=== PATIENT | male | born 1955 | race Hispanic/Latino ===

== ENCOUNTER 2020-01-13 16:45 | Inpatient (IN) | payer OTHER, SELFPAY ==
[2020-01-13 18:15] LABS: Basophils % (Auto) 0.1 % (0.0-1.8); Hematocrit 46.4 % (35.5-45.6); Hemoglobin 15.9 gm/dl (11.8-15.2); Mean Corpuscular HGB Conc 34 % (32-34); Mean Corpuscular Volume 95 fl (84-94); Monocytes # (Auto) 0.5 K/mm3 (0.0-0.8); Monocytes % (Auto) 6.6 % (0.0-7.3); Platelet Count 195 K/mm3 (140-440); Red Blood Count 4.88 M/mm3 (3.65-5.03); Red Cell Distribution Width 13.5 % (13.2-15.2)
[2020-01-13 18:30] LABS: BUN/Creatinine Ratio 13; Blood Urea Nitrogen 13 mg/dL (9-20); Calcium 9.8 mg/dL (8.4-10.2); Hemolysis Index 7
[2020-01-13] MEDS ORDERED: SODIUM CHLORIDE 0.9% 500 ML 500 ML IV ONE (18:48)
[2020-01-13] MEDS ORDERED: METOCLOPRAMIDE 10 MG/2 ML INJ IV ONE (18:48)
--- NOTE | 2020-01-13 18:49 | Emergency Department Report ---
ED General Adult HPI - General Chief complaint: Dizziness Stated complaint: DIZZINESS PUI?: No Time Seen by Provider: 01/13/20 17:59 Source: patient, EMS ( EMS documentation not available at time of chart dictation ), RN notes reviewed Mode of arrival: Stretcher Limitations: Physical Limitation - History of Present Illness Initial comments: The patient is a 64-year-old gentleman. He is not known to myself previously. He does not have a primary care doctor. He states no chronic medical conditions that he is aware of. He denies fever, loss of taste, loss of smell, and coronavirus risk factor. The patient is brought to the hospital by emergency medical services. The patient states that yesterday, he was in his usual state of health, working, when at approximately 1:00 PM, developed a headache, which is associated with right upper extremity numbness, tingling, clumsiness, loss of balance, and right lower extremity weakness, and clumsiness. The headache is described as a "wham." The patient indicates that the headache did not feel thunderclap in nature. He reports that he lost his balance, and fell onto his back. He denies neck pain. There is a positive cough. He is not sure if he is talking in his normal voice. There is no chest pain. There is no abdominal pain. There is positive nausea. There were no irritative or obstructive urinary symptoms. The patient also describes chest tightness, which started earlier on yesterday, but the tightness does not radiate to the back, arms or neck. There is no vomiting or diaphoresis. He does not endorse exertional shortness of breath. Chest tightness started after his headache and neurologic symptoms. -: Sudden, days(s) Location: head Quality: other Consistency: other Improves with: other Worsens with: other Associated Symptoms: other - Related Data Previous Rx's Medication Instructions Recorded Last Taken Type Nicotine [Habitrol] 21 mg TD DAILY #45 patch 04/20/13 Unknown Rx amLODIPine 5 mg PO QDAY #30 tablet 04/20/13 Unknown Rx Allergies Allergy/AdvReac Type Severity Reaction Status Date / Time No Known Allergies Allergy Unverified 04/16/13 21:15 ED Review of Systems ROS: Stated complaint: DIZZINESS Other details as noted in HPI Constitutional: malaise. denies: fever Eyes: denies: eye discharge ENT: denies: congestion Respiratory: cough Cardiovascular: chest pain Gastrointestinal: nausea. denies: abdominal pain Genitourinary: denies: dysuria Musculoskeletal: myalgia Neurological: headache, weakness, numbness, abnormal gait Psychiatric: as per HPI Hematological/Lymphatic: as per HPI. denies: easy bleeding ED Past Medical Hx - Past Medical History Previous Medical History?: Yes Hx Hypertension: Yes (non-compliance) - Surgical History Past Surgical History?: No - Social History Smoking Status: Current Every Day Smoker Substance Use Type: None - Medications Home Medications: Home Medications Medication Instructions Recorded Confirmed Last Taken Type Nicotine [Habitrol] 21 mg TD DAILY #45 patch 04/20/13 Unknown Rx amLODIPine 5 mg PO QDAY #30 tablet 04/20/13 Unknown Rx ED Physical Exam - General Limitations: Physical Limitation General appearance: alert, in no apparent distress - Head Head exam: Present: atraumatic, normocephalic - Eye Eye exam: Present: normal appearance, EOMI Pupils: Absent: unequal - ENT ENT exam: Present: normal exam, normal orophraynx, mucous membranes moist, normal external ear exam, other (Patient has poor dentition) - Neck Neck exam: Present: normal inspection, full ROM. Absent: tenderness, meningismus - Respiratory Respiratory exam: Present: rhonchi (Rhonchi noted in the right hemithorax). Absent: respiratory distress - Cardiovascular Cardiovascular Exam: Present: regular rate, normal rhythm, normal heart sounds. Absent: bradycardia, tachycardia, irregular rhythm, systolic murmur, diastolic murmur, rubs, gallop - GI/Abdominal GI/Abdominal exam: Present: soft, normal bowel sounds. Absent: distended, tenderness, guarding, rebound, rigid, pulsatile mass - Rectal Rectal exam: Present: deferred - Extremities Exam Extremities exam: Present: normal inspection, full ROM, other (2+ pulses noted in the bilateral upper and lower extremities. There is no palpable cord. negative Homans sign. Muscular compartments are soft. The pelvis is stable.). Absent: pedal edema, calf tenderness - Back Exam Back exam: Present: normal inspection. Absent: tenderness, CVA tenderness (R), CVA tenderness (L), paraspinal tenderness, vertebral tenderness - Neurological Exam Neurological exam: Present: alert, oriented X3 - Expanded Neurological Exam Expanded Neurological exam: Present: tremor, protecting the airway. Absent: innattentive, receptive aphasia, expressive aphasia, total aphasia Patient oriented to: Present: person, place, time Speech: Present: fluid speech Cranial nerves: Tongue Deviation: Normal, Nystagmus: Abnormal Right, Abnormal Left (There is right beating non-fatigable nystagmus noted. There is no left- sided nystagmus noted), Facial Sensation: Normal, Facial Palsy with Forehead Movement: Normal, Facial Palsy without Forehead Movement: Normal Ataxia: Present: yes (The patient is not able to walk) Cerebellar function: Finger to Nose: Abnormal Right, Heel to [place]: Abnormal Right, Romberg: Abnormal Right, Abnormal Left (Unable to test) Upper motor neuron: Pronator Drift: Abnormal Right, Sensory Extinction: Abnormal Right Sensory exam: Upper Extremity Light Touch: Abnormal Right Motor strength exam: RUE: 4, LUE: 5, RLE: 4, LLE: 5 Best Eye Response (Pari): (4) open spontaneously Best Motor Response (Kingman): (6) obeys commands Best Verbal Response (Pari): (5) oriented Kingman Total: 15 - Psychiatric Psychiatric exam: Present: anxious - Skin Skin exam: Present: warm, dry, intact, normal color. Absent: rash ED Course Vital Signs 01/13/20 01/13/20 01/13/20 18:04 18:31 18:45 Temperature Pulse Rate 81 81 78 Respiratory 14 20 Rate Blood Pressure 157/96 157/96 O2 Sat by Pulse 96 95 Oximetry 01/13/20 01/13/20 01/13/20 19:00 19:02 19:29 Temperature 98.9 F Pulse Rate 77 82 Respiratory 15 15 Rate Blood Pressure 157/96 157/96 O2 Sat by Pulse 96 Oximetry 01/13/20 01/13/20 01/13/20 19:31 19:45 20:01 Temperature Pulse Rate 80 77 79 Respiratory 16 13 19 Rate Blood Pressure 157/96 157/96 157/96 O2 Sat by Pulse Oximetry 01/13/20 01/13/20 20:15 20:31 Temperature Pulse Rate 78 78 Respiratory 12 14 Rate Blood Pressure 157/96 157/96 O2 Sat by Pulse Oximetry - Reevaluation(s) Reevaluation #1: 01/13/20 19:02 Differential diagnosis, including but not limited to: Subacute stroke, aortic dissection, aspiration Acute coronary syndrome Assessment and plan: 64-year-old gentleman, who denies DVT and pulmonary embolism risk factors, who is low risk by Wells criteria who denies COVID symptomatology, who was in his usual state of health yesterday, when at approximately 1:00 PM, developed a headache, and concerning neurologic findings, including unsteady gait, clumsiness in the right arm and right leg. On his exam, he is non-fatigable right beating nystagmus with both eyes, we do not see an internuclear ophthalmoplegia, he has clumsiness in his right arm and leg, decreased sensation to light touch in his right arm, and weakness in his right arm. The patient is not a TPA candidate as he presents more than 4.5 hours after s ymptom onset. He is unlikely to benefit from endovascular intervention, but we will obtain a CT angiogram head and neck to evaluate for large vessel occlusion, and also aortic dissection extending into the carotid circulation. There is no pulsatile abdominal mass, there are equal pulses in the upper and lower extremities, he does not endorse abdominal pain, he does not endorse posterior thoracic pain. Therefore, it is unlikely that he has an aortic dissection distal to the diaphragm. We will also treat his symptoms. We will obtain an x-ray of the chest. I discussed plan of care with the patient, who verbalized understanding, and who is amenable to this plan of care. Reevaluation #2: 01/13/20 21:21 CT angiogram neck is reviewed and appreciated. I contacted the interpreting radiologist, and we discussed the study. He endorses that the patient may have an occluded right vertebral artery at the level of C1/2. I [address] scan, and asked them to [facility] Crown Buffer to reach out to [facility] to discuss. 01/13/20 21:30 01/13/20 21:34 Images were reviewed by [facility], Dr. Willis. They recommend that patient does not require transfer for endovascular intervention at this time. Hospital physician, Dr. Ebony Benjamin to admit ED Medical Decision Making - Lab Data Result diagrams: 01/13/20 17:41 01/13/20 17:41 Vital Signs 01/13/20 01/13/20 01/13/20 18:04 18:31 18:45 Pulse Rate 81 81 78 Respiratory 14 20 Rate Blood Pressure 157/96 157/96 O2 Sat by Pulse 96 95 Oximetry Lab Results 01/13/20 01/13/20 01/13/20 Range/Units 17:41 17:41 17:41 WBC 7.4 (4.5-11.0) K/mm3 RBC 4.88 (3.65-5.03) M/mm3 Hgb 15.9 H (11.8-15.2) gm/dl Hct 46.4 H (35.5-45.6) % MCV 95 H (84-94) fl MCH 33 H (28-32) pg MCHC 34 (32-34) % RDW 13.5 (13.2-15.2) % Plt Count 195 (140-440) K/mm3 Lymph % (Auto) 13.0 L (13.4-35.0) % Ritchie % (Auto) 6.6 (0.0-7.3) % Eos % (Auto) 0.0 (0.0-4.3) % Baso % (Auto) 0.1 (0.0-1.8) % Lymph # 1.0 L (1.2-5.4) K/mm3 Ritchie # 0.5 (0.0-0.8) K/mm3 Eos # 0.0 (0.0-0.4) K/mm3 Baso # 0.0 (0.0-0.1) K/mm3 Seg Neutrophils % 80.3 H (40.0-70.0) % Seg Neutrophils # 6.0 (1.8-7.7) K/mm3 Sodium 139 (137-145) mmol/L Potassium 4.4 (3.6-5.0) mmol/L Chloride 98.0 (98-107) mmol/L Carbon Dioxide 24 (22-30) mmol/L Anion Gap 21 mmol/L BUN 13 (9-20) mg/dL Creatinine 1.0 (0.8-1.5) mg/dL Estimated GFR > 60 ml/min BUN/Creatinine Ratio 13 % Glucose 157 H (75-100) mg/dL Calcium 9.8 (8.4-10.2) mg/dL Salicylates < 0.3 L (2.8-20.0) mg/dL Acetaminophen (10.0-30.0) ug/mL Plasma/Serum Alcohol (0-0.07) % 01/13/20 01/13/20 Range/Units 17:41 17:41 WBC (4.5-11.0) K/mm3 RBC (3.65-5.03) M/mm3 Hgb (11.8-15.2) gm/dl Hct (35.5-45.6) % MCV (84-94) fl MCH (28-32) pg MCHC (32-34) % RDW (13.2-15.2) % Plt Count (140-440) K/mm3 Lymph % (Auto) (13.4-35.0) % Ritchie % (Auto) (0.0-7.3) % Eos % (Auto) (0.0-4.3) % Baso % (Auto) (0.0-1.8) % Lymph # (1.2-5.4) K/mm3 Ritchie # (0.0-0.8) K/mm3 Eos # (0.0-0.4) K/mm3 Baso # (0.0-0.1) K/mm3 Seg Neutrophils % (40.0-70.0) % Seg Neutrophils # (1.8-7.7) K/mm3 Sodium (137-145) mmol/L Potassium (3.6-5.0) mmol/L Chloride (98-107) mmol/L Carbon Dioxide (22-30) mmol/L Anion Gap mmol/L BUN (9-20) mg/dL Creatinine (0.8-1.5) mg/dL Estimated GFR ml/min BUN/Creatinine Ratio % Glucose (75-100) mg/dL Calcium (8.4-10.2) mg/dL Salicylates (2.8-20.0) mg/dL Acetaminophen < 5.0 L (10.0-30.0) ug/mL Plasma/Serum Alcohol < 0.01 (0-0.07) % - EKG Data -: EKG Interpreted by Or EKG shows normal: sinus rhythm Rate: normal - EKG Data When compared to previous EKG there are: previous EKG unavailable 01/13/20 19:02 There is no prior EKG available for comparison. There is a sinus rhythm, 79 bpm, normal axis, QTC is prolonged, poor R wave progression, the EKG is abnormal. The EKG is not a STEMI. - Radiology Data Radiology results: pending, report reviewed, image reviewed Noncontrast CT scan of the brain and cervical spine negative for acute findings. X-ray of the chest to my interpretation appears to show no acute findings Print Report Referring Physician: ROBBIE PANDEY Patient Name: LEIF VALDEZ Date of : 1955 Sex: Male Report Date: 2020-01-13 Report Status: Finalized Findings [facility] [address] [place] [address] Cat Scan Report Signed Patient: LEIF VALDEZ MR#: [id number] : 1955 Acct:[id number] Age/Sex: 64 / M ADM Date: 01/13/20 Loc: ED Attending Dr: Ordering Physician: ROBBIE PANDEY MD Date of Service: 01/13/20 Procedure(s): CT angio neck Accession Number(s): [id number] cc: ROBBIE PANDEY MD CTA neck with and without contrast CLINICAL HISTORY: Cerebrovascular accident. Technique: Multiple contiguous postcontrast axial CT images of the neck were obtained at 0.63 mm intervals. 3 plane MIP reconstructions were produced. Precontrast localizing images were also performed. All CT scans at this location are performed using the CT dose reduction for [employer]'s by means of automated exposure control. FINDINGS: There are foci of calcification involving the proximal internal carotid arteries bilaterally without significant stenosis by NASCET criteria. The more distal cervical ICAs are unremarkable. 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 This vessels not clearly a defined more distally and may be occluded at. The left vertebral artery is clearly dominant without significant focal narrowing. There are foci of calcification involving the aortic arch without significant stenosis of the arch vessels. The CTA head will be dictated separately. IMPRESSION: There is mild calcified plaque involving the proximal internal carotid arteries without significant stenosis by NASCET criteria. There is not able hypoplasia of the right vertebral artery which is not well visualized distal to the C1-2 level. The left vertebral artery is clearly dominant. Signer Name: Robbie Seals MD Signed: 01/13/2020 8:36 PM Workstation Name: [id number] Transcribed By: MR Dictated By: Robbie Seals MD Electronically Authenticated By: Robbie Seals MD Signed Date/Time: 01/13/202035 DD/ 29 TD/TT: Critical Care Time: Yes Critical care time in (mins) excluding proc time.: 45 Critical care attestation.: If time is entered above; I have spent that time in minutes in the direct care of this critically ill patient, excluding procedure time. ED Disposition Clinical Impression: CVA (cerebral vascular accident), Acute chest pain Disposition: OP ADMIT IP TO THIS HOSP Is pt being admited?: Yes Does the pt Need Aspirin: Yes Condition: Stable Instructions: Chest Pain (ED) Referrals: PRIMARY CARE, [Primary Care Provider] - 3-5 Days - Assessment Assessment Interval: Baseline - Level of Consciousness 1a. Level of Consciousness: alert/keenly responsive - LOC Questions 1b. LOC Questions: answers both correctly - LOC Command 1c. LOC Commands: performs tasks correctly - Best Gaze 2. Best Gaze: partial gaze palsy - Visual 3. Visual: no visual loss - Facial Palsy 4. Facial Palsy: normal symmetrical movement - Motor Arm 5a. Motor Arm Left: no drift 5b. Motor Arm Right: some gravity effort - Motor Leg 6a. Motor Leg Left: no drift 6b. Motor Leg Right: no drift - Limb Ataxia 7. Limb Ataxia: present 2 limbs - Sensory 8. Sensory: mild/moderate sensory loss - Best Language 9. Best Language: no aphasia - Dysarthria 10. Dysarthria: normal - Extinction and Inattention 11. Extinction/Inattention: no abnormality - Scoring Total Score: 6 Stroke Severity: Moderate Stroke
--- NOTE | 2020-01-13 18:57 | Cat Scan Report ---
CT head/brain wo con INDICATION / CLINICAL INFORMATION: 64 years Male; fall/head injury. TECHNIQUE: Routine CT head without contrast. All CT scans at this location are performed using CT dos e reduction for ALARA by means of automated exposure control. COMPARISON: None. FINDINGS: BRAIN / INTRACRANIAL CONTENTS: There is moderate cerebral white matter disease most consistent with m icrovascular angiopathy. The findings include the gangliocapsular regions. There are small lacunar in farcts involving basal ganglia which appear chronic. There is mild cerebral atrophy. The ventricular system is correspondingly appropriate in size and configuration. There is no CT evidence of acute int racranial hemorrhage or significant mass effect. ORBITS: No significant abnormality of visualized orbits. SINUSES / MASTOIDS: No significant abnormality the visualized paranasal sinuses or mastoid air cells. CRANIOCERVICAL JUNCTION: No significant abnormality. ADDITIONAL FINDINGS: None. IMPRESSION: 1. 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 Signer Name: Robbie Seals MD Signed: 01/13/2020 6:52 PM Workstation Name: [id number]
--- NOTE | 2020-01-13 19:01 | Cat Scan Report ---
CT cervical spine wo con INDICATION / CLINICAL INFORMATION: 64 years Male; fall/head injury. TECHNIQUE: Axial CT images of the cervical spine were obtained. Sagittal and coronal reformatted images were pr oduced. All CT scans at this location are performed using CT dose reduction for ALARA by means of aut omated exposure control. COMPARISON: None available. FINDINGS: POST-SURGICAL CHANGES: None. ALIGNMENT: There is mild curvature the cervical spine, convex toward the left. There is mild rotation at C1-2 which appears to be related to the degree of curvature. VERTEBRAE: There are degenerative endplate changes at C5-6 and C6-7. There is no clear CT evidence o f acute fracture involving the cervical spine. INTRAVERTEBRAL DISCS: The right facet and uncovertebral joint hypertrophy at C2-3 results in moderate right neural foraminal narrowing. There is marked foraminal narrowing bilaterally at C3-4. The disc bulge appears to efface the ventral subarachnoid space. There is moderate to marked foraminal narrowi ng at C4-5, greater on the left. The posterior spondylosis at C5-6 effaces the ventral subarachnoid space with encroachment on the lat eral recesses. There is marked neural foraminal narrowing bilaterally. There is also marked left fora zehra narrowing at C6-7. PARASPINAL SOFT TISSUES: No prevertebral soft tissue fluid collections are identified. ADDITIONAL FINDINGS: None. IMPRESSION: 1. There is no CT evidence of acute fracture involving the cervical spine. 2. There is mild curvature and rotation of the cervical spine with multilevel degenerative the change s as detailed above. Signer Name: Robbie Seals MD Signed: 01/13/2020 6:57 PM Workstation Name: [id number]
--- NOTE | 2020-01-13 19:41 | XRay Report ---
CHEST PA AND LATERAL VIEWS INDICATION: cough, right sided rhonchi. COMPARISON: 03/04/2013 FINDINGS: Support devices: None Heart: Normal and unchanged Lungs/Pleura: No acute pulmonary or pleural findings. IMPRESSION: 1. No active disease and no interval change. Signer Name: Pasquale Hendrickson MD Signed: 01/13/2020 7:37 PM Workstation Name: [email or web address]
--- NOTE | 2020-01-13 20:40 | Cat Scan Report ---
CTA neck with and without contrast CLINICAL HISTORY: Cerebrovascular accident. Technique: Multiple contiguous postcontrast axial CT images of the neck were obtained at 0.63 mm inte rvals. 3 plane MIP reconstructions were produced. Precontrast localizing images were also performed. All CT scans at this location are performed using the CT dose reduction for ALARA by means of automat ed exposure control. FINDINGS: There are foci of calcification involving the proximal internal carotid arteries bilaterall y without significant stenosis by NASCET criteria. The more distal cervical ICAs are unremarkable. There is notable hypoplasia of the right vertebral artery which is visualized to the C1-L2 level. Thi s vessels not clearly a defined more distally and may be occluded at. The left vertebral artery is cl early dominant without significant focal narrowing. There are foci of calcification involving the aor tic arch without significant stenosis of the arch vessels. The CTA head will be dictated separately. IMPRESSION: There is mild calcified plaque involving the proximal internal carotid arteries without significant s tenosis by NASCET criteria. 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 The left vertebral artery is clearly dominant. Signer Name: Robbie Seals MD Signed: 01/13/2020 8:36 PM Workstation Name: [id number]
[2020-01-13 21:40] LABS: Amphetamine Screen,Urine PRESUMPTIVE NEGATIVE; Bacteria,Urine 1+ /HPF (Negative); Benzodiazepines Screen,Urine PRESUMPTIVE NEGATIVE; Bilirubin,Urine NEG (Negative); Blood,Urine SM (Negative); Cannabinoid Screen,Urine PRESUMPTIVE NEGATIVE; Cocaine Screen,Urine PRESUMPTIVE NEGATIVE; Color,Urine Yellow (Yellow); Methadone Screen,Urine PRESUMPTIVE NEGATIVE; Mucus,Urine 1+ /HPF; Opiate Screen,Urine PRESUMPTIVE NEGATIVE; Protein,Urine <15 mg/dL mg/dL (Negative)
--- NOTE | 2020-01-13 21:47 | Cat Scan Report ---
CTA head with and without IV contrast. CLINICAL HISTORY: Cerebrovascular accident. Technique: Multiple contiguous postcontrast CT images of the head were obtained at 0.63 mm intervals. 3 plane MIP reconstructions were obtained. Precontrast localizing images were also performed. CT scan s at this location are performed using the CT dose reduction for [employer] by means of automated exposure control. FINDINGS: There is atherosclerotic calcification involving the distal internal carotid arteries witho ut significant focal stenosis by NASCET criteria. The distal right vertebral artery appears occluded at the C1-2 level. There appears to be very small component of retrograde flow within the distalmost right vertebral artery. The left vertebral artery is clearly dominant and continues as the basilar artery at. There is no focal narrowing of the basila r artery. 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 There is no significant focal stenosis involvin g the proximal cerebral arteries or adjacent branches. There is a small 2 to 3 mm outpouching directed laterally from the right MCA trifurcation best seen o n the axial images at. This finding would be compatible with small aneurysm. There is no further CTA evidence of intracranial aneurysm. 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 The dural venous sin uses opacify with contrast. 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 There is atherosclerotic calcification involving distal internal carotid arteries without significant stenosis by NASCET criteria. 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 There was delay dictation of this exam secondary to technical factors. The study was dictated emergen tly once fully completed at 8:41 PM Central standard time. Signer Name: Robbie Seals MD Signed: 01/13/2020 9:43 PM Workstation Name: [email or web address]
[2020-01-13] MEDS ORDERED: ASPIRIN 81 MG TAB CHEW PO ONE (22:58)
[2020-01-13] MEDS ORDERED: NITROGLYCERIN 0.4 MG TAB SUBL SL PRN (23:05)
[2020-01-13] MEDS ORDERED: PROMETHAZINE 25 MG RECT SUPP PR PRN (23:05)
[2020-01-13] MEDS ORDERED: ACETAMINOPHEN 325 MG TAB PO PRN (23:05)
[2020-01-13] MEDS ORDERED: ONDANSETRON 4 MG/2 ML INJ IV PRN (23:05)
[2020-01-13] MEDS ORDERED: MORPHINE 2 MG/1 ML INJ IV PRN (23:05)
[2020-01-13] MEDS ORDERED: METOCLOPRAMIDE 10 MG TAB PO PRN (23:05)
[2020-01-13] MEDS ORDERED: MAGNESIUM HYDROXIDE (MOM) ORAL LIQD UDC PO PRN ×2 (23:05)
--- NOTE | 2020-01-13 23:49 | History and Physical Report ---
History of Present Illness Date of examination: 01/13/20 Date of admission: 01/13/2020 Chief complaint: Right-sided weakness and numbness Chest tightness History of present illness: 64-year-old male with known history of hypertension presents to the emergency room today with a sudden onset of headache and right-sided upper extremity numbness , tingling and loss of balance. Symptoms started yesterday. Patient indicates that he fell backwards after losing his balance. Denies any loss of consciousness, no neck pain, no shortness of breath. He however had some chest tightness and also had some nausea. He denies any vomiting or diarrhea. 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 CT scan of the head shows no acute changes. Past History Past Medical History: hypertension Past Surgical History: denies: No surgical history Social history: smoking (2 packs of cigarette daily) Family history: denies: no significant family history Medications and Allergies Allergies Allergy/AdvReac Type Severity Reaction Status Date / Time No Known Allergies Allergy Unverified 04/16/13 21:15 Home Medications Medication Instructions Recorded Confirmed Last Taken Type Nicotine [Habitrol] 21 mg TD DAILY #45 patch 04/20/13 Unknown Rx amLODIPine 5 mg PO QDAY #30 tablet 04/20/13 Unknown Rx Active Meds: Active Medications Acetaminophen (Tylenol) 650 mg PO Q4H PRN PRN Reason: Pain, Mild (1-3) Aspirin (Aspirin) 325 mg PO QDAY PRANEETH Bisacodyl (Dulcolax) 10 mg [place] QDAY PRN PRN Reason: Constipation Magnesium Hydroxide (Milk Of Magnesia) 30 ml PO Q4H PRN PRN Reason: Constipation Metoclopramide HCl (Reglan) 10 mg PO Q6H PRN PRN Reason: Nausea And Vomiting Morphine Sulfate (Morphine) 2 mg IV Q5MIN PRN PRN Reason: Chest Pain unrelieved by NTG Nitroglycerin (Nitrostat) 0.4 mg SL Q5M PRN PRN Reason: Chest Pain Ondansetron HCl (Zofran) 4 mg IV Q8H PRN PRN Reason: Nausea And Vomiting Promethazine HCl (Phenergan) 25 mg [place] Q6H PRN PRN Reason: Nausea And Vomiting Sodium Chloride (Sodium Chloride Flush Syringe 10 Ml) 10 ml IV BID PRANEETH Sodium Chloride (Sodium Chloride Flush Syringe 10 Ml) 10 ml IV PRN PRN PRN Reason: LINE FLUSH Review of Systems Constitutional: no fever, no chills Cardiovascular: chest pain, no palpitations Respiratory: no cough, no shortness of breath Gastrointestinal: nausea, no abdominal pain, no vomiting, no diarrhea Genitourinary Male: no dysuria, no hematuria Musculoskeletal: no neck pain, no low back pain Integumentary: no rash, no pruritis Neurological: ataxia, headaches, change in speech, no confusion Psychiatric: anxiety, no depression Exam - Constitutional Vitals: Temp Pulse Resp BP Pulse Ox 98.0 F 78 14 157/96 96 01/13/20 22:05 01/13/20 20:31 01/13/20 20:31 01/13/20 20:31 01/13/20 19:00 General appearance: Present: no acute distress, well-nourished - EENT Eyes: Present: PERRL, EOM intact ENT: hearing intact, clear oral mucosa, dentition normal - Neck Neck: Present: supple, normal ROM - Respiratory Respiratory effort: normal Respiratory: bilateral: CTA - Cardiovascular Rhythm: regular Heart Sounds: Present: S1 & S2 - Extremities Extremities: no ischemia, pulses intact, pulses symmetrical, No edema, Full ROM Peripheral Pulses: within normal limits - Abdominal General gastrointestinal: Present: soft, non-tender, non-distended, normal bowel sounds - Integumentary Integumentary: Present: clear, warm, dry - Musculoskeletal Musculoskeletal: strength equal bilaterally - Psychiatric Psychiatric: appropriate mood/affect, intact judgment & insight, cooperative - Neurologic Neurologic: CNII-XII intact, moves all extremities HEART Score - HEART Score Troponin: Troponin T < 0.010 ng/mL (0.00-0.029) 01/13/20 17:41 Results - Labs CBC & Chem 7: 01/14/20 04:35 01/13/20 23:51 Labs: Abnormal lab results 01/13/20 01/13/20 01/13/20 Range/Units 17:41 17:41 17:41 Hgb 15.9 H (11.8-15.2) gm/dl Hct 46.4 H (35.5-45.6) % MCV 95 H (84-94) fl MCH 33 H (28-32) pg Lymph % (Auto) 13.0 L (13.4-35.0) % Lymph # 1.0 L (1.2-5.4) K/mm3 Seg Neutrophils % 80.3 H (40.0-70.0) % Glucose 157 H (75-100) mg/dL Ur Specific [place] (1.003-1.030) Salicylates < 0.3 L (2.8-20.0) mg/dL Acetaminophen (10.0-30.0) ug/mL 01/13/20 01/13/20 Range/Units 17:41 Unknown Hgb (11.8-15.2) gm/dl Hct (35.5-45.6) % MCV (84-94) fl MCH (28-32) pg Lymph % (Auto) (13.4-35.0) % Lymph # (1.2-5.4) K/mm3 Seg Neutrophils % (40.0-70.0) % Glucose (75-100) mg/dL Ur Specific [place] 1.044 H (1.003-1.030) Salicylates (2.8-20.0) mg/dL Acetaminophen < 5.0 L (10.0-30.0) ug/mL Assessment and Plan - Patient Problems (1) CVA (cerebral vascular accident) Current Visit: Yes Status: Acute Plan to address problem: Patient readmitted and placed on telemetry. Will place on daily aspirin. Patient will be scheduled for MRI of the brain. We will request neurology evaluation and recommendation. (2) Acute chest pain Current Visit: Yes Status: Acute Plan to address problem: We will check serial cardiac enzymes and continue daily aspirin. Will place on sublingual nitroglycerin and IV morphine as needed. We will also request cardiology evaluation. (3) HTN (hypertension) Current Visit: No Status: Chronic Plan to address problem: We will continue routine home medications and monitor vital signs closely. (4) DVT prophylaxis Current Visit: Yes Status: Acute Plan to address problem: Patient placed on subcutaneous heparin. (5) Full code status Current Visit: Yes Status: Acute
[2020-01-14 00:20] LABS: Basophils % (Auto) 0.2 % (0.0-1.8); Eosinophils % (Auto) 0.3 % (0.0-4.3); Hematocrit 44.6 % (35.5-45.6); Hemoglobin 15.1 gm/dl (11.8-15.2); Lymphocytes # (Auto) 1.9 K/mm3 (1.2-5.4); Mean Corpuscular HGB Conc 34 % (32-34); Mean Corpuscular Volume 95 fl (84-94); Monocytes # (Auto) 0.7 K/mm3 (0.0-0.8); Monocytes % (Auto) 9.8 % (0.0-7.3); Platelet Count 201 K/mm3 (140-440); Red Blood Count 4.68 M/mm3 (3.65-5.03); Red Cell Distribution Width 13.4 % (13.2-15.2)
[2020-01-14 00:39] LABS: BUN/Creatinine Ratio 12; Blood Urea Nitrogen 12 mg/dL (9-20); Calcium 9.3 mg/dL (8.4-10.2); Hemolysis Index 9
[2020-01-14 05:08] LABS: Basophils % (Auto) 0.3 % (0.0-1.8); Eosinophils # (Auto) 0.1 K/mm3 (0.0-0.4); Eosinophils % (Auto) 0.7 % (0.0-4.3); Hemoglobin 16.4 gm/dl (11.8-15.2); Lymphocytes # (Auto) 1.6 K/mm3 (1.2-5.4); Lymphocytes % (Auto) 21.8 % (13.4-35.0); Mean Corpuscular HGB Conc 34 % (32-34); Mean Corpuscular Volume 94 fl (84-94); Monocytes # (Auto) 0.8 K/mm3 (0.0-0.8); Monocytes % (Auto) 10.5 % (0.0-7.3); Platelet Count 197 K/mm3 (140-440); Red Blood Count 5.09 M/mm3 (3.65-5.03); Red Cell Distribution Width 13.5 % (13.2-15.2)
[2020-01-14 05:15] LABS: INR 1.01 (0.87-1.13)
[2020-01-14 05:50] LABS: BUN/Creatinine Ratio 12; Blood Urea Nitrogen 12 mg/dL (9-20); Calcium 9.6 mg/dL (8.4-10.2); Chol/HDL Ratio 4.18 %; HDL Cholesterol 38 mg/dL (40-59); Hemolysis Index 11; LDL Cholesterol,Direct 109 mg/dL (50-130)
[2020-01-14] MEDS ORDERED: hydrALAZINE 20 MG/1 ML INJ IV SCH (06:00)
[2020-01-14] MEDS: hydrALAZINE 20 MG/1 ML INJ IV PRN (06:05)
[2020-01-14] MEDS ORDERED: REGADENOSON 0.4 MG/5 ML INJ IV ONE (07:08)
[2020-01-14] MEDS: HEPARIN 5,000 UNIT/1 ML VIAL SUB-Q SCH ×3 (07:14→21:40)
--- NOTE | 2020-01-14 10:15 | Magnetic Resonance Report ---
MRI BRAIN 01/14/2020 INDICATION / CLINICAL INFORMATION: MAIN: stroke, right sided weakness. TECHNIQUE: Multiplanar, multisequence MR images of the brain were obtained. COMPARISON: None available. FINDINGS: BRAIN / INTRACRANIAL CONTENTS: Unenhanced MR images of the brain demonstrate a focal area of restrict ed diffusion in the right posterior lateral medulla, over an area of approximately 9 mm. Increased di ffusion weighted signal and decreased ADC signal is present, consistent with acute ischemic injury. N o other areas of acute ischemic injury are present. Ventricles and sulci are slightly prominent in size, consistent with normal age-related atrophic szymanski ge. Minimal chronic white matter T2 weighted hyperintensities are present in the periventricular and deep white matter hemispheres. There is no evidence of hemorrhage or mass. There are no abnormal extra-axial fluid collections. EXTRACRANIAL: Unremarkable CRANIOCERVICAL JUNCTION: No significant abnormality. VASCULAR FLOW-VOIDS: There is no visible flow void in the right distal vertebral artery. On the recen t CT angiogram, no flow enhancement was visible on the right distal vertebral artery. IMPRESSION: Acute right posterior lateral medulla infarct. Signer Name: Gene Simpson MD Signed: 01/14/2020 10:11 AM Workstation Name: [id number]
--- NOTE | 2020-01-14 11:40 | Progress Note ---
Assessment and Plan Assessment and plan: Acute CVA. 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 Await neurology evaluation. Continue aspirin and add Lipitor. Chest pain. Continue to follow serial cardiac isoenzymes and stress test pending. Cardiology consultation pending. Hypertension. Continue antihypertensive medications. DVT prophylaxis. History Interval history: No new issues overnight. Hospitalist Physical - Constitutional Vitals: Temp Pulse Resp BP Pulse Ox 98.0 F 75 18 146/76 94 01/14/20 07:31 01/14/20 10:55 01/14/20 07:31 01/14/20 07:31 01/14/20 07:31 General appearance: Present: no acute distress, well-nourished - EENT Eyes: Present: PERRL, EOM intact ENT: hearing intact, clear oral mucosa, dentition normal - Neck Neck: Present: supple, normal ROM - Respiratory Respiratory effort: normal Respiratory: bilateral: CTA - Cardiovascular Rhythm: regular Heart Sounds: Present: S1 & S2. Absent: gallop, rub - Extremities Extremities: no ischemia, No edema, Full ROM - Abdominal General gastrointestinal: soft, non-tender, non-distended, normal bowel sounds - Integumentary Integumentary: Present: clear, warm, dry - Neurologic Neurologic: CNII-XII intact, moves all extremities HEART Score - HEART Score Troponin: Troponin T < 0.010 ng/mL (0.00-0.029) 01/14/20 04:35 Results - Labs CBC & Chem 7: 01/14/20 04:35 01/14/20 04:35 Labs: Laboratory Last Values WBC 7.6 K/mm3 (4.5-11.0) 01/14/20 04:35 RBC 5.09 M/mm3 (3.65-5.03) H 01/14/20 04:35 Hgb 16.4 gm/dl (11.8-15.2) H 01/14/20 04:35 Hct 48.0 % (35.5-45.6) H 01/14/20 04:35 MCV 94 fl (84-94) 01/14/20 04:35 MCH 32 pg (28-32) 01/14/20 04:35 MCHC 34 % (32-34) 01/14/20 04:35 RDW 13.5 % (13.2-15.2) 01/14/20 04:35 Plt Count 197 K/mm3 (140-440) 01/14/20 04:35 Lymph % (Auto) 21.8 % (13.4-35.0) 01/14/20 04:35 [place] % (Auto) 10.5 % (0.0-7.3) H 01/14/20 04:35 Eos % (Auto) 0.7 % (0.0-4.3) 01/14/20 04:35 Baso % (Auto) 0.3 % (0.0-1.8) 01/14/20 04:35 Lymph # 1.6 K/mm3 (1.2-5.4) 01/14/20 04:35 [place] # 0.8 K/mm3 (0.0-0.8) 01/14/20 04:35 Eos # 0.1 K/mm3 (0.0-0.4) 01/14/20 04:35 Baso # 0.0 K/mm3 (0.0-0.1) 01/14/20 04:35 Seg Neutrophils % 66.7 % (40.0-70.0) 01/14/20 04:35 Seg Neutrophils # 5.1 K/mm3 (1.8-7.7) 01/14/20 04:35 PT 13.4 Sec. (12.2-14.9) 01/14/20 04:35 INR 1.01 (0.87-1.13) 01/14/20 04:35 Sodium 140 mmol/L (137-145) 01/14/20 04:35 Potassium 3.9 mmol/L (3.6-5.0) 01/14/20 04:35 Chloride 101.5 mmol/L (98-107) 01/14/20 04:35 Carbon Dioxide 27 mmol/L (22-30) 01/14/20 04:35 Anion Gap 15 mmol/L 01/14/20 04:35 BUN 12 mg/dL (9-20) 01/14/20 04:35 Creatinine 1.0 mg/dL (0.8-1.5) 01/14/20 04:35 Estimated GFR > 60 ml/min 01/14/20 04:35 BUN/Creatinine Ratio 12 % 01/14/20 04:35 Glucose 96 mg/dL (75-100) 01/14/20 04:35 Calcium 9.6 mg/dL (8.4-10.2) 01/14/20 04:35 Magnesium 2.00 mg/dL (1.7-2.3) 01/13/20 17:41 Total Creatine Kinase 132 units/L (55-170) 01/13/20 17:41 Troponin T < 0.010 ng/mL (0.00-0.029) 01/14/20 04:35 Triglycerides 95 mg/dL (2-149) 01/14/20 04:35 Cholesterol 159 mg/dL (50-199) 01/14/20 04:35 LDL Cholesterol Direct 109 mg/dL (50-130) 01/14/20 04:35 HDL Cholesterol 38 mg/dL (40-59) L 01/14/20 04:35 Cholesterol/HDL Ratio 4.18 % 01/14/20 04:35 Urine Color Yellow (Yellow) 01/13/20 Unknown Urine Turbidity Clear (Clear) 01/13/20 Unknown Urine pH 6.0 (5.0-7.0) 01/13/20 Unknown Ur Specific [place] 1.044 (1.003-1.030) H 01/13/20 Unknown Urine Protein <15 mg/dl mg/dL (Negative) 01/13/20 Unknown Urine Glucose (UA) 50 mg/dL (Negative) 01/13/20 Unknown Urine Ketones Neg mg/dL (Negative) 01/13/20 Unknown Urine Blood Sm (Negative) 01/13/20 Unknown Urine Nitrite Neg (Negative) 01/13/20 Unknown Urine Bilirubin Neg (Negative) 01/13/20 Unknown Urine Urobilinogen 2.0 mg/dL (<2.0) 01/13/20 Unknown Ur Leukocyte Esterase Neg (Negative) 01/13/20 Unknown Urine WBC (Auto) 4.0 /HPF (0.0-6.0) 01/13/20 Unknown Urine RBC (Auto) 4.0 /HPF (0.0-6.0) 01/13/20 Unknown Urine Bacteria (Auto) 1+ /HPF (Negative) 01/13/20 Unknown Urine Mucus 1+ /HPF 01/13/20 Unknown Salicylates < 0.3 mg/dL (2.8-20.0) L 01/13/20 17:41 Urine Opiates Screen Presumptive negative 01/13/20 Unknown Urine Methadone Screen Presumptive negative 01/13/20 Unknown Acetaminophen < 5.0 ug/mL (10.0-30.0) L 01/13/20 17:41 Ur Barbiturates Screen Presumptive negative 01/13/20 Unknown Ur Phencyclidine Scrn Presumptive negative 01/13/20 Unknown Ur Amphetamines Screen Presumptive negative 01/13/20 Unknown U Benzodiazepines Scrn Presumptive negative 01/13/20 Unknown Urine Cocaine Screen Presumptive negative 01/13/20 Unknown U Marijuana (THC) Screen Presumptive negative 01/13/20 Unknown Drugs of Abuse Note Disclamer 01/13/20 Unknown Plasma/Serum Alcohol < 0.01 % (0-0.07) 01/13/20 17:41 [place]/IV: Voiding Method Urinal IV Catheter Type [Right Peripheral IV Antecubital] Active Medications - Current Medications Current Medications: Generic Name Dose Route Start Last Admin Trade Name Freq PRN Reason Stop Dose Admin Acetaminophen 650 mg 01/13/20 23:05 Tylenol PO Q4H PRN Pain, Mild (1-3) Aspirin 325 mg 01/14/20 10:00 Aspirin PO QDAY PRANEETH Bisacodyl 10 mg 01/13/20 23:05 Dulcolax [place] QDAY PRN Constipation Heparin Sodium (Porcine) 5,000 unit 01/14/20 06:00 01/14/20 07:14 Heparin SUB-Q 5,000 unit Q8HR PRANEETH Administration Hydralazine HCl 10 mg 01/14/20 06:00 01/14/20 06:05 Apresoline IV 10 mg Q6H PRN Administration Hypertension Magnesium Hydroxide 30 ml 01/13/20 23:05 Milk Of Magnesia PO Q4H PRN Constipation Metoclopramide HCl 10 mg 01/13/20 23:05 Reglan PO Q6H PRN Nausea And Vomiting Morphine Sulfate 2 mg 01/13/20 23:05 01/14/20 07:14 Morphine IV 2 mg Q5MIN PRN Administration Chest Pain unrelieved by NTG Nitroglycerin 0.4 mg 01/13/20 23:05 Nitrostat SL Q5M PRN Chest Pain Ondansetron HCl 4 mg 01/13/20 23:05 Zofran IV Q8H PRN Nausea And Vomiting Promethazine HCl 25 mg 01/13/20 23:05 Phenergan [place] Q6H PRN Nausea And Vomiting Sodium Chloride 10 ml 01/14/20 10:00 Sodium Chloride Flush Syringe 10 Ml IV BID PRANEETH Sodium Chloride 10 ml 01/13/20 23:05 Sodium Chloride Flush Syringe 10 Ml IV PRN PRN LINE FLUSH
[2020-01-14] MEDS: ASPIRIN 325 MG TAB PO SCH (13:58)
--- NOTE | 2020-01-14 14:09 | History and Physical Report ---
History of Present Illness Date of examination: 01/14/20 Date of admission: 01/13/20 22:58 Chief complaint: Right upper extremity numbness and unsteadiness felt back word ,no LOC History of present illness: The patient is a 64-year-old gentleman, He does not have a primary care doctor. He states no chronic medical conditions that he is aware of. He denies fever, loss of taste, loss of smell, and coronavirus risk factor. The patient is brought to the hospital by emergency medical services. The patient states that yesterday, he was in his usual state of health, working, when at approximately 1:00 PM, developed a headache, which is associated with right upper extremity numbness, tingling, clumsiness, loss of balance, and right lower extremity weakness, and clumsiness. The headache is described as a "wham." The patient indicates that the headache did not feel thunderclap in nature. He reports that he lost his balance, and fell onto his back. He denies neck pain. There is a positive cough. He is not sure if he is talking in his normal voice. There is no chest pain. There is no abdominal pain. There is positive nausea. There were no irritative or obstructive urinary symptoms. The patient also describes chest tightness, which started earlier on yesterday, but the tightness does not radiate to the back, arms or neck. There is no vomiting or diaphoresis. He does not endorse exertional shortness of breath. Chest tightness started after his headache and neurologic symptoms. In ER CT brain is unremarkable UDS is negative according to pt. headache and chest pain are better today CTA brain and neck are remarkable for calcified ICA proximally and occluded right vertebral a.with possible anurysm 2-3 mm in right MCA distribution Echo is remarkable for EF#55-60% MRI suggestive of acute right lat. medulla infarct. LDL#109 Pt. smoke 2 ppd drinks 6ppweek Past History Past Medical History: hypertension Past Surgical History: denies: No surgical history Social history: smoking (2 packs of cigarette daily) Family history: denies: no significant family history Medications and Allergies Allergies Allergy/AdvReac Type Severity Reaction Status Date / Time No Known Allergies Allergy Unverified 04/16/13 21:15 Home Medications Medication Instructions Recorded Confirmed Last Taken Type No Known Home Medications [No 01/14/20 01/14/20 Unknown History Reported Home Medications] Active Meds: Active Medications Acetaminophen (Tylenol) 650 mg PO Q4H PRN PRN Reason: Pain, Mild (1-3) Aspirin (Aspirin) 325 mg PO QDAY [facility] Last Admin: 01/14/20 13:58 Dose: 325 mg Documented by: Atorvastatin Calcium (Lipitor) 40 mg PO QHS [facility] Bisacodyl (Dulcolax) 10 mg [place] QDAY PRN PRN Reason: Constipation Heparin Sodium (Porcine) (Heparin) 5,000 unit SUB-Q Q8HR [facility] Last Admin: 01/14/20 13:46 Dose: Not Given Documented by: Hydralazine HCl (Apresoline) 10 mg IV Q6H PRN PRN Reason: Hypertension Last Admin: 01/14/20 06:05 Dose: 10 mg Documented by: Magnesium Hydroxide (Milk Of Magnesia) 30 ml PO Q4H PRN PRN Reason: Constipation Metoclopramide HCl (Reglan) 10 mg PO Q6H PRN PRN Reason: Nausea And Vomiting Morphine Sulfate (Morphine) 2 mg IV Q5MIN PRN PRN Reason: Chest Pain unrelieved by NTG Last Admin: 01/14/20 07:14 Dose: 2 mg Documented by: Nitroglycerin (Nitrostat) 0.4 mg SL Q5M PRN PRN Reason: Chest Pain Ondansetron HCl (Zofran) 4 mg IV Q8H PRN PRN Reason: Nausea And Vomiting Promethazine HCl (Phenergan) 25 mg [place] Q6H PRN PRN Reason: Nausea And Vomiting Sodium Chloride (Sodium Chloride Flush Syringe 10 Ml) 10 ml IV BID [facility] Last Admin: 01/14/20 13:46 Dose: Not Given Documented by: Sodium Chloride (Sodium Chloride Flush Syringe 10 Ml) 10 ml IV PRN PRN PRN Reason: LINE FLUSH Review of Systems All systems: negative Constitutional: other (taking no medications at home !!!) Physical Examination - Vital Signs Vital Signs: Vital Signs Pulse 81 01/13/20 18:04 - Constitutional General appearance: comfortable - EENT EENT: Present: PERRL, mucous membranes moist - Cardiovascular Cardiovascular: Present: regular rate Extremities: Present: no peripheral edema bilatateraly - Integumentary Integumentary: Present: normal - Neurologic Cranial nerve examination: EOMI, V1/V2/V3 grossly intact, face symmetric, other (slight decrease sensation right side, gait not tested) Results - Laboratory Findings CBC and BMP: 01/14/20 04:35 01/14/20 04:35 Abnormal Lab Findings: Abnormal Labs 01/13/20 01/13/20 01/13/20 17:41 17:41 17:41 RBC Hgb 15.9 H Hct 46.4 H MCV 95 H MCH 33 H Lymph % (Auto) 13.0 L [place] % (Auto) Lymph # 1.0 L Seg Neutrophils % 80.3 H Glucose 157 H HDL Cholesterol Ur Specific [place] Salicylates < 0.3 L Acetaminophen 01/13/20 01/13/20 01/13/20 17:41 23:51 Unknown RBC Hgb Hct MCV 95 H MCH Lymph % (Auto) [place] % (Auto) 9.8 H Lymph # Seg Neutrophils % Glucose HDL Cholesterol Ur Specific [place] 1.044 H Salicylates Acetaminophen < 5.0 L 01/14/20 01/14/20 04:35 04:35 RBC 5.09 H Hgb 16.4 H Hct 48.0 H MCV MCH Lymph % (Auto) [place] % (Auto) 10.5 H Lymph # Seg Neutrophils % Glucose HDL Cholesterol 38 L Ur Specific [place] Salicylates Acetaminophen - Diagnostic Findings Additional findings: 1- This is 64 ys old male presented with new onset of right facial numbness and unsteady gait he is with HTN,HLPexcessive alcohol drinking and smoking Ct brain is unremarkable,MRI brain is remarkable for right lateral medulla MRA showed calcified proximal ICA and occluded right vertebral a. and atherosclerotic distal ICA bilateral with possible 2-3 mm aneurysm noted in R MCA Echo showed EF#55-60% LDL#109 2- Non specific CP with initial cardiac enzyme is negative 3- HTN is on no medication 4- HLP 5- Incidental finding of 2-3 mm right MCA anerysm 6- Excessive alcohol intake 6 PB weekly !! 7-Smoke 2ppd PLAN 1- Allow for permissive HTN <200/110 for 48 hour then better control BP <140/80 2-ASA 81 mg daily plus Plavix 75 mg daily for X3 months then only ASA 81 mg daily 3- Lipitor 40 mg daily 4- Dt precaution 5- DVT precaution 6- Stop smoking and drinking 7- Thiamin 250 mg IV daily X3 days 8- Consider Neurosurgical openion R/E incidental right MCA aneurysm 2-3 mm 9- Pt/ST evaluate 10- Cardiac follow up/ cardiac enzymes series will follow as needed
--- NOTE | 2020-01-14 15:13 | Vascular Lab Report ---
Bilateral Carotid Doppler Ultrasound INDICATION : stroke TECHNIQUE: Grayscale and color Doppler imaging performed through the neck. COMPARISON: None FINDINGS: Right: There is mild atherosclerotic disease in the carotid bulb extending into the proximal ICA. P eak systolic velocity in the CCA is 91 cm/s with end-diastolic velocity of 22 cm/s. Peak systolic jelena ocity in the proximal ICA is 86 cm/s with end-diastolic velocity of 23 cm/s. ICA to CCA ratio is less than 2. There is antegrade flow in the ECA and the vertebral artery. Left: There is no significant atherosclerotic disease. Peak systolic velocity in the CCA is 93 cm/s w ith end-diastolic velocity of 15 cm/s. Peak systolic velocity in the proximal ICA is 92 cm/s with end -diastolic velocity of 31 cm/s. ICA to CCA ratio is less than 2. There is antegrade flow in the ECA and the vertebral artery. IMPRESSION: No hemodynamically significant stenosis by NASCET criteria. Signer Name: Hernando Allen MD Signed: 01/14/2020 3:09 PM Workstation Name: [id number]
--- NOTE | 2020-01-14 16:15 | Treadmill Report ---
NUCLEAR PERFUSION STUDY. REASON FOR STUDY: Chest pain. READING PHYSICIAN: Dr. Hale. IMAGING PROTOCOL: The patient received 10 mCi of Technetium 99m Tetrofosmin for resting image and 28 mCi of Technetium 99m Tetrofosmin for stress imaging. The imaging for the whole procedure was completed 30-90 minutes following the initial injection of Technetium 99m Tetrofosmin. The SPECT imaging in the 180 degree arc was performed in the right anterior oblique projection. Computerized reconstruction of the images was performed for analysis. IMAGING RESULTS: Normal cavity size from stress to rest. Normal distribution of radionuclide in the anterior, inferior, septal, and apical regions. Gated SPECT, EF greater than 65% with no wall motion abnormality. The patient infused Lexiscan with no EKG changes. SUMMARY: 1. Negative Lexiscan EKG. 2. Normal rest and stress myocardial perfusion scan. No significant ischemia. No wall motion abnormality. Gated SPECT, EF greater than 65%. JOB# [id number] [id number]
--- NOTE | 2020-01-14 17:41 | Consultation ---
History of Present Illness Consult date: 01/14/20 Requesting physician: NIYAH SOLIS Consult reason: chest pain History of present illness: Pt is a 64 y.o. male with a past medical hx of HTN. No additional known medical hx. He is previously unknown to our practice. Pt presented c/o sudden onset headache, loss of balance, and RUE numbness/tingling that began yesterday. Pt endorses fall, no LOC. 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 Pt also reports non-specific chest tightness and nausea after the onset of neurological sx. Chest pain is intermittent and does not radiate. Pt denies palpitations, diaphoresis, dizziness, lightheadedness, syncope, SOB, cough, edema, orthopnea/PND, claudication, and fever/chills. Trop neg x 2. No acute ischemic changes on ECG. CXR reveals no acute findings. Past History Past Medical History: hypertension Past Surgical History: denies: No surgical history Social history: smoking (2 PPD) Family history: no significant family history Medications and Allergies Allergies Allergy/AdvReac Type Severity Reaction Status Date / Time No Known Allergies Allergy Unverified 04/16/13 21:15 Home Medications Medication Instructions Recorded Confirmed Last Taken Type No Known Home Medications [No 01/14/20 01/14/20 Unknown History Reported Home Medications] Active Meds: Active Medications Acetaminophen (Tylenol) 650 mg PO Q4H PRN PRN Reason: Pain, Mild (1-3) Aspirin (Aspirin) 325 mg PO QDAY [facility] Last Admin: 01/14/20 13:58 Dose: 325 mg Documented by: Atorvastatin Calcium (Lipitor) 40 mg PO QHS PRANEETH Bisacodyl (Dulcolax) 10 mg AR QDAY PRN PRN Reason: Constipation Heparin Sodium (Porcine) (Heparin) 5,000 unit SUB-Q Q8HR [facility] Last Admin: 01/14/20 13:46 Dose: Not Given Documented by: Hydralazine HCl (Apresoline) 10 mg IV Q6H PRN PRN Reason: Hypertension Last Admin: 01/14/20 06:05 Dose: 10 mg Documented by: Magnesium Hydroxide (Milk Of Magnesia) 30 ml PO Q4H PRN PRN Reason: Constipation Metoclopramide HCl (Reglan) 10 mg PO Q6H PRN PRN Reason: Nausea And Vomiting Morphine Sulfate (Morphine) 2 mg IV Q5MIN PRN PRN Reason: Chest Pain unrelieved by NTG Last Admin: 01/14/20 07:14 Dose: 2 mg Documented by: Nitroglycerin (Nitrostat) 0.4 mg SL Q5M PRN PRN Reason: Chest Pain Ondansetron HCl (Zofran) 4 mg IV Q8H PRN PRN Reason: Nausea And Vomiting Promethazine HCl (Phenergan) 25 mg AR Q6H PRN PRN Reason: Nausea And Vomiting Sodium Chloride (Sodium Chloride Flush Syringe 10 Ml) 10 ml IV BID [facility] Last Admin: 01/14/20 13:46 Dose: Not Given Documented by: Sodium Chloride (Sodium Chloride Flush Syringe 10 Ml) 10 ml IV PRN PRN PRN Reason: LINE FLUSH Review of Systems Constitutional: no fever, no chills, no sweats Ears, nose, mouth and throat: no tinnitis, no nasal congestion, no epistaxis, no bleeding gums, no dysphagia, no sore throat Cardiovascular: chest pain, no orthopnea, no palpitations, no edema, no syncope, no lightheadedness, no shortness of breath, no dyspnea on exertion, no claudication Respiratory: no cough, no shortness of breath, no wheezing Gastrointestinal: nausea, no abdominal pain, no vomiting, no diarrhea, no constipation Genitourinary Male: no dysuria, no flank pain Musculoskeletal: no neck stiffness, no neck pain, no muscle weakness, no muscle cramps Integumentary: no rash, no wounds Neurological: numbness, tingling, headaches, motor disturbance, no head injury, no weakness, no seizures, no syncope, no vertigo, no change in mentation Endocrine: no cold intolerance, no heat intolerance Hematologic/Lymphatic: no easy bruising, no easy bleeding Allergic/Immunologic: no urticaria Physical Examination Last Vital Signs Temp 98.0 F 01/14/20 17:01 Pulse 88 01/14/20 17:01 Resp 18 01/14/20 17:01 BP 158/79 01/14/20 17:01 Pulse Ox 95 01/14/20 17:01 General appearance: no acute distress HEENT: Positive: EOMI, Normocephaly Neck: Positive: neck supple, trachea midline. Negative: JVD/HJR Cardiac: Positive: Reg Rate and Rhythm, S1/S2 Lungs: Positive: clear to auscultation (bilaterally) Neuro: Positive: Grossly Intact Abdomen: Positive: Soft, Active Bowel Sounds. Negative: Tender Skin: Negative: Rash, Wound Musculoskeletal: No Pain, Normal Range of Motion Extremities: Present: upper extr. pulses, lower extr. pulses. Absent: edema Results 01/14/20 04:35 01/14/20 04:35 Coagulation 01/14/20 Range/Units 04:35 PT 13.4 (12.2-14.9) Sec. INR 1.01 (0.87-1.13) Lipids 01/14/20 Range/Units 04:35 Triglycerides 95 (2-149) mg/dL Cholesterol 159 (50-199) mg/dL HDL Cholesterol 38 L (40-59) mg/dL Cholesterol/HDL Ratio 4.18 % CBC 01/13/20 01/13/20 01/14/20 Range/Units 17:41 23:51 04:35 WBC 7.4 7.4 7.6 (4.5-11.0) K/mm3 RBC 4.88 4.68 5.09 H (3.65-5.03) M/mm3 Hgb 15.9 H 15.1 16.4 H (11.8-15.2) gm/dl Hct 46.4 H 44.6 48.0 H (35.5-45.6) % Plt Count 195 201 197 (140-440) K/mm3 Lymph # 1.0 L 1.9 1.6 (1.2-5.4) K/mm3 [place] # 0.5 0.7 0.8 (0.0-0.8) K/mm3 Eos # 0.0 0.0 0.1 (0.0-0.4) K/mm3 Baso # 0.0 0.0 0.0 (0.0-0.1) K/mm3 Comprehensive Metabolic Panel 01/13/20 01/13/20 01/14/20 Range/Units 17:41 23:51 04:35 Sodium 139 138 140 (137-145) mmol/L Potassium 4.4 4.0 3.9 (3.6-5.0) mmol/L Chloride 98.0 99.0 101.5 (98-107) mmol/L Carbon Dioxide 24 25 27 (22-30) mmol/L BUN 13 12 12 (9-20) mg/dL Creatinine 1.0 1.0 1.0 (0.8-1.5) mg/dL Glucose 157 H 99 96 (75-100) mg/dL Calcium 9.8 9.3 9.6 (8.4-10.2) mg/dL - Imaging and Cardiology Echo: report reviewed (01/13/2020: EF 55-60%, impaired relaxation) EKG: report reviewed, image reviewed - EKG Interpretation EKG: no acute changes EKG interpretations - Telemetry EKG Rhythm: Sinus Rhythm - EKG Sinus rhythms and dysrhythmias: sinus rhythm Chamber hypertrophy or enlargement: left atrial enlargement Repolarization changes or abnormalities: nonspecific abnormality, ST segment, and/or T wave Assessment and Plan Echo findings noted - 01/13/2020: EF 55-60%, impaired relaxation. Stress test 01/14/2020 - negative for ischemia. Neuro recs noted. Cont ASA and statin. Cont PRN IV Hydralazine. Currently stable cardiac status. Pt may be discharged from a Cardiology standpoint. Recommend f/u in our office within 1-2 weeks ([phone]). Pt seen in conjunction with Dr. Hale, who agrees with the assessment and plan of care. - Patient Problems (1) Chest pain Current Visit: Yes Status: Acute (2) CVA (cerebral vascular accident) Current Visit: Yes Status: Acute (3) HTN (hypertension) Current Visit: Yes Status: Chronic Qualifiers: Hypertension type: essential hypertension Qualified Code(s): I10 - Essential (primary) hypertension
[2020-01-15] MEDS: ACETAMINOPHEN 325 MG TAB PO PRN ×2 (00:55→17:42)
[2020-01-15] MEDS: HEPARIN 5,000 UNIT/1 ML VIAL SUB-Q SCH ×3 (05:29→21:22)
[2020-01-15] MEDS: hydrALAZINE 20 MG/1 ML INJ IV PRN (07:58)
[2020-01-15] MEDS: PANTOPRAZOLE 40 MG TAB PO SCH (10:32)
[2020-01-15] MEDS: ASPIRIN 325 MG TAB PO SCH (10:32)
[2020-01-15] MEDS: NIFEdipine XL 60 MG TAB PO SCH ×2 (10:32→21:22)
--- NOTE | 2020-01-15 11:56 | Progress Note ---
Assessment and Plan Assessment and plan: Acute CVA. 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 Neurology consultation. Continue aspirin and add Lipitor. Chest pain. Continue chest pain pathway. Cardiology consultation Hypertension. Continue antihypertensive medications. DVT prophylaxis. 01/15/2020. Echo findings from 01/13/2020 revealed EF of 55 to 60% with impaired relaxation. Stress test completed on 01/14/2020 is negative for ischemia. Continue aspirin and statin per neurology recommendations. Permissive hypertension per neurology recommendations. Start Procardia 60 mg twice daily today. Await physical therapy recommendations for discharge planning. History Interval history: No new issues overnight. Patient craving a cigarette. I offered nicotine patch and patient initially refused and wanted to sign out AMA. However, patient now convinced on staying. Hospitalist Physical - Constitutional Vitals: Temp Pulse Resp BP Pulse Ox 98.5 F 84 18 170/97 93 01/15/20 07:52 01/15/20 07:52 01/15/20 07:52 01/15/20 09:57 01/15/20 07:52 General appearance: Present: no acute distress - EENT Eyes: Present: PERRL, EOM intact ENT: hearing intact, clear oral mucosa, dentition normal - Neck Neck: Present: supple, normal ROM - Respiratory Respiratory effort: normal Respiratory: bilateral: CTA - Cardiovascular Rhythm: regular Heart Sounds: Present: S1 & S2. Absent: gallop, rub - Extremities Extremities: no ischemia, No edema, Full ROM - Abdominal General gastrointestinal: soft, non-tender, non-distended, normal bowel sounds - Integumentary Integumentary: Present: clear, warm, dry - Neurologic Neurologic: CNII-XII intact, moves all extremities HEART Score - HEART Score Troponin: Troponin T < 0.010 ng/mL (0.00-0.029) 01/14/20 04:35 Results - Labs CBC & Chem 7: 01/14/20 04:35 01/14/20 04:35 Labs: Laboratory Last Values WBC 7.6 K/mm3 (4.5-11.0) 01/14/20 04:35 RBC 5.09 M/mm3 (3.65-5.03) H 01/14/20 04:35 Hgb 16.4 gm/dl (11.8-15.2) H 01/14/20 04:35 Hct 48.0 % (35.5-45.6) H 01/14/20 04:35 MCV 94 fl (84-94) 01/14/20 04:35 MCH 32 pg (28-32) 01/14/20 04:35 MCHC 34 % (32-34) 01/14/20 04:35 RDW 13.5 % (13.2-15.2) 01/14/20 04:35 Plt Count 197 K/mm3 (140-440) 01/14/20 04:35 Lymph % (Auto) 21.8 % (13.4-35.0) 01/14/20 04:35 [place] % (Auto) 10.5 % (0.0-7.3) H 01/14/20 04:35 Eos % (Auto) 0.7 % (0.0-4.3) 01/14/20 04:35 Baso % (Auto) 0.3 % (0.0-1.8) 01/14/20 04:35 Lymph # 1.6 K/mm3 (1.2-5.4) 01/14/20 04:35 [place] # 0.8 K/mm3 (0.0-0.8) 01/14/20 04:35 Eos # 0.1 K/mm3 (0.0-0.4) 01/14/20 04:35 Baso # 0.0 K/mm3 (0.0-0.1) 01/14/20 04:35 Seg Neutrophils % 66.7 % (40.0-70.0) 01/14/20 04:35 Seg Neutrophils # 5.1 K/mm3 (1.8-7.7) 01/14/20 04:35 PT 13.4 Sec. (12.2-14.9) 01/14/20 04:35 INR 1.01 (0.87-1.13) 01/14/20 04:35 Sodium 140 mmol/L (137-145) 01/14/20 04:35 Potassium 3.9 mmol/L (3.6-5.0) 01/14/20 04:35 Chloride 101.5 mmol/L (98-107) 01/14/20 04:35 Carbon Dioxide 27 mmol/L (22-30) 01/14/20 04:35 Anion Gap 15 mmol/L 01/14/20 04:35 BUN 12 mg/dL (9-20) 01/14/20 04:35 Creatinine 1.0 mg/dL (0.8-1.5) 01/14/20 04:35 Estimated GFR > 60 ml/min 01/14/20 04:35 BUN/Creatinine Ratio 12 % 01/14/20 04:35 Glucose 96 mg/dL (75-100) 01/14/20 04:35 Calcium 9.6 mg/dL (8.4-10.2) 01/14/20 04:35 Magnesium 2.00 mg/dL (1.7-2.3) 01/13/20 17:41 Total Creatine Kinase 132 units/L (55-170) 01/13/20 17:41 Troponin T < 0.010 ng/mL (0.00-0.029) 01/14/20 04:35 Triglycerides 95 mg/dL (2-149) 01/14/20 04:35 Cholesterol 159 mg/dL (50-199) 01/14/20 04:35 LDL Cholesterol Direct 109 mg/dL (50-130) 01/14/20 04:35 HDL Cholesterol 38 mg/dL (40-59) L 01/14/20 04:35 Cholesterol/HDL Ratio 4.18 % 01/14/20 04:35 Urine Color Yellow (Yellow) 01/13/20 Unknown Urine Turbidity Clear (Clear) 01/13/20 Unknown Urine pH 6.0 (5.0-7.0) 01/13/20 Unknown Ur Specific [place] 1.044 (1.003-1.030) H 01/13/20 Unknown Urine Protein <15 mg/dl mg/dL (Negative) 01/13/20 Unknown Urine Glucose (UA) 50 mg/dL (Negative) 01/13/20 Unknown Urine Ketones Neg mg/dL (Negative) 01/13/20 Unknown Urine Blood Sm (Negative) 01/13/20 Unknown Urine Nitrite Neg (Negative) 01/13/20 Unknown Urine Bilirubin Neg (Negative) 01/13/20 Unknown Urine Urobilinogen 2.0 mg/dL (<2.0) 01/13/20 Unknown Ur Leukocyte Esterase Neg (Negative) 01/13/20 Unknown Urine WBC (Auto) 4.0 /HPF (0.0-6.0) 01/13/20 Unknown Urine RBC (Auto) 4.0 /HPF (0.0-6.0) 01/13/20 Unknown Urine Bacteria (Auto) 1+ /HPF (Negative) 01/13/20 Unknown Urine Mucus 1+ /HPF 01/13/20 Unknown Salicylates < 0.3 mg/dL (2.8-20.0) L 01/13/20 17:41 Urine Opiates Screen Presumptive negative 01/13/20 Unknown Urine Methadone Screen Presumptive negative 01/13/20 Unknown Acetaminophen < 5.0 ug/mL (10.0-30.0) L 01/13/20 17:41 Ur Barbiturates Screen Presumptive negative 01/13/20 Unknown Ur Phencyclidine Scrn Presumptive negative 01/13/20 Unknown Ur Amphetamines Screen Presumptive negative 01/13/20 Unknown U Benzodiazepines Scrn Presumptive negative 01/13/20 Unknown Urine Cocaine Screen Presumptive negative 01/13/20 Unknown U Marijuana (THC) Screen Presumptive negative 01/13/20 Unknown Drugs of Abuse Note Disclamer 01/13/20 Unknown Plasma/Serum Alcohol < 0.01 % (0-0.07) 01/13/20 17:41 - Diagnostic Impressions Diagnostic Impressions: Echocardiogram 01/13/20 23:23 Transthoracic Echocardiogram Indication: Stroke BP: 146/76 HR: 83 Conclusions *Global left ventricular systolic function is normal. *The estimated ejection fraction is 55-60%. *Abnormal left ventricular diastolic filling is observed, consistent with impaired relaxation. *No atrial septal defected is demonstrated by agitated saline contrast. *There is no evidence of aortic regurgitation. *There is no evidence of mitral regurgitation. *There is physiological tricuspid regurgitation. *The right ventricular systolic pressure is calculated at 12 mmHg. *There is no pericardial effusion. Findings Left Ventricle: The left ventricular chamber size is normal. There is no left ventricular hypertrophy. Global left ventricular wall motion and contractility are within normal limits. Global left ventricular systolic function is normal. The estimated ejection fraction is 55-60%. Abnormal left ventricular diastolic filling is observed, consistent with impaired relaxation. Left Atrium: The left atrial chamber size is normal. Right Ventricle: The right ventricular cavity size is normal. Right Atrium: The right atrial cavity size is normal. No atrial septal defected is demonstrated by agitated saline contrast. Aortic Valve: The aortic valve leaflets are mildly thickened. There is no evidence of aortic regurgitation. Mitral Valve: The mitral valve leaflets do not appear thickened. There is no evidence of mitral regurgitation. Tricuspid Valve: The tricuspid valve leaflets are normal. There is physiological tricuspid regurgitation. The right ventricular systolic pressure is calculated at 12 mmHg. Pulmonic Valve: The pulmonic valve appears normal. Pericardium: There is no pericardial effusion. Aorta: The aorta appears normal. Venous: The inferior vena cava appears normal. Contrast: Intravenous agitated saline contrast was used to assess intracardiac shunting. Measurements Chambers 2D Name Value Normal Range IVSd (2D) 1 cm (0.6 - 1.1) LVPWd (2D) 1.03 cm (0.6 - 1.1) LVIDd (2D) 4.22 cm (3.7 - 5.6) LVIDs (2D) 2.67 cm (2 - 3.8) LV FS (2D) 36.67 % - EF Teichholz (2D) 66.85 % - Ao root diameter (2D) 3.38 cm (2 - 3.7) Volumes/Mass Name Value Normal Range LA ESV SP 4CH (A/L) 32.28 ml - LA ESV SP 2CH (A/L) 29.69 ml - LA ESV BP (A/L) 31.15 ml - LA ESV BP (A/L) index 18.43 ml/m2 - LA ESV SP 4CH (MOD) 27.67 ml - LA ESV SP 2CH (MOD) 28.3 ml - LA ESV BP (MOD) 28.06 ml - LA ESV BP (MOD) index 16.6 ml/m2 - Diastolic/Systolic Function Name Value Normal Range MV E-wave Vmax 0.54 m/sec - MV deceleration time 235.81 msec - MV A-wave Vmax 0.75 m/sec - MV E:A ratio 0.72 ratio - Aortic Valve Name Value Normal Range AV Vmax 1.49 m/sec - AV VTI 25.42 cm - AV peak gradient 8.84 mmHg - AV mean gradient 3.79 mmHg - LVOT diameter 2.11 cm - LVOT Vmax 1.17 m/sec - LVOT VTI 19.65 cm - LVOT peak gradient 5.51 mmHg - LVOT mean gradient 2.38 mmHg - SV LVOT 68.62 ml - YULISA (continuity Vmax) 2.76 cm2 - YULISA (continuity VTI) 2.7 cm2 - Tricuspid Valve Name Value Normal Range TR Vmax 1.49 m/sec - TR peak gradient 9 mmHg - RAP 3 mmHg - RVSP 12 mmHg - IVC diameter 1.53 cm (1.2 - 2.3) Pulmonic Valve/Qp:Qs Name Value Normal Range PV Vmax 0.78 m/sec - PV peak gradient 2.46 mmHg - PV acceleration time 117.98 msec - [place]/IV: Voiding Method Urinal IV Catheter Type [Right Peripheral IV Antecubital] Active Medications - Current Medications Current Medications: Generic Name Dose Route Start Last Admin Trade Name Freq PRN Reason Stop Dose Admin Acetaminophen 650 mg 01/13/20 23:05 01/15/20 00:55 Tylenol PO 650 mg Q4H PRN Administration Pain, Mild (1-3) Aspirin 325 mg 01/14/20 10:00 01/15/20 10:32 Aspirin PO 325 mg QDAY PRANEETH Administration Atorvastatin Calcium 40 mg 01/14/20 22:00 01/14/20 21:40 Lipitor PO 40 mg QHS PRANEETH Administration Bisacodyl 10 mg 01/13/20 23:05 Dulcolax VA QDAY PRN Constipation Heparin Sodium (Porcine) 5,000 unit 01/14/20 06:00 01/15/20 05:29 Heparin SUB-Q 5,000 unit Q8HR PRANEETH Administration Hydralazine HCl 10 mg 01/14/20 06:00 01/15/20 07:58 Apresoline IV 10 mg Q6H PRN Administration Hypertension Magnesium Hydroxide 30 ml 01/13/20 23:05 Milk Of Magnesia PO Q4H PRN Constipation Metoclopramide HCl 10 mg 01/13/20 23:05 Reglan PO Q6H PRN Nausea And Vomiting Morphine Sulfate 2 mg 01/13/20 23:05 01/14/20 07:14 Morphine IV 2 mg Q5MIN PRN Administration Chest Pain unrelieved by NTG Nicotine 14 mg 01/16/20 10:00 Habitrol TD QDAY PRANEETH Nifedipine 60 mg 01/15/20 11:00 01/15/20 10:32 Procardia Xl PO 60 mg Q12HR PRANEETH Administration Nitroglycerin 0.4 mg 01/13/20 23:05 Nitrostat SL Q5M PRN Chest Pain Ondansetron HCl 4 mg 01/13/20 23:05 Zofran IV Q8H PRN Nausea And Vomiting Pantoprazole Sodium 40 mg 01/15/20 11:00 01/15/20 10:32 Protonix PO 40 mg QDAY PRANEETH Administration Promethazine HCl 25 mg 01/13/20 23:05 Phenergan VA Q6H PRN Nausea And Vomiting Sodium Chloride 10 ml 01/14/20 10:00 01/15/20 10:02 Sodium Chloride Flush Syringe 10 Ml IV 10 ml BID PRANEETH Administration Sodium Chloride 10 ml 01/13/20 23:05 Sodium Chloride Flush Syringe 10 Ml IV PRN PRN LINE FLUSH Nutrition/Malnutrition Assess - Dietary Evaluation Nutrition/Malnutrition Findings: Nutrition Notes Start: 01/14/20 12:48 Freq: Status: Active Protocol: Document 01/14/20 12:48 LM (Rec: 01/14/20 12:50 LM [id number]) Nutrition Notes Need for Assessment generated from: MD Order Initial or Follow up Brief Note Current Diagnosis Hypertension,Stroke Other Pertinent Diagnosis chest pain Current Diet NPO Height 5 ft 4 in Weight 64.5 kg [place] Body Weight (kg) 59.09 BMI 24.4 Weight Status Appropriate Subjective/Other Information MD consult for diet education. pt not in room. Pt getting stress test. Nutrition Intervention Follow-Up By: 01/18/20 Additional Comments F/U for dier education and diet advancement
[2020-01-15] MEDS: NICOTINE 14 MG/24 HR PATCH TD SCH (12:26)
[2020-01-15] MEDS: ONDANSETRON 4 MG/2 ML INJ IV PRN (13:36)
--- NOTE | 2020-01-15 18:15 | XRay Report ---
CHEST 1 VIEW INDICATION / CLINICAL INFORMATION: temp. COMPARISON: 12/24/2019 FINDINGS: SUPPORT DEVICES: None. HEART / MEDIASTINUM: No significant abnormality. LUNGS / PLEURA: There is slight increase retrocardiac opacity that is developed since comparison stud y. This may represent atelectasis but developing airspace disease may also have this appearance. No p neumothorax. ADDITIONAL FINDINGS: No significant additional findings. IMPRESSION: 1. Atelectasis versus developing airspace disease in the left lower lobe. Signer Name: Alex Pearl MD Signed: 01/15/2020 6:10 PM Workstation Name: [id number]
[2020-01-16] MEDS: HEPARIN 5,000 UNIT/1 ML VIAL SUB-Q SCH ×3 (05:35→21:09)
--- NOTE | 2020-01-16 08:56 | Progress Note ---
Assessment and Plan Assessment and plan: Acute CVA. 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 Neurology consultation. Continue aspirin and add Lipitor. Chest pain. Continue chest pain pathway. Cardiology consultation Hypertension. Continue antihypertensive medications. DVT prophylaxis. 01/15/2020. Echo findings from 01/13/2020 revealed EF of 55 to 60% with impaired relaxation. Stress test completed on 01/14/2020 is negative for ischemia. Continue aspirin and statin per neurology recommendations. Permissive hypertension per neurology recommendations. Start Procardia 60 mg twice daily today. Await physical therapy recommendations for discharge planning. 01/16/2020. Blood pressure much better controlled with Procardia. Continue aspirin and statin. With regards to the fever, patient with chest x-ray that revealed atelectasis versus developing airspace disease in the left lower lobe. We will start empiric antibiotics. Patient also will have COVID-19 rule out and placed on isolation precautions for now. Consider ID consultation. Await physical therapy recommendations for discharge planning. History Interval history: No new issues overnight. Patient with a fever yesterday. No other issues. Hospitalist Physical - Constitutional Vitals: Temp Pulse Resp BP Pulse Ox 98.2 F 94 H 18 129/78 92 01/16/20 08:03 01/16/20 08:03 01/16/20 08:03 01/16/20 08:03 01/16/20 08:03 General appearance: Present: no acute distress - EENT Eyes: Present: PERRL, EOM intact ENT: hearing intact, clear oral mucosa, dentition normal - Neck Neck: Present: supple, normal ROM - Respiratory Respiratory effort: normal Respiratory: bilateral: CTA - Cardiovascular Rhythm: regular Heart Sounds: Present: S1 & S2. Absent: gallop, rub - Extremities Extremities: no ischemia, No edema, Full ROM - Abdominal General gastrointestinal: soft, non-tender, non-distended, normal bowel sounds - Integumentary Integumentary: Present: clear, warm, dry - Neurologic Neurologic: CNII-XII intact, moves all extremities HEART Score - HEART Score Troponin: Troponin T < 0.010 ng/mL (0.00-0.029) 01/14/20 04:35 Results - Labs CBC & Chem 7: 01/14/20 04:35 01/14/20 04:35 Labs: Laboratory Last Values WBC 7.6 K/mm3 (4.5-11.0) 01/14/20 04:35 RBC 5.09 M/mm3 (3.65-5.03) H 01/14/20 04:35 Hgb 16.4 gm/dl (11.8-15.2) H 01/14/20 04:35 Hct 48.0 % (35.5-45.6) H 01/14/20 04:35 MCV 94 fl (84-94) 01/14/20 04:35 MCH 32 pg (28-32) 01/14/20 04:35 MCHC 34 % (32-34) 01/14/20 04:35 RDW 13.5 % (13.2-15.2) 01/14/20 04:35 Plt Count 197 K/mm3 (140-440) 01/14/20 04:35 Lymph % (Auto) 21.8 % (13.4-35.0) 01/14/20 04:35 Ector % (Auto) 10.5 % (0.0-7.3) H 01/14/20 04:35 Eos % (Auto) 0.7 % (0.0-4.3) 01/14/20 04:35 Baso % (Auto) 0.3 % (0.0-1.8) 01/14/20 04:35 Lymph # 1.6 K/mm3 (1.2-5.4) 01/14/20 04:35 Ector # 0.8 K/mm3 (0.0-0.8) 01/14/20 04:35 Eos # 0.1 K/mm3 (0.0-0.4) 01/14/20 04:35 Baso # 0.0 K/mm3 (0.0-0.1) 01/14/20 04:35 Seg Neutrophils % 66.7 % (40.0-70.0) 01/14/20 04:35 Seg Neutrophils # 5.1 K/mm3 (1.8-7.7) 01/14/20 04:35 PT 13.4 Sec. (12.2-14.9) 01/14/20 04:35 INR 1.01 (0.87-1.13) 01/14/20 04:35 Sodium 140 mmol/L (137-145) 01/14/20 04:35 Potassium 3.9 mmol/L (3.6-5.0) 01/14/20 04:35 Chloride 101.5 mmol/L (98-107) 01/14/20 04:35 Carbon Dioxide 27 mmol/L (22-30) 01/14/20 04:35 Anion Gap 15 mmol/L 01/14/20 04:35 BUN 12 mg/dL (9-20) 01/14/20 04:35 Creatinine 1.0 mg/dL (0.8-1.5) 01/14/20 04:35 Estimated GFR > 60 ml/min 01/14/20 04:35 BUN/Creatinine Ratio 12 % 01/14/20 04:35 Glucose 96 mg/dL (75-100) 01/14/20 04:35 Calcium 9.6 mg/dL (8.4-10.2) 01/14/20 04:35 Magnesium 2.00 mg/dL (1.7-2.3) 01/13/20 17:41 Total Creatine Kinase 132 units/L (55-170) 01/13/20 17:41 Troponin T < 0.010 ng/mL (0.00-0.029) 01/14/20 04:35 Triglycerides 95 mg/dL (2-149) 01/14/20 04:35 Cholesterol 159 mg/dL (50-199) 01/14/20 04:35 LDL Cholesterol Direct 109 mg/dL (50-130) 01/14/20 04:35 HDL Cholesterol 38 mg/dL (40-59) L 01/14/20 04:35 Cholesterol/HDL Ratio 4.18 % 01/14/20 04:35 Urine Color Yellow (Yellow) 01/13/20 Unknown Urine Turbidity Clear (Clear) 01/13/20 Unknown Urine pH 6.0 (5.0-7.0) 01/13/20 Unknown Ur Specific Sod 1.044 (1.003-1.030) H 01/13/20 Unknown Urine Protein <15 mg/dl mg/dL (Negative) 01/13/20 Unknown Urine Glucose (UA) 50 mg/dL (Negative) 01/13/20 Unknown Urine Ketones Neg mg/dL (Negative) 01/13/20 Unknown Urine Blood Sm (Negative) 01/13/20 Unknown Urine Nitrite Neg (Negative) 01/13/20 Unknown Urine Bilirubin Neg (Negative) 01/13/20 Unknown Urine Urobilinogen 2.0 mg/dL (<2.0) 01/13/20 Unknown Ur Leukocyte Esterase Neg (Negative) 01/13/20 Unknown Urine WBC (Auto) 4.0 /HPF (0.0-6.0) 01/13/20 Unknown Urine RBC (Auto) 4.0 /HPF (0.0-6.0) 01/13/20 Unknown Urine Bacteria (Auto) 1+ /HPF (Negative) 01/13/20 Unknown Urine Mucus 1+ /HPF 01/13/20 Unknown Salicylates < 0.3 mg/dL (2.8-20.0) L 01/13/20 17:41 Urine Opiates Screen Presumptive negative 01/13/20 Unknown Urine Methadone Screen Presumptive negative 01/13/20 Unknown Acetaminophen < 5.0 ug/mL (10.0-30.0) L 01/13/20 17:41 Ur Barbiturates Screen Presumptive negative 01/13/20 Unknown Ur Phencyclidine Scrn Presumptive negative 01/13/20 Unknown Ur Amphetamines Screen Presumptive negative 01/13/20 Unknown U Benzodiazepines Scrn Presumptive negative 01/13/20 Unknown Urine Cocaine Screen Presumptive negative 01/13/20 Unknown U Marijuana (THC) Screen Presumptive negative 01/13/20 Unknown Drugs of Abuse Note Disclamer 01/13/20 Unknown Plasma/Serum Alcohol < 0.01 % (0-0.07) 01/13/20 17:41 - Diagnostic Impressions Diagnostic Impressions: Echocardiogram 01/13/20 23:23 Transthoracic Echocardiogram Indication: Stroke BP: 146/76 HR: 83 Conclusions *Global left ventricular systolic function is normal. *The estimated ejection fraction is 55-60%. *Abnormal left ventricular diastolic filling is observed, consistent with impaired relaxation. *No atrial septal defected is demonstrated by agitated saline contrast. *There is no evidence of aortic regurgitation. *There is no evidence of mitral regurgitation. *There is physiological tricuspid regurgitation. *The right ventricular systolic pressure is calculated at 12 mmHg. *There is no pericardial effusion. Findings Left Ventricle: The left ventricular chamber size is normal. There is no left ventricular hypertrophy. Global left ventricular wall motion and contractility are within normal limits. Global left ventricular systolic function is normal. The estimated ejection fraction is 55-60%. Abnormal left ventricular diastolic filling is observed, consistent with impaired relaxation. Left Atrium: The left atrial chamber size is normal. Right Ventricle: The right ventricular cavity size is normal. Right Atrium: The right atrial cavity size is normal. No atrial septal defected is demonstrated by agitated saline contrast. Aortic Valve: The aortic valve leaflets are mildly thickened. There is no evidence of aortic regurgitation. Mitral Valve: The mitral valve leaflets do not appear thickened. There is no evidence of mitral regurgitation. Tricuspid Valve: The tricuspid valve leaflets are normal. There is physiological tricuspid regurgitation. The right ventricular systolic pressure is calculated at 12 mmHg. Pulmonic Valve: The pulmonic valve appears normal. Pericardium: There is no pericardial effusion. Aorta: The aorta appears normal. Venous: The inferior vena cava appears normal. Contrast: Intravenous agitated saline contrast was used to assess intracardiac shunting. Measurements Chambers 2D Name Value Normal Range IVSd (2D) 1 cm (0.6 - 1.1) LVPWd (2D) 1.03 cm (0.6 - 1.1) LVIDd (2D) 4.22 cm (3.7 - 5.6) LVIDs (2D) 2.67 cm (2 - 3.8) LV FS (2D) 36.67 % - EF Teichholz (2D) 66.85 % - Ao root diameter (2D) 3.38 cm (2 - 3.7) Volumes/Mass Name Value Normal Range LA ESV SP 4CH (A/L) 32.28 ml - LA ESV SP 2CH (A/L) 29.69 ml - LA ESV BP (A/L) 31.15 ml - LA ESV BP (A/L) index 18.43 ml/m2 - LA ESV SP 4CH (MOD) 27.67 ml - LA ESV SP 2CH (MOD) 28.3 ml - LA ESV BP (MOD) 28.06 ml - LA ESV BP (MOD) index 16.6 ml/m2 - Diastolic/Systolic Function Name Value Normal Range MV E-wave Vmax 0.54 m/sec - MV deceleration time 235.81 msec - MV A-wave Vmax 0.75 m/sec - MV E:A ratio 0.72 ratio - Aortic Valve Name Value Normal Range AV Vmax 1.49 m/sec - AV VTI 25.42 cm - AV peak gradient 8.84 mmHg - AV mean gradient 3.79 mmHg - LVOT diameter 2.11 cm - LVOT Vmax 1.17 m/sec - LVOT VTI 19.65 cm - LVOT peak gradient 5.51 mmHg - LVOT mean gradient 2.38 mmHg - SV LVOT 68.62 ml - UYLISA (continuity Vmax) 2.76 cm2 - YULISA (continuity VTI) 2.7 cm2 - Tricuspid Valve Name Value Normal Range TR Vmax 1.49 m/sec - TR peak gradient 9 mmHg - RAP 3 mmHg - RVSP 12 mmHg - IVC diameter 1.53 cm (1.2 - 2.3) Pulmonic Valve/Qp:Qs Name Value Normal Range PV Vmax 0.78 m/sec - PV peak gradient 2.46 mmHg - PV acceleration time 117.98 msec - Dumas/IV: Voiding Method Urinal IV Catheter Type [Left Wrist] INT / Saline Lock IV Catheter Type [Right Peripheral IV Antecubital] Active Medications - Current Medications Current Medications: Generic Name Dose Route Start Last Admin Trade Name Freq PRN Reason Stop Dose Admin Acetaminophen 650 mg 01/13/20 23:05 01/15/20 17:42 Tylenol PO 650 mg Q4H PRN Administration Pain, Mild (1-3) Aspirin 325 mg 01/14/20 10:00 01/15/20 10:32 Aspirin PO 325 mg QDAY PRANEETH Administration Atorvastatin Calcium 40 mg 01/14/20 22:00 01/15/20 21:22 Lipitor PO 40 mg QHS PRANEETH Administration Bisacodyl 10 mg 01/13/20 23:05 Dulcolax SD QDAY PRN Constipation Heparin Sodium (Porcine) 5,000 unit 01/14/20 06:00 01/16/20 05:35 Heparin SUB-Q 5,000 unit Q8HR PRANEETH Administration Hydralazine HCl 10 mg 01/14/20 06:00 01/15/20 07:58 Apresoline IV 10 mg Q6H PRN Administration Hypertension Magnesium Hydroxide 30 ml 01/13/20 23:05 Milk Of Magnesia PO Q4H PRN Constipation Metoclopramide HCl 10 mg 01/13/20 23:05 Reglan PO Q6H PRN Nausea And Vomiting Morphine Sulfate 2 mg 01/13/20 23:05 01/14/20 07:14 Morphine IV 2 mg Q5MIN PRN Administration Chest Pain unrelieved by NTG Nicotine 14 mg 01/15/20 12:00 01/15/20 12:26 Habitrol TD 14 mg QDAY PRANEETH Administration Nifedipine 60 mg 01/15/20 11:00 01/15/20 21:22 Procardia Xl PO 60 mg Q12HR PRANEETH Administration Nitroglycerin 0.4 mg 01/13/20 23:05 Nitrostat SL Q5M PRN Chest Pain Ondansetron HCl 4 mg 01/13/20 23:05 01/15/20 13:36 Zofran IV 4 mg Q8H PRN Administration Nausea And Vomiting Pantoprazole Sodium 40 mg 01/15/20 11:00 01/15/20 10:32 Protonix PO 40 mg QDAY PRANEETH Administration Promethazine HCl 25 mg 01/13/20 23:05 Phenergan SD Q6H PRN Nausea And Vomiting Sodium Chloride 10 ml 01/14/20 10:00 01/15/20 21:22 Sodium Chloride Flush Syringe 10 Ml IV 10 ml BID PRANEETH Administration Sodium Chloride 10 ml 01/13/20 23:05 Sodium Chloride Flush Syringe 10 Ml IV PRN PRN LINE FLUSH Nutrition/Malnutrition Assess - Dietary Evaluation Nutrition/Malnutrition Findings: Nutrition Notes Start: 01/14/20 12:48 Freq: Status: Active Protocol: Document 01/14/20 12:48 LM (Rec: 01/14/20 12:50 LM [id number]) Nutrition Notes Need for Assessment generated from: MD Order Initial or Follow up Brief Note Current Diagnosis Hypertension,Stroke Other Pertinent Diagnosis chest pain Current Diet NPO Height 5 ft 4 in Weight 64.5 kg [place] Body Weight (kg) 59.09 BMI 24.4 Weight Status Appropriate Subjective/Other Information MD consult for diet education. pt not in room. Pt getting stress test. Nutrition Intervention Follow-Up By: 01/18/20 Additional Comments F/U for dier education and diet advancement
[2020-01-16] MEDS: NIFEdipine XL 60 MG TAB PO SCH ×2 (09:32→21:08)
[2020-01-16] MEDS: PANTOPRAZOLE 40 MG TAB PO SCH (09:32)
[2020-01-16] MEDS: ASPIRIN 325 MG TAB PO SCH (09:32)
[2020-01-16] MEDS: NICOTINE 14 MG/24 HR PATCH TD SCH (09:32)
[2020-01-16] MEDS: AZITHROMYCIN 500 MG in SODIUM CHLORIDE 0.9% 250ML 250 ML IV SCH (09:33)
[2020-01-16 09:34] LABS: C-Reactive Protein 1.6 mg/dL (0.00-1.30)
[2020-01-16] MEDS: cefTRIAXone/NS 2 GM/100 ML 2 GM/100 ML BAG IV SCH (11:04)
[2020-01-16] MEDS: ACETAMINOPHEN 325 MG TAB PO PRN (23:49)
[2020-01-17 05:01] LABS: Basophils % (Auto) 0.1 % (0.0-1.8); Eosinophils % (Auto) 0.2 % (0.0-4.3); Hematocrit 42.9 % (35.5-45.6); Lymphocytes # (Auto) 1.3 K/mm3 (1.2-5.4); Lymphocytes % (Auto) 14.4 % (13.4-35.0); Mean Corpuscular HGB Conc 35 % (32-34); Mean Corpuscular Volume 95 fl (84-94); Monocytes # (Auto) 0.8 K/mm3 (0.0-0.8); Monocytes % (Auto) 8.6 % (0.0-7.3); Platelet Count 164 K/mm3 (140-440); Red Blood Count 4.53 M/mm3 (3.65-5.03); Red Cell Distribution Width 13.3 % (13.2-15.2)
[2020-01-17 05:17] LABS: BUN/Creatinine Ratio 16; Blood Urea Nitrogen 18 mg/dL (9-20); Calcium 8.3 mg/dL (8.4-10.2)
[2020-01-17] MEDS: HEPARIN 5,000 UNIT/1 ML VIAL SUB-Q SCH ×3 (05:45→21:46)
--- NOTE | 2020-01-17 09:33 | Progress Note ---
Assessment and Plan Assessment and plan: Acute CVA. 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 Neurology consultation. Continue aspirin and add Lipitor. Aspiration pneumonia. Continue IV antibiotics. Chest pain. Continue chest pain pathway. Cardiology consultation Hypertension. Continue antihypertensive medications. DVT prophylaxis. 01/15/2020. Echo findings from 01/13/2020 revealed EF of 55 to 60% with impaired relaxation. Stress test completed on 01/14/2020 is negative for ischemia. Continue aspirin and statin per neurology recommendations. Permissive hypertension per neurology recommendations. Start Procardia 60 mg twice daily today. Await physical therapy recommendations for discharge planning. 01/16/2020. Blood pressure much better controlled with Procardia. Continue aspirin and statin. With regards to the fever, patient with chest x-ray that revealed atelectasis versus developing airspace disease in the left lower lobe. We will start empiric antibiotics. Patient also will have COVID-19 rule out and placed on isolation precautions for now. Consider ID consultation. Await physical therapy recommendations for discharge planning. 01/17/2020. Patient still with fevers. Patient follow-up chest x-ray revealed new left lower lobe infiltrate. Etiology probably aspiration pneumonia versus healthcare associated pneumonia. COVID-19 negative. Speech therapy evaluation revealed over signs and symptoms of aspiration with thin liquids and mixed consistency. Speech therapy recommends MBS. We will follow-up study today. Continue IV antibiotics. Consider ID consultation. Await physical therapy recommendations for discharge planning. History Interval history: No new issues overnight. Hospitalist Physical - Constitutional Vitals: Temp Pulse Resp BP Pulse Ox 97.0 F L 90 18 91/51 94 01/17/20 07:44 01/17/20 07:44 01/17/20 07:44 01/17/20 07:44 01/17/20 07:44 General appearance: Present: no acute distress - EENT Eyes: Present: PERRL, EOM intact ENT: hearing intact, clear oral mucosa, dentition normal - Neck Neck: Present: supple, normal ROM - Respiratory Respiratory effort: normal Respiratory: bilateral: CTA - Cardiovascular Rhythm: regular Heart Sounds: Present: S1 & S2. Absent: gallop, rub - Extremities Extremities: no ischemia, No edema, Full ROM - Abdominal General gastrointestinal: soft, non-tender, non-distended, normal bowel sounds - Integumentary Integumentary: Present: clear, warm, dry - Neurologic Neurologic: CNII-XII intact, moves all extremities HEART Score - HEART Score Troponin: Troponin T < 0.010 ng/mL (0.00-0.029) 01/14/20 04:35 Results - Labs CBC & Chem 7: 01/17/20 04:21 01/17/20 04:21 Labs: Laboratory Last Values WBC 8.9 K/mm3 (4.5-11.0) 01/17/20 04:21 RBC 4.53 M/mm3 (3.65-5.03) 01/17/20 04:21 Hgb 15.0 gm/dl (11.8-15.2) 01/17/20 04:21 Hct 42.9 % (35.5-45.6) 01/17/20 04:21 MCV 95 fl (84-94) H 01/17/20 04:21 MCH 33 pg (28-32) H 01/17/20 04:21 MCHC 35 % (32-34) H 01/17/20 04:21 RDW 13.3 % (13.2-15.2) 01/17/20 04:21 Plt Count 164 K/mm3 (140-440) 01/17/20 04:21 Lymph % (Auto) 14.4 % (13.4-35.0) 01/17/20 04:21 [place] % (Auto) 8.6 % (0.0-7.3) H 01/17/20 04:21 Eos % (Auto) 0.2 % (0.0-4.3) 01/17/20 04:21 Baso % (Auto) 0.1 % (0.0-1.8) 01/17/20 04:21 Lymph # 1.3 K/mm3 (1.2-5.4) 01/17/20 04:21 [place] # 0.8 K/mm3 (0.0-0.8) 01/17/20 04:21 Eos # 0.0 K/mm3 (0.0-0.4) 01/17/20 04:21 Baso # 0.0 K/mm3 (0.0-0.1) 01/17/20 04:21 Seg Neutrophils % 76.7 % (40.0-70.0) H 01/17/20 04:21 Seg Neutrophils # 6.8 K/mm3 (1.8-7.7) 01/17/20 04:21 PT 13.4 Sec. (12.2-14.9) 01/14/20 04:35 INR 1.01 (0.87-1.13) 01/14/20 04:35 D-Dimer 166.29 ng/mlDDU (0-234) 01/16/20 08:14 Sodium 135 mmol/L (137-145) L 01/17/20 04:21 Potassium 3.7 mmol/L (3.6-5.0) 01/17/20 04:21 Chloride 97.1 mmol/L (98-107) L 01/17/20 04:21 Carbon Dioxide 25 mmol/L (22-30) 01/17/20 04:21 Anion Gap 17 mmol/L 01/17/20 04:21 BUN 18 mg/dL (9-20) 01/17/20 04:21 Creatinine 1.1 mg/dL (0.8-1.5) 01/17/20 04:21 Estimated GFR > 60 ml/min 01/17/20 04:21 BUN/Creatinine Ratio 16 % 01/17/20 04:21 Glucose 126 mg/dL (75-100) H 01/17/20 04:21 Calcium 8.3 mg/dL (8.4-10.2) L 01/17/20 04:21 Magnesium 2.00 mg/dL (1.7-2.3) 01/13/20 17:41 Ferritin 718.0 ng/mL (13.0-400.0) H 01/16/20 08:14 Lactate Dehydrogenase 155 units/L (91-180) 01/16/20 08:14 Total Creatine Kinase 132 units/L (55-170) 01/13/20 17:41 Troponin T < 0.010 ng/mL (0.00-0.029) 01/14/20 04:35 C-Reactive Protein 1.60 mg/dL (0.00-1.30) H 01/16/20 08:14 Triglycerides 95 mg/dL (2-149) 01/14/20 04:35 Cholesterol 159 mg/dL (50-199) 01/14/20 04:35 LDL Cholesterol Direct 109 mg/dL (50-130) 01/14/20 04:35 HDL Cholesterol 38 mg/dL (40-59) L 01/14/20 04:35 Cholesterol/HDL Ratio 4.18 % 01/14/20 04:35 Procalcitonin 0.20 ng/mL (<0.15) 01/16/20 08:14 Urine Color Yellow (Yellow) 01/13/20 Unknown Urine Turbidity Clear (Clear) 01/13/20 Unknown Urine pH 6.0 (5.0-7.0) 01/13/20 Unknown Ur Specific [place] 1.044 (1.003-1.030) H 01/13/20 Unknown Urine Protein <15 mg/dl mg/dL (Negative) 01/13/20 Unknown Urine Glucose (UA) 50 mg/dL (Negative) 01/13/20 Unknown Urine Ketones Neg mg/dL (Negative) 01/13/20 Unknown Urine Blood Sm (Negative) 01/13/20 Unknown Urine Nitrite Neg (Negative) 01/13/20 Unknown Urine Bilirubin Neg (Negative) 01/13/20 Unknown Urine Urobilinogen 2.0 mg/dL (<2.0) 01/13/20 Unknown Ur Leukocyte Esterase Neg (Negative) 01/13/20 Unknown Urine WBC (Auto) 4.0 /HPF (0.0-6.0) 01/13/20 Unknown Urine RBC (Auto) 4.0 /HPF (0.0-6.0) 01/13/20 Unknown Urine Bacteria (Auto) 1+ /HPF (Negative) 01/13/20 Unknown Urine Mucus 1+ /HPF 01/13/20 Unknown Salicylates < 0.3 mg/dL (2.8-20.0) L 01/13/20 17:41 Urine Opiates Screen Presumptive negative 01/13/20 Unknown Urine Methadone Screen Presumptive negative 01/13/20 Unknown Acetaminophen < 5.0 ug/mL (10.0-30.0) L 01/13/20 17:41 Ur Barbiturates Screen Presumptive negative 01/13/20 Unknown Ur Phencyclidine Scrn Presumptive negative 01/13/20 Unknown Ur Amphetamines Screen Presumptive negative 01/13/20 Unknown U Benzodiazepines Scrn Presumptive negative 01/13/20 Unknown Urine Cocaine Screen Presumptive negative 01/13/20 Unknown U Marijuana (THC) Screen Presumptive negative 01/13/20 Unknown Drugs of Abuse Note Disclamer 01/13/20 Unknown Plasma/Serum Alcohol < 0.01 % (0-0.07) 01/13/20 17:41 Coronavirus (PCR) Negative (Negative) 01/16/20 07:26 Microbiology: Microbiology 01/15/20 18:00 Urine,Clean Catch Urine Culture - Preliminary - Diagnostic Impressions Diagnostic Impressions: Echocardiogram 01/13/20 23:23 Transthoracic Echocardiogram Indication: Stroke BP: 146/76 HR: 83 Conclusions *Global left ventricular systolic function is normal. *The estimated ejection fraction is 55-60%. *Abnormal left ventricular diastolic filling is observed, consistent with impaired relaxation. *No atrial septal defected is demonstrated by agitated saline contrast. *There is no evidence of aortic regurgitation. *There is no evidence of mitral regurgitation. *There is physiological tricuspid regurgitation. *The right ventricular systolic pressure is calculated at 12 mmHg. *There is no pericardial effusion. Findings Left Ventricle: The left ventricular chamber size is normal. There is no left ventricular hypertrophy. Global left ventricular wall motion and contractility are within normal limits. Global left ventricular systolic function is normal. The estimated ejection fraction is 55-60%. Abnormal left ventricular diastolic filling is observed, consistent with impaired relaxation. Left Atrium: The left atrial chamber size is normal. Right Ventricle: The right ventricular cavity size is normal. Right Atrium: The right atrial cavity size is normal. No atrial septal defected is demonstrated by agitated saline contrast. Aortic Valve: The aortic valve leaflets are mildly thickened. There is no evidence of aortic regurgitation. Mitral Valve: The mitral valve leaflets do not appear thickened. There is no evidence of mitral regurgitation. Tricuspid Valve: The tricuspid valve leaflets are normal. There is physiological tricuspid regurgitation. The right ventricular systolic pressure is calculated at 12 mmHg. Pulmonic Valve: The pulmonic valve appears normal. Pericardium: There is no pericardial effusion. Aorta: The aorta appears normal. Venous: The inferior vena cava appears normal. Contrast: Intravenous agitated saline contrast was used to assess intracardiac shunting. Measurements Chambers 2D Name Value Normal Range IVSd (2D) 1 cm (0.6 - 1.1) LVPWd (2D) 1.03 cm (0.6 - 1.1) LVIDd (2D) 4.22 cm (3.7 - 5.6) LVIDs (2D) 2.67 cm (2 - 3.8) LV FS (2D) 36.67 % - EF Teichholz (2D) 66.85 % - Ao root diameter (2D) 3.38 cm (2 - 3.7) Volumes/Mass Name Value Normal Range LA ESV SP 4CH (A/L) 32.28 ml - LA ESV SP 2CH (A/L) 29.69 ml - LA ESV BP (A/L) 31.15 ml - LA ESV BP (A/L) index 18.43 ml/m2 - LA ESV SP 4CH (MOD) 27.67 ml - LA ESV SP 2CH (MOD) 28.3 ml - LA ESV BP (MOD) 28.06 ml - LA ESV BP (MOD) index 16.6 ml/m2 - Diastolic/Systolic Function Name Value Normal Range MV E-wave Vmax 0.54 m/sec - MV deceleration time 235.81 msec - MV A-wave Vmax 0.75 m/sec - MV E:A ratio 0.72 ratio - Aortic Valve Name Value Normal Range AV Vmax 1.49 m/sec - AV VTI 25.42 cm - AV peak gradient 8.84 mmHg - AV mean gradient 3.79 mmHg - LVOT diameter 2.11 cm - LVOT Vmax 1.17 m/sec - LVOT VTI 19.65 cm - LVOT peak gradient 5.51 mmHg - LVOT mean gradient 2.38 mmHg - SV LVOT 68.62 ml - YULISA (continuity Vmax) 2.76 cm2 - YULISA (continuity VTI) 2.7 cm2 - Tricuspid Valve Name Value Normal Range TR Vmax 1.49 m/sec - TR peak gradient 9 mmHg - RAP 3 mmHg - RVSP 12 mmHg - IVC diameter 1.53 cm (1.2 - 2.3) Pulmonic Valve/Qp:Qs Name Value Normal Range PV Vmax 0.78 m/sec - PV peak gradient 2.46 mmHg - PV acceleration time 117.98 msec - Dum[place]/IV: Voiding Method Urinal IV Catheter Type [Left Wrist] INT / Saline Lock IV Catheter Type [Right Peripheral IV Antecubital] Active Medications - Current Medications Current Medications: Generic Name Dose Route Start Last Admin Trade Name Freq PRN Reason Stop Dose Admin Acetaminophen 650 mg 01/13/20 23:05 01/16/20 23:49 Tylenol PO 650 mg Q4H PRN Administration Pain, Mild (1-3) Aspirin 325 mg 01/14/20 10:00 01/16/20 09:32 Aspirin PO 325 mg QDAY PRANEETH Administration Atorvastatin Calcium 40 mg 01/14/20 22:00 01/16/20 21:08 Lipitor PO 40 mg QHS PRANEETH Administration Bisacodyl 10 mg 01/13/20 23:05 Dulcolax [place] QDAY PRN Constipation Heparin Sodium (Porcine) 5,000 unit 01/14/20 06:00 01/17/20 05:45 Heparin SUB-Q 5,000 unit Q8HR PRANEETH Administration Hydralazine HCl 10 mg 01/14/20 06:00 01/15/20 07:58 Apresoline IV 10 mg Q6H PRN Administration Hypertension Ceftriaxone Sodium 2 gm in 100 mls @ 200 mls/hr 01/16/20 10:00 01/16/20 11:04 Rocephin/Ns 2 Gm/100 Ml IV 200 mls/hr Q24HR [facility] Administration Protocol Azithromycin 500 mg/ Sodium 250 mls @ 250 mls/hr 01/16/20 10:00 01/16/20 09:33 Chloride IV 250 mls/hr Q24HR [facility] Administration Protocol Magnesium Hydroxide 30 ml 01/13/20 23:05 Milk Of Magnesia PO Q4H PRN Constipation Metoclopramide HCl 10 mg 01/13/20 23:05 Reglan PO Q6H PRN Nausea And Vomiting Morphine Sulfate 2 mg 01/13/20 23:05 01/14/20 07:14 Morphine IV 2 mg Q5MIN PRN Administration Chest Pain unrelieved by NTG Nicotine 14 mg 01/15/20 12:00 01/16/20 09:32 Habitrol TD 14 mg QDAY PRANEETH Administration Nifedipine 60 mg 01/15/20 11:00 01/16/20 21:08 Procardia Xl PO 60 mg Q12HR PRANEETH Administration Nitroglycerin 0.4 mg 01/13/20 23:05 Nitrostat SL Q5M PRN Chest Pain Ondansetron HCl 4 mg 01/13/20 23:05 01/15/20 13:36 Zofran IV 4 mg Q8H PRN Administration Nausea And Vomiting Pantoprazole Sodium 40 mg 01/15/20 11:00 01/16/20 09:32 Protonix PO 40 mg QDAY PRANEETH Administration Promethazine HCl 25 mg 01/13/20 23:05 Phenergan [place] Q6H PRN Nausea And Vomiting Sodium Chloride 10 ml 01/14/20 10:00 01/16/20 21:08 Sodium Chloride Flush Syringe 10 Ml IV 10 ml BID PRANEETH Administration Sodium Chloride 10 ml 01/13/20 23:05 Sodium Chloride Flush Syringe 10 Ml IV PRN PRN LINE FLUSH Nutrition/Malnutrition Assess - Dietary Evaluation Nutrition/Malnutrition Findings: Nutrition Notes Start: 01/14/20 12:48 Freq: Status: Active Protocol: Document 01/14/20 12:48 LM (Rec: 01/14/20 12:50 LM [id number]) Nutrition Notes Need for Assessment generated from: MD Order Initial or Follow up Brief Note Current Diagnosis Hypertension,Stroke Other Pertinent Diagnosis chest pain Current Diet NPO Height 5 ft 4 in Weight 64.5 kg [place] Body Weight (kg) 59.09 BMI 24.4 Weight Status Appropriate Subjective/Other Information MD consult for diet education. pt not in room. Pt getting stress test. Nutrition Intervention Follow-Up By: 01/18/20 Additional Comments F/U for dier education and diet advancement
[2020-01-17] MEDS: PANTOPRAZOLE 40 MG TAB PO SCH (10:22)
[2020-01-17] MEDS: NICOTINE 14 MG/24 HR PATCH TD SCH (10:22)
[2020-01-17] MEDS: ASPIRIN 325 MG TAB PO SCH (10:22)
[2020-01-17] MEDS: NIFEdipine XL 60 MG TAB PO SCH ×2 (10:22→21:46)
--- NOTE | 2020-01-17 11:56 | Fluoroscopy Report ---
MODIFIED BARIUM SWALLOW INDICATION: aspiration TECHNIQUE: Swallowing was evaluated in the lateral position under direct fluoroscopy. FINDINGS: The patient was evaluated with thin liquids, nectar, puree and semisolids. No aspiration or penetration was witnessed. There is mild residual in the vallecula and piriform sinuses on the thin liquids and puree. This nithin red easily after an additional swallow. IMPRESSION: No evidence for aspiration. Fluoroscopic time: 1.8 minutes Number of fluoroscopic images: 1 Signer Name: Rudi Moore Jr, MD Signed: 01/17/2020 11:52 AM Workstation Name: [id number]
[2020-01-17] MEDS: cefTRIAXone/NS 2 GM/100 ML 2 GM/100 ML BAG IV SCH (12:01)
[2020-01-17] MEDS: AZITHROMYCIN 500 MG in SODIUM CHLORIDE 0.9% 250ML 250 ML IV SCH (12:53)
[2020-01-18] MEDS: HEPARIN 5,000 UNIT/1 ML VIAL SUB-Q SCH ×3 (05:34→23:39)
[2020-01-18 06:06] LABS: Basophils % (Auto) 0.3 % (0.0-1.8); Eosinophils # (Auto) 0.2 K/mm3 (0.0-0.4); Eosinophils % (Auto) 3.2 % (0.0-4.3); Hematocrit 44.1 % (35.5-45.6); Hemoglobin 15.3 gm/dl (11.8-15.2); Lymphocytes % (Auto) 19.3 % (13.4-35.0); Mean Corpuscular HGB Conc 35 % (32-34); Mean Corpuscular Volume 95 fl (84-94); Monocytes # (Auto) 0.6 K/mm3 (0.0-0.8); Monocytes % (Auto) 12.2 % (0.0-7.3); Platelet Count 179 K/mm3 (140-440); Red Blood Count 4.66 M/mm3 (3.65-5.03); Red Cell Distribution Width 13.3 % (13.2-15.2)
[2020-01-18 06:19] LABS: BUN/Creatinine Ratio 18; Blood Urea Nitrogen 16 mg/dL (9-20); Calcium 8.6 mg/dL (8.4-10.2); Hemolysis Index 12
[2020-01-18] MEDS: cefTRIAXone/NS 2 GM/100 ML 2 GM/100 ML BAG IV SCH (09:39)
[2020-01-18] MEDS: ASPIRIN 325 MG TAB PO SCH (09:40)
[2020-01-18] MEDS: NICOTINE 14 MG/24 HR PATCH TD SCH (09:40)
[2020-01-18] MEDS: AZITHROMYCIN 250 MG TAB PO SCH (09:40)
[2020-01-18] MEDS: NIFEdipine XL 60 MG TAB PO SCH ×2 (09:41→23:39)
[2020-01-18] MEDS: PANTOPRAZOLE 40 MG TAB PO SCH (09:41)
--- NOTE | 2020-01-18 13:32 | Progress Note ---
Assessment and Plan Assessment and plan: Acute CVA. 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 Neurology consultation done. Continue aspirin and add Lipitor. Aspiration pneumonia. Continue IV antibiotics. Chest pain. Continue chest pain pathway. Cardiology consultation Hypertension. Continue antihypertensive medications. DVT prophylaxis. 01/15/2020. Echo findings from 01/13/2020 revealed EF of 55 to 60% with impaired relaxation. Stress test completed on 01/14/2020 is negative for ischemia. Continue aspirin and statin per neurology recommendations. Permissive hypertension per neurology recommendations. Start Procardia 60 mg twice daily today. Await physical therapy recommendations for discharge planning. 01/16/2020. Blood pressure much better controlled with Procardia. Continue aspirin and statin. With regards to the fever, patient with chest x-ray that revealed atelectasis versus developing airspace disease in the left lower lobe. We will start empiric antibiotics. Patient also will have COVID-19 rule out and placed on isolation precautions for now. Consider ID consultation. Await physical therapy recommendations for discharge planning. 01/17/2020. Patient still with fevers. Patient follow-up chest x-ray revealed new left lower lobe infiltrate. Etiology probably aspiration pneumonia versus healthcare associated pneumonia. COVID-19 negative. Speech therapy evaluation revealed over signs and symptoms of aspiration with thin liquids and mixed consistency. Speech therapy recommends MBS. We will follow-up study today. Continue IV antibiotics. Consider ID consultation. Await physical therapy recommendations for discharge planning. 01/18/2020 Patient with acute stroke. Patient evaluated by PT. Disposition to be determined after re-evaluation. Acute rehab recommended. History Interval history: patient with acute stroke Dizziness Ataxia Hospitalist Physical - Physical exam Narrative exam: GEN: Not in acute distress, lying in bed HEENT: Normocephalic, atraumatic, Neck: supple, No JVD Lungs: Clear to auscultation bilaterally, heart;S1 and S2 reg, no murmurs, rubs or gallop Abd:soft, non tender, non distended, normal bowel sounds, Ext: No edema, no clubbing, no cyanosis, Neuro: Awake,alert,oriented X3 ,moves all ext, - Constitutional Vitals: Temp Pulse Resp BP Pulse Ox 97.9 F 91 H 18 124/80 90 01/18/20 08:20 01/18/20 08:20 01/18/20 08:20 01/18/20 08:20 01/18/20 08:20 General appearance: Present: no acute distress HEART Score - HEART Score Troponin: Troponin T < 0.010 ng/mL (0.00-0.029) 01/14/20 04:35 Results - Labs CBC & Chem 7: 01/18/20 04:59 01/18/20 04:59 Labs: Laboratory Last Values WBC 5.2 K/mm3 (4.5-11.0) 01/18/20 04:59 RBC 4.66 M/mm3 (3.65-5.03) 01/18/20 04:59 Hgb 15.3 gm/dl (11.8-15.2) H 01/18/20 04:59 Hct 44.1 % (35.5-45.6) 01/18/20 04:59 MCV 95 fl (84-94) H 01/18/20 04:59 MCH 33 pg (28-32) H 01/18/20 04:59 MCHC 35 % (32-34) H 01/18/20 04:59 RDW 13.3 % (13.2-15.2) 01/18/20 04:59 Plt Count 179 K/mm3 (140-440) 01/18/20 04:59 Lymph % (Auto) 19.3 % (13.4-35.0) 01/18/20 04:59 [place] % (Auto) 12.2 % (0.0-7.3) H 01/18/20 04:59 Eos % (Auto) 3.2 % (0.0-4.3) 01/18/20 04:59 Baso % (Auto) 0.3 % (0.0-1.8) 01/18/20 04:59 Lymph # 1.0 K/mm3 (1.2-5.4) L 01/18/20 04:59 [place] # 0.6 K/mm3 (0.0-0.8) 01/18/20 04:59 Eos # 0.2 K/mm3 (0.0-0.4) 01/18/20 04:59 Baso # 0.0 K/mm3 (0.0-0.1) 01/18/20 04:59 Seg Neutrophils % 65.0 % (40.0-70.0) 01/18/20 04:59 Seg Neutrophils # 3.4 K/mm3 (1.8-7.7) 01/18/20 04:59 PT 13.4 Sec. (12.2-14.9) 01/14/20 04:35 INR 1.01 (0.87-1.13) 01/14/20 04:35 D-Dimer 166.29 ng/mlDDU (0-234) 01/16/20 08:14 Sodium 140 mmol/L (137-145) 01/18/20 04:59 Potassium 3.6 mmol/L (3.6-5.0) 01/18/20 04:59 Chloride 99.1 mmol/L (98-107) 01/18/20 04:59 Carbon Dioxide 27 mmol/L (22-30) 01/18/20 04:59 Anion Gap 18 mmol/L 01/18/20 04:59 BUN 16 mg/dL (9-20) 01/18/20 04:59 Creatinine 0.9 mg/dL (0.8-1.5) 01/18/20 04:59 Estimated GFR > 60 ml/min 01/18/20 04:59 BUN/Creatinine Ratio 18 % 01/18/20 04:59 Glucose 139 mg/dL (75-100) H 01/18/20 04:59 POC Glucose 107 (70-105) H 01/17/20 17:14 Calcium 8.6 mg/dL (8.4-10.2) 01/18/20 04:59 Magnesium 2.00 mg/dL (1.7-2.3) 01/13/20 17:41 Ferritin 718.0 ng/mL (13.0-400.0) H 01/16/20 08:14 Lactate Dehydrogenase 155 units/L (91-180) 01/16/20 08:14 Total Creatine Kinase 132 units/L (55-170) 01/13/20 17:41 Troponin T < 0.010 ng/mL (0.00-0.029) 01/14/20 04:35 C-Reactive Protein 1.60 mg/dL (0.00-1.30) H 01/16/20 08:14 Triglycerides 95 mg/dL (2-149) 01/14/20 04:35 Cholesterol 159 mg/dL (50-199) 01/14/20 04:35 LDL Cholesterol Direct 109 mg/dL (50-130) 01/14/20 04:35 HDL Cholesterol 38 mg/dL (40-59) L 01/14/20 04:35 Cholesterol/HDL Ratio 4.18 % 01/14/20 04:35 Procalcitonin 0.20 ng/mL (<0.15) 01/16/20 08:14 Urine Color Yellow (Yellow) 01/13/20 Unknown Urine Turbidity Clear (Clear) 01/13/20 Unknown Urine pH 6.0 (5.0-7.0) 01/13/20 Unknown Ur Specific [place] 1.044 (1.003-1.030) H 01/13/20 Unknown Urine Protein <15 mg/dl mg/dL (Negative) 01/13/20 Unknown Urine Glucose (UA) 50 mg/dL (Negative) 01/13/20 Unknown Urine Ketones Neg mg/dL (Negative) 01/13/20 Unknown Urine Blood Sm (Negative) 01/13/20 Unknown Urine Nitrite Neg (Negative) 01/13/20 Unknown Urine Bilirubin Neg (Negative) 01/13/20 Unknown Urine Urobilinogen 2.0 mg/dL (<2.0) 01/13/20 Unknown Ur Leukocyte Esterase Neg (Negative) 01/13/20 Unknown Urine WBC (Auto) 4.0 /HPF (0.0-6.0) 01/13/20 Unknown Urine RBC (Auto) 4.0 /HPF (0.0-6.0) 01/13/20 Unknown Urine Bacteria (Auto) 1+ /HPF (Negative) 01/13/20 Unknown Urine Mucus 1+ /HPF 01/13/20 Unknown Salicylates < 0.3 mg/dL (2.8-20.0) L 01/13/20 17:41 Urine Opiates Screen Presumptive negative 01/13/20 Unknown Urine Methadone Screen Presumptive negative 01/13/20 Unknown Acetaminophen < 5.0 ug/mL (10.0-30.0) L 01/13/20 17:41 Ur Barbiturates Screen Presumptive negative 01/13/20 Unknown Ur Phencyclidine Scrn Presumptive negative 01/13/20 Unknown Ur Amphetamines Screen Presumptive negative 01/13/20 Unknown U Benzodiazepines Scrn Presumptive negative 01/13/20 Unknown Urine Cocaine Screen Presumptive negative 01/13/20 Unknown U Marijuana (THC) Screen Presumptive negative 01/13/20 Unknown Drugs of Abuse Note Disclamer 01/13/20 Unknown Plasma/Serum Alcohol < 0.01 % (0-0.07) 01/13/20 17:41 Coronavirus (PCR) Negative (Negative) 01/16/20 07:26 Microbiology: Microbiology 01/15/20 18:00 Urine,Clean Catch Urine Culture - Final - Diagnostic Impressions Diagnostic Impressions: Echocardiogram 01/13/20 23:23 Transthoracic Echocardiogram Indication: Stroke BP: 146/76 HR: 83 Conclusions *Global left ventricular systolic function is normal. *The estimated ejection fraction is 55-60%. *Abnormal left ventricular diastolic filling is observed, consistent with impaired relaxation. *No atrial septal defected is demonstrated by agitated saline contrast. *There is no evidence of aortic regurgitation. *There is no evidence of mitral regurgitation. *There is physiological tricuspid regurgitation. *The right ventricular systolic pressure is calculated at 12 mmHg. *There is no pericardial effusion. Findings Left Ventricle: The left ventricular chamber size is normal. There is no left ventricular hypertrophy. Global left ventricular wall motion and contractility are within normal limits. Global left ventricular systolic function is normal. The estimated ejection fraction is 55-60%. Abnormal left ventricular diastolic filling is observed, consistent with impaired relaxation. Left Atrium: The left atrial chamber size is normal. Right Ventricle: The right ventricular cavity size is normal. Right Atrium: The right atrial cavity size is normal. No atrial septal defected is demonstrated by agitated saline contrast. Aortic Valve: The aortic valve leaflets are mildly thickened. There is no evidence of aortic regurgitation. Mitral Valve: The mitral valve leaflets do not appear thickened. There is no evidence of mitral regurgitation. Tricuspid Valve: The tricuspid valve leaflets are normal. There is physiological tricuspid regurgitation. The right ventricular systolic pressure is calculated at 12 mmHg. Pulmonic Valve: The pulmonic valve appears normal. Pericardium: There is no pericardial effusion. Aorta: The aorta appears normal. Venous: The inferior vena cava appears normal. Contrast: Intravenous agitated saline contrast was used to assess intracardiac shunting. Measurements Chambers 2D Name Value Normal Range IVSd (2D) 1 cm (0.6 - 1.1) LVPWd (2D) 1.03 cm (0.6 - 1.1) LVIDd (2D) 4.22 cm (3.7 - 5.6) LVIDs (2D) 2.67 cm (2 - 3.8) LV FS (2D) 36.67 % - EF Teichholz (2D) 66.85 % - Ao root diameter (2D) 3.38 cm (2 - 3.7) Volumes/Mass Name Value Normal Range LA ESV SP 4CH (A/L) 32.28 ml - LA ESV SP 2CH (A/L) 29.69 ml - LA ESV BP (A/L) 31.15 ml - LA ESV BP (A/L) index 18.43 ml/m2 - LA ESV SP 4CH (MOD) 27.67 ml - LA ESV SP 2CH (MOD) 28.3 ml - LA ESV BP (MOD) 28.06 ml - LA ESV BP (MOD) index 16.6 ml/m2 - Diastolic/Systolic Function Name Value Normal Range MV E-wave Vmax 0.54 m/sec - MV deceleration time 235.81 msec - MV A-wave Vmax 0.75 m/sec - MV E:A ratio 0.72 ratio - Aortic Valve Name Value Normal Range AV Vmax 1.49 m/sec - AV VTI 25.42 cm - AV peak gradient 8.84 mmHg - AV mean gradient 3.79 mmHg - LVOT diameter 2.11 cm - LVOT Vmax 1.17 m/sec - LVOT VTI 19.65 cm - LVOT peak gradient 5.51 mmHg - LVOT mean gradient 2.38 mmHg - SV LVOT 68.62 ml - YULISA (continuity Vmax) 2.76 cm2 - YULISA (continuity VTI) 2.7 cm2 - Tricuspid Valve Name Value Normal Range TR Vmax 1.49 m/sec - TR peak gradient 9 mmHg - RAP 3 mmHg - RVSP 12 mmHg - IVC diameter 1.53 cm (1.2 - 2.3) Pulmonic Valve/Qp:Qs Name Value Normal Range PV Vmax 0.78 m/sec - PV peak gradient 2.46 mmHg - PV acceleration time 117.98 msec - [place]/IV: Voiding Method Urinal IV Catheter Type [Left Wrist] INT / Saline Lock IV Catheter Type [Right Peripheral IV Antecubital] Active Medications - Current Medications Current Medications: Generic Name Dose Route Start Last Admin Trade Name Freq PRN Reason Stop Dose Admin Acetaminophen 650 mg 01/13/20 23:05 01/16/20 23:49 Tylenol PO 650 mg Q4H PRN Administration Pain, Mild (1-3) Aspirin 325 mg 01/14/20 10:00 01/18/20 09:40 Aspirin PO 325 mg QDAY PRANEETH Administration Atorvastatin Calcium 40 mg 01/14/20 22:00 01/17/20 21:46 Lipitor PO 40 mg QHS PRANEETH Administration Azithromycin 500 mg 01/18/20 10:00 01/18/20 09:40 Zithromax PO 01/21/20 10:01 500 mg QDAY PRANEETH Administration Bisacodyl 10 mg 01/13/20 23:05 Dulcolax FL QDAY PRN Constipation Heparin Sodium (Porcine) 5,000 unit 01/14/20 06:00 01/18/20 05:34 Heparin SUB-Q 5,000 unit Q8HR PRANEETH Administration Hydralazine HCl 10 mg 01/14/20 06:00 01/15/20 07:58 Apresoline IV 10 mg Q6H PRN Administration Hypertension Ceftriaxone Sodium 2 gm in 100 mls @ 200 mls/hr 01/16/20 10:00 01/18/20 09:39 Rocephin/Ns 2 Gm/100 Ml IV 01/20/20 10:29 200 mls/hr Q24HR PRANEETH Administration Protocol Magnesium Hydroxide 30 ml 01/13/20 23:05 Milk Of Magnesia PO Q4H PRN Constipation Metoclopramide HCl 10 mg 01/13/20 23:05 Reglan PO Q6H PRN Nausea And Vomiting Morphine Sulfate 2 mg 01/13/20 23:05 01/14/20 07:14 Morphine IV 2 mg Q5MIN PRN Administration Chest Pain unrelieved by NTG Nicotine 14 mg 01/15/20 12:00 01/18/20 09:40 Habitrol TD 14 mg QDAY PRANEETH Administration Nifedipine 60 mg 01/15/20 11:00 01/18/20 09:41 Procardia Xl PO 60 mg Q12HR PRANEETH Administration Nitroglycerin 0.4 mg 01/13/20 23:05 Nitrostat SL Q5M PRN Chest Pain Ondansetron HCl 4 mg 01/13/20 23:05 01/15/20 13:36 Zofran IV 4 mg Q8H PRN Administration Nausea And Vomiting Pantoprazole Sodium 40 mg 01/15/20 11:00 01/18/20 09:41 Protonix PO 40 mg QDAY PRANEETH Administration Promethazine HCl 25 mg 01/13/20 23:05 Phenergan FL Q6H PRN Nausea And Vomiting Sodium Chloride 10 ml 01/14/20 10:00 01/18/20 09:41 Sodium Chloride Flush Syringe 10 Ml IV 10 ml BID PRANEETH Administration Sodium Chloride 10 ml 01/13/20 23:05 Sodium Chloride Flush Syringe 10 Ml IV PRN PRN LINE FLUSH Nutrition/Malnutrition Assess - Dietary Evaluation Nutrition/Malnutrition Findings: Nutrition Notes Start: 01/14/20 12:48 Freq: Status: Active Protocol: Document 01/18/20 11:25 LM (Rec: 01/18/20 11:32 LM [id number]) Nutrition Notes Initial or Follow up Brief Note Current Diagnosis Hypertension,Stroke Other Pertinent Diagnosis chest pain Current Diet Cardiac Weight Status Appropriate Subjective/Other Information Pt stated he is eating well with no wt loss. Provided heart healthy diet education to pt. Discussed foods sources high in Na and encouraged pt to chose whole grains, fruits and vegetables, lean meats/ unprocessed meats, and healthy fats. #1 Nutrition Diagnosis Food and nutrition-related knowledge deficit Etiology no prior heart healthy diet education As Evidenced by Signs and Symptoms pt wanting education Nutrition Intervention Teaching Recipient Patient Learning Readiness Fair Teaching Methods Discussion Response to Teaching Reinforcement needed Barriers to Learning Reading skills,Motivation RD phone number provided Yes Patient aware of follow up options Yes Revisit per MD consult or patient Sign Off request:
[2020-01-19] MEDS: HEPARIN 5,000 UNIT/1 ML VIAL SUB-Q SCH ×3 (05:30→22:02)
[2020-01-19] MEDS: PANTOPRAZOLE 40 MG TAB PO SCH (11:20)
[2020-01-19] MEDS: ASPIRIN 325 MG TAB PO SCH (11:20)
[2020-01-19] MEDS: NIFEdipine XL 60 MG TAB PO SCH ×2 (11:21→22:01)
[2020-01-19] MEDS: AZITHROMYCIN 250 MG TAB PO SCH (11:21)
[2020-01-19] MEDS: cefTRIAXone/NS 2 GM/100 ML 2 GM/100 ML BAG IV SCH (11:21)
[2020-01-19] MEDS: NICOTINE 14 MG/24 HR PATCH TD SCH (11:21)
[2020-01-19] MEDS: hydrALAZINE 20 MG/1 ML INJ IV PRN (21:02)
--- NOTE | 2020-01-19 22:24 | Progress Note ---
Assessment and Plan Assessment and plan: Acute CVA. 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 Neurology consultation done. Continue aspirin and add Lipitor. Aspiration pneumonia. Continue IV antibiotics. Chest pain. Continue chest pain pathway. Cardiology consultation Hypertension. Continue antihypertensive medications. DVT prophylaxis. 01/15/2020. Echo findings from 01/13/2020 revealed EF of 55 to 60% with impaired relaxation. Stress test completed on 01/14/2020 is negative for ischemia. Continue aspirin and statin per neurology recommendations. Permissive hypertension per neurology recommendations. Start Procardia 60 mg twice daily today. Await physical therapy recommendations for discharge planning. 01/16/2020. Blood pressure much better controlled with Procardia. Continue aspirin and statin. With regards to the fever, patient with chest x-ray that revealed atelectasis versus developing airspace disease in the left lower lobe. We will start empiric antibiotics. Patient also will have COVID-19 rule out and placed on isolation precautions for now. Consider ID consultation. Await physical therapy recommendations for discharge planning. 01/17/2020. Patient still with fevers. Patient follow-up chest x-ray revealed new left lower lobe infiltrate. Etiology probably aspiration pneumonia versus healthcare associated pneumonia. COVID-19 negative. Speech therapy evaluation revealed over signs and symptoms of aspiration with thin liquids and mixed consistency. Speech therapy recommends MBS. We will follow-up study today. Continue IV antibiotics. Consider ID consultation. Await physical therapy recommendations for discharge planning. 01/18/2020 Patient with acute stroke. Patient evaluated by PT. Disposition to be determined after re-evaluation. Acute rehab recommended. 01/19/2020 Patient with acute stroke. He is medically stable. Awaiting placement to Rehab. History Interval history: patient with acute stroke Dizziness Ataxia Hospitalist Physical - Physical exam Narrative exam: GEN: Not in acute distress, lying in bed HEENT: Normocephalic, atraumatic, Neck: supple, No JVD Lungs: Clear to auscultation bilaterally, heart;S1 and S2 reg, no murmurs, rubs or gallop Abd:soft, non tender, non distended, normal bowel sounds, Ext: No edema, no clubbing, no cyanosis, Neuro: Awake,alert,oriented X3 ,moves all ext,ataxia, poor ambulation - Constitutional Vitals: Temp Pulse Resp BP Pulse Ox 98.2 F 93 H 18 177/104 94 01/19/20 19:43 01/19/20 21:02 01/19/20 19:43 01/19/20 21:02 01/19/20 19:43 General appearance: Present: no acute distress HEART Score - HEART Score Troponin: Troponin T < 0.010 ng/mL (0.00-0.029) 01/14/20 04:35 Results - Labs CBC & Chem 7: 01/18/20 04:59 01/18/20 04:59 Labs: Laboratory Last Values WBC 5.2 K/mm3 (4.5-11.0) 01/18/20 04:59 RBC 4.66 M/mm3 (3.65-5.03) 01/18/20 04:59 Hgb 15.3 gm/dl (11.8-15.2) H 01/18/20 04:59 Hct 44.1 % (35.5-45.6) 01/18/20 04:59 MCV 95 fl (84-94) H 01/18/20 04:59 MCH 33 pg (28-32) H 01/18/20 04:59 MCHC 35 % (32-34) H 01/18/20 04:59 RDW 13.3 % (13.2-15.2) 01/18/20 04:59 Plt Count 179 K/mm3 (140-440) 01/18/20 04:59 Lymph % (Auto) 19.3 % (13.4-35.0) 01/18/20 04:59 [place] % (Auto) 12.2 % (0.0-7.3) H 01/18/20 04:59 Eos % (Auto) 3.2 % (0.0-4.3) 01/18/20 04:59 Baso % (Auto) 0.3 % (0.0-1.8) 01/18/20 04:59 Lymph # 1.0 K/mm3 (1.2-5.4) L 01/18/20 04:59 [place] # 0.6 K/mm3 (0.0-0.8) 01/18/20 04:59 Eos # 0.2 K/mm3 (0.0-0.4) 01/18/20 04:59 Baso # 0.0 K/mm3 (0.0-0.1) 01/18/20 04:59 Seg Neutrophils % 65.0 % (40.0-70.0) 01/18/20 04:59 Seg Neutrophils # 3.4 K/mm3 (1.8-7.7) 01/18/20 04:59 PT 13.4 Sec. (12.2-14.9) 01/14/20 04:35 INR 1.01 (0.87-1.13) 01/14/20 04:35 D-Dimer 166.29 ng/mlDDU (0-234) 01/16/20 08:14 Sodium 140 mmol/L (137-145) 01/18/20 04:59 Potassium 3.6 mmol/L (3.6-5.0) 01/18/20 04:59 Chloride 99.1 mmol/L (98-107) 01/18/20 04:59 Carbon Dioxide 27 mmol/L (22-30) 01/18/20 04:59 Anion Gap 18 mmol/L 01/18/20 04:59 BUN 16 mg/dL (9-20) 01/18/20 04:59 Creatinine 0.9 mg/dL (0.8-1.5) 01/18/20 04:59 Estimated GFR > 60 ml/min 01/18/20 04:59 BUN/Creatinine Ratio 18 % 01/18/20 04:59 Glucose 139 mg/dL (75-100) H 01/18/20 04:59 POC Glucose 107 (70-105) H 01/17/20 17:14 Calcium 8.6 mg/dL (8.4-10.2) 01/18/20 04:59 Magnesium 2.00 mg/dL (1.7-2.3) 01/13/20 17:41 Ferritin 718.0 ng/mL (13.0-400.0) H 01/16/20 08:14 Lactate Dehydrogenase 155 units/L (91-180) 01/16/20 08:14 Total Creatine Kinase 132 units/L (55-170) 01/13/20 17:41 Troponin T < 0.010 ng/mL (0.00-0.029) 01/14/20 04:35 C-Reactive Protein 1.60 mg/dL (0.00-1.30) H 01/16/20 08:14 Triglycerides 95 mg/dL (2-149) 01/14/20 04:35 Cholesterol 159 mg/dL (50-199) 01/14/20 04:35 LDL Cholesterol Direct 109 mg/dL (50-130) 01/14/20 04:35 HDL Cholesterol 38 mg/dL (40-59) L 01/14/20 04:35 Cholesterol/HDL Ratio 4.18 % 01/14/20 04:35 Procalcitonin 0.20 ng/mL (<0.15) 01/16/20 08:14 Urine Color Yellow (Yellow) 01/13/20 Unknown Urine Turbidity Clear (Clear) 01/13/20 Unknown Urine pH 6.0 (5.0-7.0) 01/13/20 Unknown Ur Specific [place] 1.044 (1.003-1.030) H 01/13/20 Unknown Urine Protein <15 mg/dl mg/dL (Negative) 01/13/20 Unknown Urine Glucose (UA) 50 mg/dL (Negative) 01/13/20 Unknown Urine Ketones Neg mg/dL (Negative) 01/13/20 Unknown Urine Blood Sm (Negative) 01/13/20 Unknown Urine Nitrite Neg (Negative) 01/13/20 Unknown Urine Bilirubin Neg (Negative) 01/13/20 Unknown Urine Urobilinogen 2.0 mg/dL (<2.0) 01/13/20 Unknown Ur Leukocyte Esterase Neg (Negative) 01/13/20 Unknown Urine WBC (Auto) 4.0 /HPF (0.0-6.0) 01/13/20 Unknown Urine RBC (Auto) 4.0 /HPF (0.0-6.0) 01/13/20 Unknown Urine Bacteria (Auto) 1+ /HPF (Negative) 01/13/20 Unknown Urine Mucus 1+ /HPF 01/13/20 Unknown Salicylates < 0.3 mg/dL (2.8-20.0) L 01/13/20 17:41 Urine Opiates Screen Presumptive negative 01/13/20 Unknown Urine Methadone Screen Presumptive negative 01/13/20 Unknown Acetaminophen < 5.0 ug/mL (10.0-30.0) L 01/13/20 17:41 Ur Barbiturates Screen Presumptive negative 01/13/20 Unknown Ur Phencyclidine Scrn Presumptive negative 01/13/20 Unknown Ur Amphetamines Screen Presumptive negative 01/13/20 Unknown U Benzodiazepines Scrn Presumptive negative 01/13/20 Unknown Urine Cocaine Screen Presumptive negative 01/13/20 Unknown U Marijuana (THC) Screen Presumptive negative 01/13/20 Unknown Drugs of Abuse Note Disclamer 01/13/20 Unknown Plasma/Serum Alcohol < 0.01 % (0-0.07) 01/13/20 17:41 Coronavirus (PCR) Negative (Negative) 01/16/20 07:26 - Diagnostic Impressions Diagnostic Impressions: Echocardiogram 01/13/20 23:23 Transthoracic Echocardiogram Indication: Stroke BP: 146/76 HR: 83 Conclusions *Global left ventricular systolic function is normal. *The estimated ejection fraction is 55-60%. *Abnormal left ventricular diastolic filling is observed, consistent with impaired relaxation. *No atrial septal defected is demonstrated by agitated saline contrast. *There is no evidence of aortic regurgitation. *There is no evidence of mitral regurgitation. *There is physiological tricuspid regurgitation. *The right ventricular systolic pressure is calculated at 12 mmHg. *There is no pericardial effusion. Findings Left Ventricle: The left ventricular chamber size is normal. There is no left ventricular hypertrophy. Global left ventricular wall motion and contractility are within normal limits. Global left ventricular systolic function is normal. The estimated ejection fraction is 55-60%. Abnormal left ventricular diastolic filling is observed, consistent with impaired relaxation. Left Atrium: The left atrial chamber size is normal. Right Ventricle: The right ventricular cavity size is normal. Right Atrium: The right atrial cavity size is normal. No atrial septal defected is demonstrated by agitated saline contrast. Aortic Valve: The aortic valve leaflets are mildly thickened. There is no evidence of aortic regurgitation. Mitral Valve: The mitral valve leaflets do not appear thickened. There is no evidence of mitral regurgitation. Tricuspid Valve: The tricuspid valve leaflets are normal. There is physiological tricuspid regurgitation. The right ventricular systolic pressure is calculated at 12 mmHg. Pulmonic Valve: The pulmonic valve appears normal. Pericardium: There is no pericardial effusion. Aorta: The aorta appears normal. Venous: The inferior vena cava appears normal. Contrast: Intravenous agitated saline contrast was used to assess intracardiac shunting. Measurements Chambers 2D Name Value Normal Range IVSd (2D) 1 cm (0.6 - 1.1) LVPWd (2D) 1.03 cm (0.6 - 1.1) LVIDd (2D) 4.22 cm (3.7 - 5.6) LVIDs (2D) 2.67 cm (2 - 3.8) LV FS (2D) 36.67 % - EF Teichholz (2D) 66.85 % - Ao root diameter (2D) 3.38 cm (2 - 3.7) Volumes/Mass Name Value Normal Range LA ESV SP 4CH (A/L) 32.28 ml - LA ESV SP 2CH (A/L) 29.69 ml - LA ESV BP (A/L) 31.15 ml - LA ESV BP (A/L) index 18.43 ml/m2 - LA ESV SP 4CH (MOD) 27.67 ml - LA ESV SP 2CH (MOD) 28.3 ml - LA ESV BP (MOD) 28.06 ml - LA ESV BP (MOD) index 16.6 ml/m2 - Diastolic/Systolic Function Name Value Normal Range MV E-wave Vmax 0.54 m/sec - MV deceleration time 235.81 msec - MV A-wave Vmax 0.75 m/sec - MV E:A ratio 0.72 ratio - Aortic Valve Name Value Normal Range AV Vmax 1.49 m/sec - AV VTI 25.42 cm - AV peak gradient 8.84 mmHg - AV mean gradient 3.79 mmHg - LVOT diameter 2.11 cm - LVOT Vmax 1.17 m/sec - LVOT VTI 19.65 cm - LVOT peak gradient 5.51 mmHg - LVOT mean gradient 2.38 mmHg - SV LVOT 68.62 ml - YULISA (continuity Vmax) 2.76 cm2 - YULISA (continuity VTI) 2.7 cm2 - Tricuspid Valve Name Value Normal Range TR Vmax 1.49 m/sec - TR peak gradient 9 mmHg - RAP 3 mmHg - RVSP 12 mmHg - IVC diameter 1.53 cm (1.2 - 2.3) Pulmonic Valve/Qp:Qs Name Value Normal Range PV Vmax 0.78 m/sec - PV peak gradient 2.46 mmHg - PV acceleration time 117.98 msec - Dumas/IV: Voiding Method Urinal IV Catheter Type [Left Forearm Peripheral IV ] IV Catheter Type [Left Wrist] INT / Saline Lock IV Catheter Type [Right Peripheral IV Antecubital] Active Medications - Current Medications Current Medications: Generic Name Dose Route Start Last Admin Trade Name Freq PRN Reason Stop Dose Admin Acetaminophen 650 mg 01/13/20 23:05 01/16/20 23:49 Tylenol PO 650 mg Q4H PRN Administration Pain, Mild (1-3) Aspirin 325 mg 01/14/20 10:00 01/19/20 11:20 Aspirin PO 325 mg QDAY PRANEETH Administration Atorvastatin Calcium 40 mg 01/14/20 22:00 01/19/20 22:01 Lipitor PO 40 mg QHS PRANEETH Administration Azithromycin 500 mg 01/18/20 10:00 01/19/20 11:21 Zithromax PO 01/21/20 10:01 500 mg QDAY PRANEETH Administration Bisacodyl 10 mg 01/13/20 23:05 Dulcolax SD QDAY PRN Constipation Heparin Sodium (Porcine) 5,000 unit 01/14/20 06:00 01/19/20 22:02 Heparin SUB-Q 5,000 unit Q8HR PRANEETH Administration Hydralazine HCl 10 mg 01/14/20 06:00 01/19/20 21:02 Apresoline IV 10 mg Q6H PRN Administration Hypertension Ceftriaxone Sodium 2 gm in 100 mls @ 200 mls/hr 01/16/20 10:00 01/19/20 11:21 Rocephin/Ns 2 Gm/100 Ml IV 01/20/20 10:29 200 mls/hr Q24HR PRANEETH Administration Protocol Magnesium Hydroxide 30 ml 01/13/20 23:05 Milk Of Magnesia PO Q4H PRN Constipation Metoclopramide HCl 10 mg 01/13/20 23:05 Reglan PO Q6H PRN Nausea And Vomiting Morphine Sulfate 2 mg 01/13/20 23:05 01/14/20 07:14 Morphine IV 2 mg Q5MIN PRN Administration Chest Pain unrelieved by NTG Nicotine 14 mg 01/15/20 12:00 01/19/20 11:21 Habitrol TD 14 mg QDAY PRANEETH Administration Nifedipine 60 mg 01/15/20 11:00 01/19/20 22:01 Procardia Xl PO 60 mg Q12HR PRANEETH Administration Nitroglycerin 0.4 mg 01/13/20 23:05 Nitrostat SL Q5M PRN Chest Pain Ondansetron HCl 4 mg 01/13/20 23:05 01/15/20 13:36 Zofran IV 4 mg Q8H PRN Administration Nausea And Vomiting Pantoprazole Sodium 40 mg 01/15/20 11:00 01/19/20 11:20 Protonix PO 40 mg QDAY PRANEETH Administration Promethazine HCl 25 mg 01/13/20 23:05 Phenergan SD Q6H PRN Nausea And Vomiting Sodium Chloride 10 ml 01/14/20 10:00 01/19/20 21:03 Sodium Chloride Flush Syringe 10 Ml IV 10 ml BID PRANEETH Administration Sodium Chloride 10 ml 01/13/20 23:05 Sodium Chloride Flush Syringe 10 Ml IV PRN PRN LINE FLUSH Nutrition/Malnutrition Assess - Dietary Evaluation Nutrition/Malnutrition Findings: Nutrition Notes Start: 01/14/20 12:48 Freq: Status: Active Protocol: Document 01/18/20 11:25 LM (Rec: 01/18/20 11:32 LM [id number]) Nutrition Notes Initial or Follow up Brief Note Current Diagnosis Hypertension,Stroke Other Pertinent Diagnosis chest pain Current Diet Cardiac Weight Status Appropriate Subjective/Other Information Pt stated he is eating well with no wt loss. Provided heart healthy diet education to pt. Discussed foods sources high in Na and encouraged pt to chose whole grains, fruits and vegetables, lean meats/ unprocessed meats, and healthy fats. #1 Nutrition Diagnosis Food and nutrition-related knowledge deficit Etiology no prior heart healthy diet education As Evidenced by Signs and Symptoms pt wanting education Nutrition Intervention Teaching Recipient Patient Learning Readiness Fair Teaching Methods Discussion Response to Teaching Reinforcement needed Barriers to Learning Reading skills,Motivation RD phone number provided Yes Patient aware of follow up options Yes Revisit per MD consult or patient Sign Off request:
[2020-01-20] MEDS: HEPARIN 5,000 UNIT/1 ML VIAL SUB-Q SCH (05:18)
[2020-01-20] MEDS: cefTRIAXone/NS 2 GM/100 ML 2 GM/100 ML BAG IV SCH (09:25)
[2020-01-20] MEDS: ASPIRIN 325 MG TAB PO SCH (09:25)
[2020-01-20] MEDS: PANTOPRAZOLE 40 MG TAB PO SCH (09:26)
[2020-01-20] MEDS: NICOTINE 14 MG/24 HR PATCH TD SCH (09:26)
[2020-01-20] MEDS: NIFEdipine XL 60 MG TAB PO SCH (09:26)
[2020-01-20] MEDS: AZITHROMYCIN 250 MG TAB PO SCH (09:26)
--- NOTE | 2020-01-20 09:26 | Discharge Summary ---
Providers - Providers Date of Admission: 01/13/20 22:58 Date of discharge: 01/20/20 Attending physician: HOMA CLARK 01/13/20 23:05 Consult to Physician [CONS] Routine Comment: Consulting Provider: DELMIS PEREZ Physician Instructions: Reason For Exam: CVA 01/13/20 23:11 Consult to Dietitian/Nutrition [CONS] Routine Physician Instructions: Reason For Exam: Reason for Consult: Nutrition Recommendations Reason for Consult: Diet education Occupational Therapy Evaluate and Treat [CONS] Routine Comment: Reason For Exam: Neuro deficits Physical Therapy Evaluation and Treat [CONS] Routine Comment: Reason For Exam: Neuro deficits 01/13/20 23:18 Speech Therapy Evaluation and Treat [CONS] Routine Reason For Exam: swallow eval 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 Patient indicates that he fell backwards after losing his balance. Denies any loss of consciousness, no neck pain, no shortness of breath. He however had some chest tightness and also had some nausea. 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 CT scan of the head shows no acute changes. MRI confirmed stroke showing acute right posterior lateral medulla infarct. Neurology consultation done. He was seen by PT, arrangements made and he was discharged to Acute Rehab on 01/20/2020. Acute CVA. 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 Neurology consultation done. Continue aspirin and add Lipitor. Aspiration pneumonia. Continue IV antibiotics. Chest pain. Continue chest pain pathway. Cardiology consultation Hypertension. Continue antihypertensive medications. 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 To follow up with Neurosurgeon as outpatient. Neurosurg not available in this hospital 01/15/2020. Echo findings from 01/13/2020 revealed EF of 55 to 60% with impaired relaxation. Stress test completed on 01/14/2020 is negative for ischemia. Continue aspirin and statin per neurology recommendations. Permissive hypertension per neurology recommendations. Start Procardia 60 mg twice daily today. Await physical therapy recommendations for discharge planning. 01/16/2020. Blood pressure much better controlled with Procardia. Continue aspirin and statin. With regards to the fever, patient with chest x-ray that revealed atelectasis versus developing airspace disease in the left lower lobe. We will start empiric antibiotics. Patient also will have COVID-19 rule out and placed on isolation precautions for now. Consider ID consultation. Await physical therapy recommendations for discharge planning. 01/17/2020. Patient still with fevers. Patient follow-up chest x-ray revealed new left lower lobe infiltrate. Etiology probably aspiration pneumonia versus healthcare associated pneumonia. COVID-19 negative. Speech therapy evaluation revealed over signs and symptoms of aspiration with thin liquids and mixed consistency. Speech therapy recommends MBS. We will follow-up study today. Continue IV antibiotics. Consider ID consultation. Await physical therapy recommendations for discharge planning. 01/18/2020 Patient with acute stroke. Patient evaluated by PT. Disposition to be determined after re-evaluation. Acute rehab recommended. 01/19/2020 Patient with acute stroke. He is medically stable. Awaiting placement to Rehab. Total time spent on discharge, 33 mins Disposition: [id number] INPT REHAB FACILITY Core Measure Documentation - Palliative Care Palliative Care/ Comfort Measures: Not Applicable - Core Measures Any of the following diagnoses?: stroke - Stroke Discharge Requirements Statin for LDL = or >70 mg/dl on DC: Yes Anticoag for atrial fib/atrial flutter: Not Applicable Antithrombotic for ischemic stroke: Yes Exam - Constitutional Vitals: Temp Pulse Resp BP Pulse Ox 97.8 F 95 H 17 145/83 93 01/20/20 08:40 01/20/20 08:40 01/20/20 08:40 01/20/20 08:40 01/20/20 08:40 Plan Activity: advance as tolerated Diet: low fat, low cholesterol, low salt Additional Instructions: 1.Follow up with Neurosurgeon in 1-2 weeks for evaluation of small 2-3 mm aneurysm right MCA trifurcation. Plan of Treatment: 1.Follow up with Neurosurgeon in 1-2 weeks for evaluation of small 2-3 mm aneurysm right MCA trifurcation. Follow up with: PRIMARY CARE, [Primary Care Provider] - 3-5 Days Forms: AMA Form Prescriptions: Aspirin EC [Halfprin EC] 81 mg PO QDAY #90 tablet. AtorvaSTATin [Lipitor] 40 mg PO QHS #30 tablet Clopidogrel [Plavix] 75 mg PO QDAY #90 tablet NIFEdipine XL [Procardia Xl] 60 mg PO Q12HR #60 tablet Pantoprazole [Protonix TAB] 40 mg PO QDAY #30 tablet
[2020-01-20] MEDS: ONDANSETRON 4 MG/2 ML INJ IV PRN (09:33)
[2020-01-20 12:04] VITALS: BP 123/78
== END 2020-01-20 12:11 | DRG 64 ==
LOC: ED 16:45 → OBSVTOIN 22:58 → 4A 22:58
PROVIDERS: ADMIT Internal Medicine Geriatric Medicine; ATTEND Internal Medicine
DX: I63.9 Cerebral infarction, unspecified (principal); J69.0 Pneumonitis due to inhalation of food and vomit; I10 Essential (primary) hypertension; Z20.828 Contact with and (suspected) exposure to other viral communicable diseases; E78.5 Hyperlipidemia, unspecified; F17.210 Nicotine dependence, cigarettes, uncomplicated; Z72.89 Other problems related to lifestyle
CPT/HCPCS: 36415; 70450; 70496; 70498; 70551; 71045; 71046; 72125; 74230; 78452; 80048; 80061; 80307; 80320; 81001; 82550; 82728; 82947; 82962; 83615; 83735; 84145; 84484; 85025; 85379; 85610; 86140; 87086; 93005; 93017; 93306; 93880; G0378; A9270-GY; A9502; G0480; J0360; J0456; J0696; J1644; J2270; J2405; J2765; J2785; J7040; J7050; Q9967; U0003-CS

== ENCOUNTER 2020-08-08 12:39 | Observation (INO) | payer OTHER ==
[2020-08-08 14:52] LABS: Calcium 9.3 mg/dL (8.4-10.2)
[2020-08-08 15:03] LABS: Basophils % (Auto) 0.6 % (0.0-1.8); Eosinophils # (Auto) 0.4 K/mm3 (0.0-0.4); Eosinophils % (Auto) 7.3 % (0.0-4.3); Hematocrit 41.6 % (35.5-45.6); Hemoglobin 14.2 gm/dl (11.8-15.2); Lymphocytes # (Auto) 0.9 K/mm3 (1.2-5.4); Lymphocytes % (Auto) 15.8 % (13.4-35.0); Mean Corpuscular HGB Conc 34 % (32-34); Mean Corpuscular Volume 94 fl (84-94); Monocytes # (Auto) 0.7 K/mm3 (0.0-0.8); Monocytes % (Auto) 12.8 % (0.0-7.3); Platelet Count 312 K/mm3 (140-440); Red Blood Count 4.43 M/mm3 (3.65-5.03); Red Cell Distribution Width 13.1 % (13.2-15.2)
--- NOTE | 2020-08-08 17:07 | Event Note ---
ED Screening Note Date of service: 08/08/20 Time: 17:02 ED Screening Note: 64-year-old male presents with dizziness and headache times today. Past medical history of TIA This initial assessment/diagnostic orders/clinical plan/treatment(s) is/are subject to change based on patients health status, clinical progression and re- assessment by fellow clinical providers in the ED. Further treatment and workup at subsequent clinical providers discretion. Patient/guardian urged not to elope from the ED as their condition may be serious if not clinically assessed and managed. Initial orders include: labs CT main ed
--- NOTE | 2020-08-08 18:06 | Cat Scan Report ---
CT head/brain wo con INDICATION / CLINICAL INFORMATION: 64 years Male; dizziness/headache. TECHNIQUE: Routine CT head without contrast. All CT scans at this location are performed using CT dos e reduction for ALARA by means of automated exposure control. COMPARISON: None. FINDINGS: BRAIN / INTRACRANIAL CONTENTS: There is continued moderate cerebral white matter disease most consist ent with microvascular angiopathy. Additionally, there are old small lacunar infarcts involving the b humphrey ganglia and galindo radiata. There is no CT ends of acute intracranial hemorrhage or significant mass effect. There is mild cerebral atrophy. The ventricular system remains appropriate in size and configuration. ORBITS: No significant abnormality of visualized orbits. SINUSES / MASTOIDS: No significant abnormality in the visualized paranasal sinuses or mastoid air jennie ls. CRANIOCERVICAL JUNCTION: No significant abnormality. ADDITIONAL FINDINGS: None. IMPRESSION: 1. This continued microvascular angiopathy and old small lacunar infarcts as described without CT diana dence of acute intracranial hemorrhage. Signer Name: Robbie Seals MD Signed: 08/08/2020 6:02 PM Workstation Name: [id number]
--- NOTE | 2020-08-08 21:31 | Emergency Department Report ---
ED Neuro Deficit HPI - General Chief Complaint: Dizziness Stated Complaint: HEADACHE/BODY ACHE Time Seen by Provider: 08/08/20 21:14 Source: patient, RN notes reviewed, old records reviewed Mode of arrival: Ambulatory Limitations: No Limitations, Physical Limitation - History of Present Illness Initial Comments: The patient was evaluated in the emergency department for symptoms described in the history of present illness. He/she was evaluated in the context of the global COVID-19 pandemic, which necessitated consideration that the patient might be at risk for infection with the virus that causes COVID-19. Institutional protocols and algorithms that pertain to the evaluation of patients at risk for COVID-19 are in a state of rapid change based on information released by regulatory bodies including the CDC and federal and state organizations. These policies and algorithms were followed during the patient's care in the emergency department. Please note that these policies, procedures and recommendations changed on a rapid basis. Patient is a 64-year-old gentleman. He is known to myself previously. He has a history of stroke, presumed COPD, psychiatric disease, hypertension, poor dentition. He was admitted to this hospital for stroke in January of this year. He is documented to have had persistent disconjugate gaze, outpatient prism glasses were recommended, outpatient follow-up with neurology ophthalmology was recommended, and was documented to have 4-5 strength, and issues with ataxia. Today, the patient presents to the ER with a complaint of headache, dizziness, feeling off balance for approximately 1 week. The headache is frontal and left- sided. He states that he feels like nails are going into his head. The headac he is not described as sudden or thunderclap in nature. It is not described as maximal in intensity. His headache is now resolved. He also reports intermittent feeling off balance. This has been going on since his stroke. He feels like it is worse over the past week. He has chronic blurry visi on/floaters in his vision. He has chronic cough. No fever, no chest pain, no abdominal pain, chronic shortness of breath, no loss of taste, no loss of smell, no focal extremity weakness/numbness. Patient has not been able to obtain outpatient follow-up. -: Gradual, week(s) Location: ataxia History of same: Yes Place: home Severity: moderate Improves With: none Worsens With: none On Anticoagulants: Yes (Patient taking aspirin) Associated Symptoms: cough, malise, vertigo, shortness of breath, weakness - Related Data Home Medications: Previous Rx's Medication Instructions Recorded Last Taken Type Aspirin EC [Halfprin EC] 81 mg PO QDAY #90 tablet. 02/04/20 Unknown Rx AtorvaSTATin [Lipitor] 40 mg PO QHS #30 tablet 02/04/20 Unknown Rx Clopidogrel [Plavix] 75 mg PO QDAY #90 tablet 02/04/20 Unknown Rx Diclofenac 1% [Diclofenac 1% 1 applic TP TID tube 02/04/20 Unknown Rx topical gel] NIFEdipine XL [Procardia Xl] 60 mg PO Q12HR #60 tablet 02/04/20 Unknown Rx Nicotine [Habitrol] 14 mg TD QDAY #30 patch 02/04/20 Unknown Rx Pantoprazole [Protonix TAB] 40 mg PO QDAY #30 tablet 02/04/20 Unknown Rx Tamsulosin [Flomax] 0.4 mg PO HS #30 capsule 02/04/20 Unknown Rx levoFLOXacin [Levaquin TAB] 500 mg PO Q24HR #3 tablet 02/04/20 Unknown Rx Allergies/Adverse Reactions: Allergies Allergy/AdvReac Type Severity Reaction Status Date / Time No Known Allergies Allergy Unverified 04/16/13 21:15 ED Review of Systems ROS: Stated complaint: HEADACHE/BODY ACHE Other details as noted in HPI Constitutional: malaise. denies: fever Eyes: denies: eye discharge ENT: congestion Respiratory: cough, shortness of breath Cardiovascular: denies: chest pain Gastrointestinal: denies: abdominal pain Musculoskeletal: myalgia Neurological: headache, weakness, abnormal gait, vertigo Hematological/Lymphatic: denies: easy bleeding ED Past Medical Hx - Past Medical History Previous Medical History?: Yes Hx Hypertension: Yes (non-compliance) Hx CVA: Yes Hx Heart Attack/AMI: Yes (x5) Hx Congestive Heart Failure: No Hx Diabetes: No Hx Deep Vein Thrombosis: No Hx Pulmonary Embolism: No Hx Asthma: No Hx COPD: No Hx Tuberculosis: No Hx HIV: No - Surgical History Past Surgical History?: No Hx Coronary Stent: No Hx Pacemaker: No Hx Internal Defibrillator: No - Social History Smoking Status: Never Smoker Substance Use Type: None - Medications Home Medications: Home Medications Medication Instructions Recorded Confirmed Last Taken Type Aspirin EC [Halfprin EC] 81 mg PO QDAY #90 tablet. 02/04/20 Unknown Rx AtorvaSTATin [Lipitor] 40 mg PO QHS #30 tablet 02/04/20 Unknown Rx Clopidogrel [Plavix] 75 mg PO QDAY #90 tablet 02/04/20 Unknown Rx Diclofenac 1% [Diclofenac 1% 1 applic TP TID tube 02/04/20 Unknown Rx topical gel] NIFEdipine XL [Procardia Xl] 60 mg PO Q12HR #60 tablet 02/04/20 Unknown Rx Nicotine [Habitrol] 14 mg TD QDAY #30 patch 02/04/20 Unknown Rx Pantoprazole [Protonix TAB] 40 mg PO QDAY #30 tablet 02/04/20 Unknown Rx Tamsulosin [Flomax] 0.4 mg PO HS #30 capsule 02/04/20 Unknown Rx levoFLOXacin [Levaquin TAB] 500 mg PO Q24HR #3 tablet 02/04/20 Unknown Rx ED Neuro Physical Exam - General Limitations: No Limitations, Physical Limitation General appearance: alert, in no apparent distress Suspected Stroke: Yes - Head Head exam: Present: atraumatic, normocephalic - Eye Eye exam: Present: normal appearance, PERRL, EOMI, nystagmus (There is multidirectional nystagmus noted) - ENT ENT exam: Present: normal exam, mucous membranes moist, normal external ear exam, other (Patient has poor dentition) - Neck Neck exam: Present: normal inspection, full ROM. Absent: tenderness, meningismus - Respiratory Respiratory exam: Present: normal lung sounds bilaterally. Absent: respiratory distress, wheezes, rales, rhonchi, stridor, decreased breath sounds - Cardiovascular Cardiovascular Exam: Present: normal rhythm, tachycardia, normal heart sounds. Absent: bradycardia, irregular rhythm, systolic murmur, diastolic murmur, rubs, gallop - GI/Abdominal GI/Abdominal exam: Present: soft. Absent: distended, tenderness, guarding, rebound, rigid, pulsatile mass - Rectal Rectal exam: Present: deferred - Extremities Exam Extremities exam: Present: normal inspection, full ROM, other (2+ pulses noted in the bilateral upper and lower extremities. There is no palpable cord. negative Homans sign. Muscular compartments are soft. The pelvis is stable.). Absent: pedal edema, calf tenderness - Back Exam Back exam: Present: normal inspection. Absent: tenderness, CVA tenderness (R), CVA tenderness (L), paraspinal tenderness, vertebral tenderness - Neurological Exam Neurological exam: Present: alert (Extraocular movements are intact. Tongue is midline. There is multidirectional nystagmus noted.), oriented X3, other (There is 5 out of 5 strength in the bilateral upper and lower extremities. Sensation is intact to light touch in 4 extremities. There is past-pointing in the bilateral upper extremities. There is no facial droop. The tongue is midline. Hearing is intact. Shoulder shrug is intact. ) - NIHSS Assessment Interval: Baseline 1a. Level of Consciousness: alert/keenly responsive 1b. LOC Questions: answers both correctly 1c. LOC Commands: performs tasks correctly 2. Best Gaze: normal 3. Visual: no visual loss 4. Facial Palsy: normal symmetrical movement 5b. Motor Arm Right: drift 5a. Motor Arm Left: drift 6a. Motor Leg Left: no drift 6b. Motor Leg Right: no drift 7. Limb Ataxia: present 2 limbs 8. Sensory: normal 9. Best Language: no aphasia 10. Dysarthria: normal 11. Extinction/Inattention: no abnormality Total Score: 4 Stroke Severity: Minor Stroke - Psychiatric Psychiatric exam: Present: normal affect, normal mood - Skin Skin exam: Present: warm, dry, intact, normal color. Absent: rash ED Course Vital Signs 08/08/20 08/08/20 08/08/20 12:59 18:43 21:31 Temperature 98.0 F 97.5 F L Pulse Rate 111 H 110 H 89 Respiratory 17 19 16 Rate Blood Pressure 78/48 112/76 Blood Pressure [Right] O2 Sat by Pulse 91 92 Oximetry 08/08/20 08/08/20 08/08/20 21:35 21:36 21:45 Temperature Pulse Rate 91 H 90 Respiratory 17 16 13 Rate Blood Pressure 147/102 Blood Pressure 147/102 [Right] O2 Sat by Pulse 91 95 91 Oximetry 08/08/20 08/08/20 08/08/20 22:00 22:15 22:31 Temperature Pulse Rate 95 H 91 H 97 H Respiratory 11 L 11 L 15 Rate Blood Pressure 139/104 139/104 139/104 Blood Pressure [Right] O2 Sat by Pulse 92 91 92 Oximetry 08/08/20 08/08/20 08/08/20 22:45 23:00 23:15 Temperature Pulse Rate 99 H 99 H 97 H Respiratory 14 15 11 L Rate Blood Pressure 139/104 139/94 139/94 Blood Pressure [Right] O2 Sat by Pulse 92 91 91 Oximetry 08/08/20 23:31 Temperature Pulse Rate 95 H Respiratory 15 Rate Blood Pressure 139/94 Blood Pressure [Right] O2 Sat by Pulse 95 Oximetry - Reevaluation(s) Reevaluation #1: 08/08/20 21:43 Differential diagnosis, including but not limited to: Subacute stroke, migraine headache, tension headache, cluster headache, sequelae of old stroke, peripheral vertigo, central vertigo Assessment and plan: 64-year-old gentleman with headache intermittently for a few months, worsened over the past week, with a complaint of feeling off balance. He has a GCS of 15 at this time. He is clinically sober at this time. Subacute symptoms/resenting symptoms to this emergency room have been present for about a week. Symptoms present for greater than 4.5 hours, therefore not a TPA candidate. Symptoms present for greater than 24 hours, and examination not suggestive of large vessel occlusion, therefore, emergent CT angiogram of head and neck not indicated. Patient was also initially hypotensive and tachycardic upon triage. It may be a component of volume depletion and orthostasis here. However, on my exam, he does have multidirectional nystagmus. I reviewed his old discharge summary from January, it was recommended that he follow-up with an outpatient stone setter metal optical frames, which he has not done, prism glasses were also recommended, and he states he does not wear glasses. The patient is unfortunately also illiterate, and states he is not able to read. I will treat his symptoms, and obtain expert neurologic consultation. Patient amenable to admission/hospitalization, if necessary. Given lack of ability to follow-up, multidirectional nystagmus, clinical ambiguity at this time, I presume that patient will be admitted for further diagnostic work-up and advanced imaging, after neurology consultation. Reevaluation #2: 08/09/20 00:27 As expected, neurology service has recommended admission to exclude subacute stroke. Hospital physician, Dr. Ebony Benjamin to admit - Lab Data Result diagrams: 08/08/20 14:20 08/08/20 14:20 Lab Results 08/08/20 08/08/20 08/08/20 Range/Units 14:20 14:20 22:28 WBC 5.8 (4.5-11.0) K/mm3 RBC 4.43 (3.65-5.03) M/mm3 Hgb 14.2 (11.8-15.2) gm/dl Hct 41.6 (35.5-45.6) % MCV 94 (84-94) fl MCH 32 (28-32) pg MCHC 34 (32-34) % RDW 13.1 L (13.2-15.2) % Plt Count 312 (140-440) K/mm3 Lymph % (Auto) 15.8 (13.4-35.0) % [place] % (Auto) 12.8 H (0.0-7.3) % Eos % (Auto) 7.3 H (0.0-4.3) % Baso % (Auto) 0.6 (0.0-1.8) % Lymph # (Auto) 0.9 L (1.2-5.4) K/mm3 [place] # (Auto) 0.7 (0.0-0.8) K/mm3 Eos # (Auto) 0.4 (0.0-0.4) K/mm3 Baso # (Auto) 0.0 (0.0-0.1) K/mm3 Seg Neutrophils % 63.5 (40.0-70.0) % Seg Neutrophils # 3.7 (1.8-7.7) K/mm3 Sodium 138 (137-145) mmol/L Potassium 4.3 (3.6-5.0) mmol/L Chloride 101.5 (98-107) mmol/L Carbon Dioxide 29 (22-30) mmol/L Anion Gap 12 mmol/L BUN 15 (9-20) mg/dL Creatinine 1.4 H (0.8-1.3) mg/dL Estimated GFR 51 ml/min BUN/Creatinine Ratio 11 % Glucose 85 (75-100) mg/dL POC Glucose 79 (70-105) mg/dL Calcium 9.3 (8.4-10.2) mg/dL Urine Color (Yellow) Urine Turbidity (Clear) Urine pH (5.0-7.0) Ur Specific [place] (1.003-1.030) Urine Protein (Negative) mg/dL Urine Glucose (UA) (Negative) mg/dL Urine Ketones (Negative) mg/dL Urine Blood (Negative) Urine Nitrite (Negative) Urine Bilirubin (Negative) Urine Urobilinogen (<2.0) mg/dL Ur Leukocyte Esterase (Negative) Urine WBC (Auto) (0.0-6.0) /HPF Urine RBC (Auto) (0.0-6.0) /HPF U Epithel Cells (Auto) (0-13.0) /HPF Hyaline Casts /LPF Urine Mucus /HPF 08/08/ Range/Units 23:24 WBC (4.5-11.0) K/mm3 RBC (3.65-5.03) M/mm3 Hgb (11.8-15.2) gm/dl Hct (35.5-45.6) % MCV (84-94) fl MCH (28-32) pg MCHC (32-34) % RDW (13.2-15.2) % Plt Count (140-440) K/mm3 Lymph % (Auto) (13.4-35.0) % [place] % (Auto) (0.0-7.3) % Eos % (Auto) (0.0-4.3) % Baso % (Auto) (0.0-1.8) % Lymph # (Auto) (1.2-5.4) K/mm3 [place] # (Auto) (0.0-0.8) K/mm3 Eos # (Auto) (0.0-0.4) K/mm3 Baso # (Auto) (0.0-0.1) K/mm3 Seg Neutrophils % (40.0-70.0) % Seg Neutrophils # (1.8-7.7) K/mm3 Sodium (137-145) mmol/L Potassium (3.6-5.0) mmol/L Chloride (98-107) mmol/L Carbon Dioxide (22-30) mmol/L Anion Gap mmol/L BUN (9-20) mg/dL Creatinine (0.8-1.3) mg/dL Estimated GFR ml/min BUN/Creatinine Ratio % Glucose (75-100) mg/dL POC Glucose (70-105) mg/dL Calcium (8.4-10.2) mg/dL Urine Color [place] (Yellow) Urine Turbidity Clear (Clear) Urine pH 5.0 (5.0-7.0) Ur Specific [place] 1.023 (1.003-1.030) Urine Protein 30 mg/dl (Negative) mg/dL Urine Glucose (UA) Neg (Negative) mg/dL Urine Ketones Neg (Negative) mg/dL Urine Blood Neg (Negative) Urine Nitrite Neg (Negative) Urine Bilirubin Neg (Negative) Urine Urobilinogen 4.0 (<2.0) mg/dL Ur Leukocyte Esterase Neg (Negative) Urine WBC (Auto) 2.0 (0.0-6.0) /HPF Urine RBC (Auto) 12.0 (0.0-6.0) /HPF U Epithel Cells (Auto) 1.0 (0-13.0) /HPF Hyaline Casts 6 /LPF Urine Mucus 3+ /HPF Vital Signs 08/08/20 08/08/20 12:59 18:43 Temperature 98.0 F 97.5 F L Pulse Rate 111 H 110 H Respiratory 17 19 Rate Blood Pressure 78/48 112/76 O2 Sat by Pulse 91 92 Oximetry - EKG Data -: EKG Interpreted by [place] EKG shows normal: sinus rhythm Rate: normal 08/08/20 21:47 Sinus rhythm, 99 bpm, leftward axis deviation, QTC 405 ms, poor R wave progression. Low voltage in the inferior leads. Abnormal EKG. No STEMI. - Radiology Data Radiology results: pending, report reviewed, image reviewed Print Report Referring Physician: LEAH FAJARDO Patient Name: LEIF VALDEZ Date of : 1955 Sex: Male Report Date: 2020-08-08 Report Status: Finalized Findings [facility] [address] [place] [address] Cat Scan Report Signed Patient: LEIF VALDEZ MR#: [id number] : 1955 Acct:[id number] Age/Sex: 64 / M ADM Date: 08/08/20 Loc: ED Attending Dr: Ordering Physician: OLLIE RIVERA Date of Service: 08/08/20 Procedure(s): CT head/brain wo con Accession Number(s): [id number] cc: OLLIE RIVERA CT head/brain wo con INDICATION / CLINICAL INFORMATION: 64 years Male; dizziness/headache. TECHNIQUE: Routine CT head without contrast. All CT scans at this location are performed using CT dose reduction for ALARA by means of automated exposure control. COMPARISON: None. FINDINGS: BRAIN / INTRACRANIAL CONTENTS: There is continued moderate cerebral white matter disease most consistent with microvascular angiopathy. Additionally, there are old small lacunar infarcts involving the basal ganglia and galindo radiata. There is no CT ends of acute intracranial hemorrhage or significant mass effect. There is mild cerebral atrophy. The ventricular system remains appropriate in size and configuration. ORBITS: No significant abnormality of visualized orbits. SINUSES / MASTOIDS: No significant abnormality in the visualized paranasal sinuses or mastoid air cells. CRANIOCERVICAL JUNCTION: No significant abnormality. ADDITIONAL FINDINGS: None. IMPRESSION: 1. This continued microvascular angiopathy and old small lacunar infarcts as described without CT evidence of acute intracranial hemorrhage. S igner Name: Robbie Seals MD Signed: 08/08/2020 6:02 PM Workstation Name: [id number] Transcribed By: MR Dictated By: Robbie Seals MD Electronically Authenticated By: Robbie Seals MD Signed Date/Time: 08/08/201801 DD/ 55 TD/TT: - Core Measures Measure Exclusions: not indicated - Thrombolytic Inclusion/Exclusion Thrombolytic Exclusion Criteria: Symptom Onset > 3 Hours Critical care attestation.: If time is entered above; I have spent that time in minutes in the direct care of this critically ill patient, excluding procedure time. ED Disposition Clinical Impression: Headache, Dizziness, Nystagmus, History of hypotension, Cough Disposition: OP ADMIT IP TO THIS HOSP Is pt being admited?: Yes Condition: Stable Referrals: PRIMARY CARE, [Primary Care Provider] - 3-5 Days
[2020-08-08] MEDS ORDERED: METOCLOPRAMIDE 10 MG/2 ML INJ IV ONE (21:38)
[2020-08-08] MEDS ORDERED: diphenhydrAMINE 50 MG/ML VIAL IV ONE (21:38)
[2020-08-08] MEDS ORDERED: MECLIZINE 25 MG TAB PO ONE (21:38)
[2020-08-08] MEDS ORDERED: LACTATED RINGERS 1,000 ML IV ONE (21:38)
[2020-08-08] MEDS ORDERED: ASPIRIN 81 MG TAB CHEW PO ONE (21:38)
--- NOTE | 2020-08-08 21:57 | Consultation ---
Medications and Allergies Allergies Allergy/AdvReac Type Severity Reaction Status Date / Time No Known Allergies Allergy Unverified 04/16/13 21:15 Home Medications Medication Instructions Recorded Confirmed Last Taken Type Aspirin EC [Halfprin EC] 81 mg PO QDAY #90 tablet. 02/04/20 Unknown Rx AtorvaSTATin [Lipitor] 40 mg PO QHS #30 tablet 02/04/20 Unknown Rx Clopidogrel [Plavix] 75 mg PO QDAY #90 tablet 02/04/20 Unknown Rx Diclofenac 1% [Diclofenac 1% 1 applic TP TID tube 02/04/20 Unknown Rx topical gel] NIFEdipine XL [Procardia Xl] 60 mg PO Q12HR #60 tablet 02/04/20 Unknown Rx Nicotine [Habitrol] 14 mg TD QDAY #30 patch 02/04/20 Unknown Rx Pantoprazole [Protonix TAB] 40 mg PO QDAY #30 tablet 02/04/20 Unknown Rx Tamsulosin [Flomax] 0.4 mg PO HS #30 capsule 02/04/20 Unknown Rx levoFLOXacin [Levaquin TAB] 500 mg PO Q24HR #3 tablet 02/04/20 Unknown Rx Active Meds: Active Medications Lactated Ringer's (Lactated Ringers) 1,000 mls @ 999 mls/hr IV BOLUS ONE Stop: 08/08/20 22:38 Physical Examination - Vital Signs Vital Signs: Vital Signs Temp Pulse Resp BP Pulse Ox 98.0 F 111 H 17 78/48 91 08/08/20 12:59 08/08/20 12:59 08/08/20 12:59 08/08/20 12:59 08/08/20 12:59 Results - Laboratory Findings CBC and BMP: 08/08/20 14:20 08/08/20 14:20 Abnormal Lab Findings: Abnormal Labs 08/08/20 08/08/20 14:20 14:20 RDW 13.1 L [place] % (Auto) 12.8 H Eos % (Auto) 7.3 H Lymph # (Auto) 0.9 L Creatinine 1.4 H Assessment and Plan [facility] Tele[facility]urology Consult Services Stat Consult Date of Service: 08/08/2020 21:28:12 Impression: R42 - Dizziness/ Vertigo/ Giddiness Comments/Sign-Out: Patient with history of COPD, hypertension, stroke (12/2019 right posterior lateral medulla), right vertebral artery occlusion. Presents with headache, dizziness. Head CT: No acute Intracranial hemorrhage. Etiology for Symptoms/presentation is unclear, could be peripheral vertigo, Post-stroke Recrudescence or new ischemic stroke. Last time known well>24 hours therefore not a candidate for Thrombolysis or Endovascular treatment. Will be admitted for stroke workup. CT HEAD: Reviewed Metrics: [employer] Notification Time: 08/08/2020 21:26:45 Stamp Time: 08/08/2020 21:28:12 Callback Response Time: 08/08/2020 21:28:57 Video Start Time: 08/08/2020 21:47:00 Video End Time: 08/08/2020 21:56:11 Our recommendations are outlined below. Recommendations: Antiplatelet Therapy orthostatic vital signs Imaging Studies: MRI Head Without Contrast Therapies: Physical Therapy Disposition: Neurology Follow Up Recommended Sign Out: Discussed with Emergency Department Provider Chief Complaint: dizziness History of Present Illness: Patient is a 64 year old Male. Patient with history of COPD, hypertension, stroke (12/2019 right posterior lateral medulla), right vertebral artery occlusion. Presents with headache and dizziness and feeling off balance for a week. No double vision. States moving around or moving the head triggers a funny feeling Anticoagulation or Antiplatelet use: Chart reviewed for Pertinent medical, surgical, family history. Chart reviewed for Medications list and allergies. Pertinent positive and negative review of systems noted in History of Present Illness. Past Medical History: Hypertension Stroke Anticoagulant use: No Antiplatelet use: aspirin and plavix Examination: BP(147/102), Pulse(91), Blood Glucose(85) Neuro Exam: General: Alert,Awake, Oriented Speech: Fluent: Language: Intact: Extraocular Movements: Intact: Motor Exam: no drift in arms Coordination: Dysmetria: RUE Patient/Family was informed the Neurology Consult would happen via Tele[facility] co nsult by way of interactive audio and video telecommunications and consented to receiving care in this manner. Due to the immediate potential for life-threatening deterioration due to underlying acute neurologic illness, I spent 9 minutes providing critical care. This time includes time for face to face visit via telemedicine, review of medical records, imaging studies and discussion of findings with providers, the patient and/or family. Dr Daniel Isabel [facility] Case [id number]
--- NOTE | 2020-08-08 22:29 | XRay Report ---
CHEST 1 VIEW INDICATION: MAIN. Cough and shortness of breath for the past week COMPARISON: 01/28/2020 FINDINGS: SUPPORT DEVICES: None. HEART: Within normal limits. LUNGS/PLEURA: No acute air space or interstitial disease. ADDITIONAL FINDINGS: None. IMPRESSION: 1. No acute findings. Signer Name: Hernando Allen MD Signed: 08/08/2020 10:25 PM Workstation Name: [id number]
[2020-08-08] MEDS ORDERED: DEXTROSE 50% IN WATER (25GM) 50 ML SYRINGE IV ONE (23:00)
[2020-08-08 23:43] LABS: Bilirubin,Urine NEG (Negative); Blood,Urine NEG (Negative); Color,Urine Amber (Yellow); Hyaline Casts,Urine 6 /LPF; Mucus,Urine 3+ /HPF
[2020-08-09] MEDS ORDERED: METOCLOPRAMIDE 10 MG TAB PO PRN (00:32)
[2020-08-09] MEDS ORDERED: PROMETHAZINE 25 MG RECT SUPP PR PRN (00:32)
[2020-08-09] MEDS ORDERED: ONDANSETRON 4 MG/2 ML INJ IV PRN (00:32)
[2020-08-09] MEDS ORDERED: MAGNESIUM HYDROXIDE (MOM) ORAL LIQD UDC PO PRN (00:32)
[2020-08-09] MEDS ORDERED: MORPHINE 2 MG/1 ML INJ IV PRN (00:32)
[2020-08-09] MEDS ORDERED: ACETAMINOPHEN 325 MG TAB PO PRN ×2 (00:32)
--- NOTE | 2020-08-09 00:47 | History and Physical Report ---
History of Present Illness Date of examination: 08/09/20 Date of admission: 08/09/2020 Chief complaint: Headache Dizziness History of present illness: 64-year-old male with known history of CVA, bipolar disorder, COPD, hypertension presenting to the emergency room today complaining of headache and dizziness and having unsteady gait for about 1 week. Headache is said to be frontal and at times left-sided. He has had intermittent unsteady gait which has gotten worse over the past few days. He also indicates that he has had blurry vision. He denies any fever or chills, no chest pain, no shortness of breath, no nausea vomiting, no abdominal pain. Patient denies any weakness or tingling sensation in any extremities. Patient was seen in January this year having been admitted for stroke. He was found to have a conjugate gaze at that time and outpatient prism glasses were recommended and also follow-up with neurology on outpatient basis was also recommended. Work-up in the emergency room today CT scan of the head reveals: microvascular angiopathy and old small lacunar infarcts. No CT evidence of acute intracranial hemorrhage. Patient was evaluated by tele-neurologist. Recommendation is to have patient worked up for CVA. Past History Past Medical History: CAD (With [place] x5 in the past), COPD, hypertension, stroke Past Surgical History: No surgical history Social history: smoking (Former smoker) Family history: no significant family history Medications and Allergies Allergies Allergy/AdvReac Type Severity Reaction Status Date / Time No Known Allergies Allergy Unverified 04/16/13 21:15 Home Medications Medication Instructions Recorded Confirmed Last Taken Type Aspirin EC [Halfprin EC] 81 mg PO QDAY #90 tablet. 02/04/20 Unknown Rx AtorvaSTATin [Lipitor] 40 mg PO QHS #30 tablet 02/04/20 Unknown Rx Clopidogrel [Plavix] 75 mg PO QDAY #90 tablet 02/04/20 Unknown Rx Diclofenac 1% [Diclofenac 1% 1 applic TP TID tube 02/04/20 Unknown Rx topical gel] NIFEdipine XL [Procardia Xl] 60 mg PO Q12HR #60 tablet 02/04/20 Unknown Rx Nicotine [Habitrol] 14 mg TD QDAY #30 patch 02/04/20 Unknown Rx Pantoprazole [Protonix TAB] 40 mg PO QDAY #30 tablet 02/04/20 Unknown Rx Tamsulosin [Flomax] 0.4 mg PO HS #30 capsule 02/04/20 Unknown Rx levoFLOXacin [Levaquin TAB] 500 mg PO Q24HR #3 tablet 02/04/20 Unknown Rx Active Meds: Active Medications Acetaminophen (Acetaminophen 325 Mg Tab) 650 mg PO Q4H PRN PRN Reason: Pain, Mild (1-3) Acetaminophen (Acetaminophen 325 Mg Tab) 650 mg PO Q4H PRN PRN Reason: Pain MILD(1-3)/Fever >100.5/CHRISTIANSEN Aspirin (Aspirin 325 Mg Tab) 325 mg PO QDAY PRANE[facility] Atorvastatin Calcium (Atorvastatin 40 Mg Tab) 40 mg PO QHS PRANE[facility] Bisacodyl (Bisacodyl 10 Mg Rect Supp) 10 mg [place] QDAY PRN PRN Reason: Constipation Magnesium Hydroxide (Magnesium Hydroxide (Mom) Oral Liqd Udc) 30 ml PO Q4H PRN PRN Reason: Constipation Metoclopramide HCl (Metoclopramide 10 Mg Tab) 10 mg PO Q6H PRN PRN Reason: Nausea And Vomiting Ondansetron HCl (Ondansetron 4 Mg/2 Ml Inj) 4 mg IV Q8H PRN PRN Reason: Nausea And Vomiting Promethazine HCl (Promethazine 25 Mg Rect Supp) 25 mg [place] Q6H PRN PRN Reason: Nausea And Vomiting Sodium Chloride (Sodium Chloride 0.9% 10 Ml Flush Syringe) 10 ml INJ PRN PRN PRN Reason: LINE FLUSH Sodium Chloride (Sodium Chloride 0.9% 10 Ml Flush Syringe) 10 ml IV BID PRANEETH Sodium Chloride (Sodium Chloride 0.9% 10 Ml Flush Syringe) 10 ml IV PRN PRN PRN Reason: LINE FLUSH Review of Systems Constitutional: no fever, no chills Ears, nose, mouth and throat: no nasal congestion, no sore throat Cardiovascular: no chest pain, no palpitations Respiratory: cough, no shortness of breath Gastrointestinal: no abdominal pain, no nausea, no vomiting, no diarrhea Genitourinary Male: no dysuria, no hematuria, no nocturia Musculoskeletal: no neck pain, no low back pain Integumentary: no rash, no pruritis Neurological: headaches, balance difficulties, other (Dizziness), no confusion Psychiatric: no anxiety, no depression Exam - Constitutional Vitals: Temp Pulse Resp BP Pulse Ox 97.5 F L 95 H 15 139/94 95 08/08/20 18:43 12/22/20 23:31 08/08/20 23:31 08/08/20 23:31 08/08/20 23:31 General appearance: Present: no acute distress, well-nourished - EENT Eyes: Present: PERRL, EOM intact. Absent: scleral icterus ENT: hearing intact, clear oral mucosa, dentition normal, poor dentition - Neck Neck: Present: supple, normal ROM - Respiratory Respiratory effort: normal Respiratory: bilateral: CTA - Cardiovascular Rhythm: regular Heart Sounds: Present: S1 & S2, diastolic murmur. Absent: gallop, systolic murmur, rub - Extremities Extremities: no ischemia, pulses intact, pulses symmetrical, No edema, Full ROM Peripheral Pulses: within normal limits - Abdominal General gastrointestinal: Present: soft, non-tender, non-distended, normal bowel sounds. Absent: mass - Integumentary Integumentary: Present: clear, warm, dry. Absent: rash - Musculoskeletal Musculoskeletal: strength equal bilaterally - Psychiatric Psychiatric: appropriate mood/affect, intact judgment & insight, memory intact, cooperative - Neurologic Neurologic: CNII-XII intact, no focal deficits, moves all extremities Results - Labs CBC & Chem 7: 08/08/20 14:20 08/08/20 14:20 Labs: Abnormal lab results 08/08/20 08/08/20 Range/Units 14:20 14:20 RDW 13.1 L (13.2-15.2) % [place] % (Auto) 12.8 H (0.0-7.3) % Eos % (Auto) 7.3 H (0.0-4.3) % Lymph # (Auto) 0.9 L (1.2-5.4) K/mm3 Creatinine 1.4 H (0.8-1.3) mg/dL Assessment and Plan - Patient Problems (1) CVA (cerebral vascular accident) Current Visit: No Status: Acute Plan to address problem: Patient has known history of CVA. Unclear whether he is having a new episode. We will admit to telemetry and scheduled for carotid Doppler and MRI of the brain. Patient started on daily aspirin and statin. We will place consult to neurology for evaluation. (2) Headache Current Visit: Yes Status: Acute Plan to address problem: Place patient on analgesic medication as needed. (3) HTN (hypertension) Current Visit: No Status: Chronic Plan to address problem: We will resume routine home medications and monitor vital signs closely. (4) DVT prophylaxis Current Visit: No Status: Acute Plan to address problem: Patient placed on subcutaneous heparin. (5) Full code status Current Visit: No Status: Acute Plan to address problem: Patient is a full code.
[2020-08-09] MEDS: HEPARIN 5,000 UNIT/1 ML VIAL SUB-Q SCH ×3 (05:40→22:32)
[2020-08-09] MEDS: ASPIRIN 325 MG TAB PO SCH (09:36)
--- NOTE | 2020-08-09 12:48 | Vascular Lab Report ---
VL carotid duplex BILAT INDICATION / CLINICAL INFORMATION: stroke COMPARISON: 01/14/2020 FINDINGS: RIGHT CAROTID: - CCA velocity: 122 cm/sec. - ICA peak systolic velocity: 113 cm/sec. - ICA/CCA PSV Ratio: Less than 2 Right Vertebral Artery: Antegrade flow. LEFT CAROTID: - CCA velocity: 143 cm/sec. - ICA peak systolic velocity: 109 cm/sec. - ICA/CCA PSV Ratio: Less than 2 Left Vertebral Artery: Antegrade flow. IMPRESSION: 1. Mild atherosclerosis. No occlusion or hemodynamically significant stenosis of the bilateral caroti d arteries. Velocity criteria are extrapolated from diameter data as defined by the Society of Radiologists in Ul trasound Consensus Conference, Radiology 2003; 229;340-346. NO STENOSIS (NORMAL) * Plaque = none; ICA PSV < 125 cm/sec; ICA/CCA PSV Ratio < 2.0 <50% STENOSIS * Plaque < 50%; ICA PSV < 125 cm/sec; ICA/CCA PSV Ratio < 2.0 50-69% STENOSIS * Plaque > 50%; ICA PSV = 125-230 cm/sec; ICA/CCA PSV Ratio = 2.0-4.0 >70% BUT <100% STENOSIS * Plaque > 50%; ICA PSV > 230 cm/sec; ICA/CCA PSV Ratio > 4.0 NEAR OCCLUSION * Plaque = visible lumen; ICA PSV = high/low/none; ICA/CCA PSV Ratio = variable TOTAL OCCLUSION * Plaque = no lumen; ICA PSV = none; ICA/CCA PSV Ratio = N/A Signer Name: Pro Helm MD Signed: 08/09/2020 12:43 PM Workstation Name: [id number]
--- NOTE | 2020-08-09 14:58 | Magnetic Resonance Report ---
MRI BRAIN WITHOUT CONTRAST INDICATION / CLINICAL INFORMATION: Headache and dizziness. TECHNIQUE: Multiplanar, multisequence MR images of the brain were obtained. COMPARISON: Head CT 08/08/2020 FINDINGS: BRAIN / INTRACRANIAL CONTENTS: Ventricles and cortical sulci are normal in size and configuration. Th ere is no mass effect. No evidence of intracranial hemorrhage or extra-axial fluid collection is seen . Mild periventricular and scattered small deep white matter hyperintensities are demonstrated consis tent with microvascular ischemic change. Incidental note is made of dilated perivascular spaces in a bilateral gangliocapsular distribution. No additional areas of abnormal brain parenchymal signal inte nsity are identified. There is no indication of remote cortical infarction. Diffusion weighted scans are negative. There is no indication of acute ischemic injury. The brainstem and cerebellum have an unremarkable appearance. MIDLINE STRUCTURES:No abnormalities are seen to involve the pituitary gland. Pineal region has an unr emarkable appearance. CRANIOCERVICAL JUNCTION: No abnormalities are identified at the craniocervical junction. VASCULAR FLOW-VOIDS: Normal flow-voids are present within the major intracranial vessels. ORBITS: The orbits have an unremarkable appearance. SINUSES / MASTOIDS: There is no indication of inflammatory disease in the paranasal sinuses. Inflamma tory changes or fluid is observed in the right-sided mastoid air cells consistent with mastoid effusi ons versus mastoiditis. Following the administration of intravenous contrast enhancement of normal va scular structures is demonstrated. No areas of abnormal contrast enhancement are identified. IMPRESSION: 1. Mild microvascular ischemic changes in the white matter of both cerebral hemispheres. 2. Otherwise normal MRI brain without contrast. Signer Name: Callum Lima MD Signed: 08/09/2020 2:54 PM Workstation Name: [id number]
--- NOTE | 2020-08-09 17:18 | Consultation ---
History of Present Illness Consult date: 08/09/20 Requesting physician: NIYAH SOLIS Reason for Consult: R/O CVA Chief complaint: Headache, dizziness History of present illness: 64 yo male with stroke (w/ ?residual vs. at the time of last stroke admission - weakness w/ dysconjugate gaze w/ ataxia (per ED note)), htn, copd, cadx, who presents to the ED w/ noted headache ("all over the head"; initially 12 but now 2/; no photosensitivity; no phonosensitivity) w/ associated vertigo ("room is not stable") that started over the last few days (unknown exact onset time). Patient notes he has "bad memory". In the ED, he reported feeling off balance since the last stroke but has worsened over the last week. He denies any acute: nausea, emesis, changes in his primary senses, focal weakness/numbness/tingling, loss of consciousness or change of consciousness. Notes difficulty with his memory began a long time ago. Notes occasional accidents w/ urination that began recently in the last week. He notes worsening cough lately. Past History Past Medical History: CAD (With [place] x5 in the past), COPD, hypertension, stroke Past Surgical History: No surgical history Social history: smoking (Former smoker) Family history: no significant family history Medications and Allergies Allergies Allergy/AdvReac Type Severity Reaction Status Date / Time No Known Allergies Allergy Unverified 04/16/13 21:15 Home Medications Medication Instructions Recorded Confirmed Last Taken Type Aspirin EC [Halfprin EC] 81 mg PO QDAY #90 tablet. 02/04/20 Unknown Rx AtorvaSTATin [Lipitor] 40 mg PO QHS #30 tablet 02/04/20 Unknown Rx Clopidogrel [Plavix] 75 mg PO QDAY #90 tablet 02/04/20 Unknown Rx Diclofenac 1% [Diclofenac 1% 1 applic TP TID tube 02/04/20 Unknown Rx topical gel] NIFEdipine XL [Procardia Xl] 60 mg PO Q12HR #60 tablet 02/04/20 Unknown Rx Nicotine [Habitrol] 14 mg TD QDAY #30 patch 02/04/20 Unknown Rx Pantoprazole [Protonix TAB] 40 mg PO QDAY #30 tablet 02/04/20 Unknown Rx Tamsulosin [Flomax] 0.4 mg PO HS #30 capsule 02/04/20 Unknown Rx levoFLOXacin [Levaquin TAB] 500 mg PO Q24HR #3 tablet 02/04/20 Unknown Rx Active Meds: Active Medications Acetaminophen (Acetaminophen 325 Mg Tab) 650 mg PO Q4H PRN PRN Reason: Pain MILD(1-3)/Fever >100.5/CHRISTIANSEN Aspirin (Aspirin 325 Mg Tab) 325 mg PO QDAY [facility] Last Admin: 08/09/20 09:36 Dose: 325 mg Documented by: Atorvastatin Calcium (Atorvastatin 40 Mg Tab) 40 mg PO QHS [facility] Bisacodyl (Bisacodyl 10 Mg Rect Supp) 10 mg [place] QDAY PRN PRN Reason: Constipation Heparin Sodium (Porcine) (Heparin 5,000 Unit/1 Ml Vial) 5,000 unit SUB-Q Q8HR [facility] Last Admin: 08/09/20 14:13 Dose: 5,000 unit Documented by: Magnesium Hydroxide (Magnesium Hydroxide (Mom) Oral Liqd Udc) 30 ml PO Q4H PRN PRN Reason: Constipation Metoclopramide HCl (Metoclopramide 10 Mg Tab) 10 mg PO Q6H PRN PRN Reason: Nausea And Vomiting Morphine Sulfate (Morphine 2 Mg/1 Ml Inj) 2 mg IV Q4H PRN PRN Reason: Pain, Moderate (4-6) Ondansetron HCl (Ondansetron 4 Mg/2 Ml Inj) 4 mg IV Q8H PRN PRN Reason: Nausea And Vomiting Promethazine HCl (Promethazine 25 Mg Rect Supp) 25 mg [place] Q6H PRN PRN Reason: Nausea And Vomiting Sodium Chloride (Sodium Chloride 0.9% 10 Ml Flush Syringe) 10 ml IV BID [facility] Last Admin: 08/09/20 09:36 Dose: 10 ml Documented by: Sodium Chloride (Sodium Chloride 0.9% 10 Ml Flush Syringe) 10 ml IV PRN PRN PRN Reason: LINE FLUSH Review of Systems All systems: negative (as per HPI;) Physical Examination - Vital Signs Vital Signs: Vital Signs Temp Pulse Resp BP Pulse Ox 98.0 F 111 H 17 78/48 91 08/08/20 12:59 08/08/20 12:59 08/08/20 12:59 08/08/20 12:59 08/08/20 12:59 - Physical Exam Narrative exam: Gen: nad, well-nourished; Head: normocephalic; Eyes: no gaze deviation; no ptosis; ENT: normal vocalization; CVS: warm and well-perfused; Pulm: no respiratory distress; GI: non-distended; Ext: no cyanosis at distal extremities; Skin: no acute rash at distal extremities; Heme: no pathologic bruising or ecchymosis at distal extremities; Neuro: alert, oriented to name, age, month, hospital, mild dysarthria, no aphasia, CN 2 - PERRL, visual auguste intact, CN 3, 4, 6 - EOMI, CN 5 - facial sensation symmetric to light touch, CN 7 - facial movement symmetric, CN 8 - hearing grossly intact, CN 9, 10 - uvula midline, CN 11 - shrug symmetric, CN 12 - tongue midline; Motor - at least 4-/5 at right exts and at least 4/5 at left exts; Sensory - light touch symmetric, Cerebellar - fnf intact w/ end point tremor; hts difficulty w/ L>R, Gait - deferred secondary to fall risk; NIHSS (1a.) Level of Consciousness:0 (1b.) LOC Questions:0 (1c.) LOC Commands:0 (2.) Best Gaze:0 (3.) Visual:0 (4.) Facial Palsy:0 (5a.) Motor Arm, Left:0 (5b.) Motor Arm, Right:0 (6a.) Motor Leg, Left:0 (6b.) Motor Leg, Right:0 (7.) Limb Ataxia:1 (8.) Sensory:0 (9.) Best Language:0 (10.) Dysarthria:1 (11.) Extinction and Inattention:0 NIHSS Total Score: 2 Results - Laboratory Findings CBC and BMP: 08/08/20 14:20 08/08/20 14:20 Abnormal Lab Findings: Abnormal Labs 08/08/20 08/08/20 14:20 14:20 RDW 13.1 L [place] % (Auto) 12.8 H Eos % (Auto) 7.3 H Lymph # (Auto) 0.9 L Creatinine 1.4 H Assessment and Plan 64 yo male with stroke (w/ ?residual vs. at the time of last stroke admission - weakness w/ dysconjugate gaze w/ ataxia (per ED note)), htn, copd, cadx, who presents to the ED w/ noted headache ("all over the head"; initially 12/10 but now 2/10; no photosensitivity; no phonosensitivity) w/ associated vertigo ("room is not stable") that started over the last few days (unknown exact onset time) with underlying memory issues and ?new onset urinary incontinence. 1. Recrudescence vs. Acute Ischemic Stroke (?posterior circulation) - ASA 325 mg PO qday (if no contraindication), MRI Brain w/ wo contrast, CTA Head/Neck w/ & w/o contrast (if GFR improves) o/w CUS, TTEcho, confirm LDL/HgbA1C/TSH, telemetry, SBP goal 160-200 mmHg and DBP 80-100 mmHg for now. Statin therapy for a goal LDL of 70, when patient passes swallow evaluation. PT/OT/ST/Swallow evaluation. Long-term risk-factor modification, including a strict diet/exercise regimen for secondary stroke prophylaxis. Rule out underlying infectious/inflammatory state, including COVID-19. 2. Coughs - increased frequency per pt; confirm COVID-19 status. 3. Hypertension - goal SBP 160-200 mmHg and DBP 80-100 mmHg for now. 4. Dysarthria / Dysphagia - st / swallow evaluation/monitoring. 5. Right-sided weakness - pt/ot evaluation/monitoring. 6. Unsteady Gait / Vertigo - pt/ot evaluation/monitoring. 7. Urinary Incontinence - non-acute in nature; outpatient neurology workup recommended. 8. Headache, NOS - MRI Brain w/ contrast (when GFR is improved); o/w almost resolved; conservative treatment. Glenn Bhakta MD Neurology
[2020-08-10] MEDS: NIFEdipine XL 60 MG TAB PO SCH ×3 (01:19→22:27)
[2020-08-10] MEDS: HEPARIN 5,000 UNIT/1 ML VIAL SUB-Q SCH ×3 (06:10→22:29)
[2020-08-10 06:19] LABS: Basophils % (Auto) 0.6 % (0.0-1.8); Eosinophils # (Auto) 0.5 K/mm3 (0.0-0.4); Eosinophils % (Auto) 8.5 % (0.0-4.3); Hematocrit 41.6 % (35.5-45.6); Lymphocytes # (Auto) 1.3 K/mm3 (1.2-5.4); Lymphocytes % (Auto) 21.8 % (13.4-35.0); Mean Corpuscular HGB Conc 34 % (32-34); Mean Corpuscular Volume 94 fl (84-94); Monocytes # (Auto) 0.7 K/mm3 (0.0-0.8); Monocytes % (Auto) 12.1 % (0.0-7.3); Platelet Count 287 K/mm3 (140-440); Red Blood Count 4.41 M/mm3 (3.65-5.03); Red Cell Distribution Width 12.7 % (13.2-15.2)
[2020-08-10 06:30] LABS: INR 1.05 (0.87-1.13)
[2020-08-10 06:45] LABS: BUN/Creatinine Ratio 15; Blood Urea Nitrogen 15 mg/dL (9-20); Chol/HDL Ratio 4.88 %; HDL Cholesterol 27 mg/dL (40-59); Hemolysis Index 11; LDL Cholesterol,Direct 91 mg/dL (50-130)
[2020-08-10] MEDS: ASPIRIN 325 MG TAB PO SCH (09:20)
--- NOTE | 2020-08-10 11:29 | Progress Note ---
Assessment and Plan Assessment and plan: 64-year-old male with known history of CVA, bipolar disorder, COPD, hypertension presenting to the emergency room today complaining of headache and dizziness and having unsteady gait for about 1 week. Headache is said to be frontal and at times left-sided. He has had intermittent unsteady gait which has gotten worse over the past few days. He also indicates that he has had blurry vision. He denies any fever or chills, no chest pain, no shortness of breath, no nausea vomiting, no abdominal pain. Patient denies any weakness or tingling sensation in any extremities. Patient was seen in January this year having been admitted for stroke. He was found to have a conjugate gaze at that time and outpatient prism glasses were recommended and also follow-up with neurology on outpatient basis was also recommended. Work-up in the emergency room today CT scan of the head reveals: microvascular angiopathy and old small lacunar infarcts. No CT evidence of acute intracranial hemorrhage. Patient was evaluated by tele-neurologist. Recommendation is to have patient worked up for CVA. MRI brain IMPRESSION: 1. Mild microvascular ischemic changes in the white matter of both cerebral hemispheres. 2. Otherwise normal MRI brain without contrast. 08/10: Considering persistent headache and dizziness we will start the patient on meclizine while obtaining CTA of the head and neck. Posterior CVA still in consideration. Await PT OT evaluation. A Covid test was collected this morning we will order the test. Patient will also like to know. Continue aspirin as recommended. Awaiting echocardiogram. PT OT and speech swallow evaluation. Continue statin therapy. Patient's cough has resolved right-sided weakness PT evaluation is pending. Will recommend outpatient urology work-up. There was mention of urinary incontinence with the patient denies at this time. I advised him that he needs to have a primary care physician follow-up. (1) CVA (cerebral vascular accident) Current Visit: No Status: Acute Plan to address problem: Patient has known history of CVA. Unclear whether he is having a new episode. We will admit to telemetry and scheduled for carotid Doppler and MRI of the brain. Patient started on daily aspirin and statin. We will place consult to neurology for evaluation. (2) Headache Current Visit: Yes Status: Acute Plan to address problem: Place patient on analgesic medication as needed. (3) HTN (hypertension) Current Visit: No Status: Chronic Plan to address problem: We will resume routine home medications and monitor vital signs closely. (4) DVT prophylaxis Current Visit: No Status: Acute Plan to address problem: Patient placed on subcutaneous heparin. (5) Full code status Current Visit: No Status: Acute Plan to address problem: Patient is a full code. History Interval history: Patient seen and examined still complains of attendance of headache and dizziness on standing. Reports photophobia and phonophobia this time around. He ambulates with a cane and states has been doing this for 3 months due to the dizziness. Hospitalist Physical - Physical exam Narrative exam: General appearance: Present: no acute distress, well-nourished - EENT Eyes: Present: PERRL, EOM intact. Absent: scleral icterus ENT: hearing intact, clear oral mucosa, dentition normal, poor dentition - Neck Neck: Present: supple, normal ROM - Respiratory Respiratory effort: normal Respiratory: bilateral: CTA - Cardiovascular Rhythm: regular Heart Sounds: Present: S1 & S2, diastolic murmur. Absent: gallop, systolic murmur, rub - Extremities Extremities: no ischemia, pulses intact, pulses symmetrical, No edema, Full ROM Peripheral Pulses: within normal limits - Abdominal General gastrointestinal: Present: soft, non-tender, non-distended, normal bowel sounds. Absent: mass - Integumentary Integumentary: Present: clear, warm, dry. Absent: rash - Musculoskeletal Musculoskeletal: strength equal bilaterally - Psychiatric Psychiatric: appropriate mood/affect, intact judgment & insight, memory intact, cooperative - Neurologic Neurologic: CNII-XII intact, no focal deficits, moves all extremities - Constitutional Vitals: Temp Pulse Resp BP Pulse Ox 99.0 F 108 H 18 110/76 83 L 08/10/20 05:37 08/10/20 05:37 08/10/20 05:37 08/10/20 05:37 08/10/20 05:37 General appearance: Present: no acute distress, well-nourished Results - Labs CBC & Chem 7: 08/10/20 04:35 08/10/20 04:35 Labs: Laboratory Last Values WBC 5.8 K/mm3 (4.5-11.0) 08/10/20 04:35 RBC 4.41 M/mm3 (3.65-5.03) 08/10/20 04:35 Hgb 14.0 gm/dl (11.8-15.2) 08/10/20 04:35 Hct 41.6 % (35.5-45.6) 08/10/20 04:35 MCV 94 fl (84-94) 08/10/20 04:35 MCH 32 pg (28-32) 08/10/20 04:35 MCHC 34 % (32-34) 08/10/20 04:35 RDW 12.7 % (13.2-15.2) L 08/10/20 04:35 Plt Count 287 K/mm3 (140-440) 08/10/20 04:35 Lymph % (Auto) 21.8 % (13.4-35.0) 08/10/20 04:35 [place] % (Auto) 12.1 % (0.0-7.3) H 08/10/20 04:35 Eos % (Auto) 8.5 % (0.0-4.3) H 08/10/20 04:35 Baso % (Auto) 0.6 % (0.0-1.8) 08/10/20 04:35 Lymph # (Auto) 1.3 K/mm3 (1.2-5.4) 08/10/20 04:35 [place] # (Auto) 0.7 K/mm3 (0.0-0.8) 08/10/20 04:35 Eos # (Auto) 0.5 K/mm3 (0.0-0.4) H 08/10/20 04:35 Baso # (Auto) 0.0 K/mm3 (0.0-0.1) 08/10/20 04:35 Seg Neutrophils % 57.0 % (40.0-70.0) 08/10/20 04:35 Seg Neutrophils # 3.3 K/mm3 (1.8-7.7) 08/10/20 04:35 PT 13.5 Sec. (12.2-14.9) 08/10/20 04:35 INR 1.05 (0.87-1.13) 08/10/20 04:35 Sodium 137 mmol/L (137-145) 08/10/20 04:35 Potassium 3.9 mmol/L (3.6-5.0) 08/10/20 04:35 Chloride 102.0 mmol/L (98-107) 08/10/20 04:35 Carbon Dioxide 24 mmol/L (22-30) 08/10/20 04:35 Anion Gap 15 mmol/L 08/10/20 04:35 BUN 15 mg/dL (9-20) 08/10/20 04:35 Creatinine 1.0 mg/dL (0.8-1.3) 08/10/20 04:35 Estimated GFR > 60 ml/min 08/10/20 04:35 BUN/Creatinine Ratio 15 % 08/10/20 04:35 Glucose 86 mg/dL (75-100) 08/10/20 04:35 POC Glucose 79 mg/dL (70-105) 08/08/20 22:28 Calcium 9.0 mg/dL (8.4-10.2) 08/10/20 04:35 Triglycerides 100 mg/dL (2-149) 08/10/20 04:35 Cholesterol 132 mg/dL (50-199) 08/10/20 04:35 LDL Cholesterol Direct 91 mg/dL (50-130) 08/10/20 04:35 HDL Cholesterol 27 mg/dL (40-59) L 08/10/20 04:35 Cholesterol/HDL Ratio 4.88 % 08/10/20 04:35 Urine Color Delmis (Yellow) 08/08/20 23:24 Urine Turbidity Clear (Clear) 08/08/20 23:24 Urine pH 5.0 (5.0-7.0) 08/08/20 23:24 Ur Specific [place] 1.023 (1.003-1.030) 08/08/20 23:24 Urine Protein 30 mg/dl mg/dL (Negative) 08/08/20 23:24 Urine Glucose (UA) Neg mg/dL (Negative) 08/08/20 23:24 Urine Ketones Neg mg/dL (Negative) 08/08/20 23:24 Urine Blood Neg (Negative) 08/08/20 23:24 Urine Nitrite Neg (Negative) 08/08/20 23:24 Urine Bilirubin Neg (Negative) 08/08/20 23:24 Urine Urobilinogen 4.0 mg/dL (<2.0) 08/08/20 23:24 Ur Leukocyte Esterase Neg (Negative) 08/08/20 23:24 Urine WBC (Auto) 2.0 /HPF (0.0-6.0) 08/08/20 23:24 Urine RBC (Auto) 12.0 /HPF (0.0-6.0) 08/08/20 23:24 U Epithel Cells (Auto) 1.0 /HPF (0-13.0) 08/08/20 23:24 Hyaline Casts 6 /LPF 08/08/20 23:24 Urine Mucus 3+ /HPF 08/08/20 23:24 - Diagnostic Impressions Diagnostic Impressions: Echocardiogram 08/09/20 00:36 Transthoracic Echocardiogram Indication: Stroke BP: 96/58 HR: 93 Conclusions *Global left ventricular systolic function is normal. *The estimated ejection fraction is 50-55%. *There is no left ventricular hypertrophy. *There is an E to A reversal in the mitral valve flow pattern suggestive of diastolic dysfunction. *The right ventricular global systolic function is normal. *There is no evidence of aortic regurgitation. *There is trace of mitral regurgitation. *There is trace tricuspid regurgitation. *The right ventricular systolic pressure is calculated at 27 mmHg. *There is trace pulmonic regurgitation. *No atrial septal defected is demonstrated by agitated saline contrast. Findings Left Ventricle: The left ventricular chamber size is normal. There is no left ventricular hypertrophy. Global left ventricular wall motion and contractility are within normal limits. Global left ventricular systolic function is normal. The estimated ejection fraction is 50-55%. There is an E to A reversal in the mitral valve flow pattern suggestive of diastolic dysfunction. Left Atrium: The left atrial chamber size is normal. Right Ventricle: The right ventricular cavity size is normal. The right ventricular global systolic function is normal. Right Atrium: The right atrial cavity size is normal. No atrial septal defected is demonstrated by agitated saline contrast. Aortic Valve: The aortic valve leaflets are mildly thickened. There is no evidence of aortic regurgitation. Mitral Valve: The mitral valve leaflets are mildly thickened. There is trace of mitral regurgitation. Tricuspid Valve: The tricuspid valve leaflets are normal. There is trace tricuspid regurgitation. The right ventricular systolic pressure is calculated at 27 mmHg. Pulmonic Valve: There is no evidence of pulmonic valve thickening. There is trace pulmonic regurgitation. Pericardium: There is no pericardial effusion. Aorta: The aorta appears normal. Contrast: Intravenous agitated saline contrast was used to assess intracardiac shunting. Measurements Chambers 2D Name Value Normal Range IVSd (2D) 0.87 cm (0.6 - 1.1) LVPWd (2D) 1.09 cm (0.6 - 1.1) LVIDd (2D) 3.96 cm (3.7 - 5.6) LVIDs (2D) 3.09 cm (2 - 3.8) LV FS (2D) 22.11 % - EF Teichholz (2D) 45.21 % - Ao root diameter (2D) 3.16 cm (2 - 3.7) Volumes/Mass Name Value Normal Range LA ESV SP 4CH (A/L) 24.75 ml - LA ESV SP 2CH (A/L) 30.33 ml - LA ESV BP (A/L) 28.42 ml - LA ESV BP (A/L) index 16.91 ml/m2 - LA ESV SP 4CH (MOD) 22.26 ml - LA ESV SP 2CH (MOD) 29.25 ml - LA ESV BP (MOD) 26.38 ml - LA ESV BP (MOD) index 15.7 ml/m2 - Diastolic/Systolic Function Name Value Normal Range MV E-wave Vmax 0.56 m/sec - MV deceleration time 217.85 msec - MV A-wave Vmax 0.93 m/sec - MV E:A ratio 0.6 ratio - Aortic Valve Name Value Normal Range AV Vmax 1.15 m/sec - AV VTI 20.28 cm - AV peak gradient 5.33 mmHg - AV mean gradient 3.33 mmHg - LVOT diameter 2.08 cm - LVOT Vmax 0.78 m/sec - LVOT VTI 13.49 cm - LVOT peak gradient 2.46 mmHg - LVOT mean gradient 1.11 mmHg - SV LVOT 45.99 ml - YULISA (continuity Vmax) 2.32 cm2 - YULISA (continuity VTI) 2.27 cm2 - Ascending Ao 2.82 cm - Tricuspid Valve Name Value Normal Range TR Vmax 2.46 m/sec - TR peak gradient 24 mmHg - RAP 3 mmHg - RVSP 27 mmHg - IVC diameter 1.22 cm (1.2 - 2.3) Pulmonic Valve/Qp:Qs Name Value Normal Range PV Vmax 0.69 m/sec - PV peak gradient 1.91 mmHg - VT end-diastolic Vmax 1.42 m/sec - PV acceleration time 129.4 msec - Dumas/IV: Voiding Method Urinal IV Catheter Type [Left Hand] INT / Saline Lock Active Medications - Current Medications Current Medications: Generic Name Dose Route Start Last Admin Trade Name Freq PRN Reason Stop Dose Admin Acetaminophen 650 mg 08/09/20 00:32 Acetaminophen 325 Mg Tab PO Q4H PRN Pain MILD(1-3)/Fever >100.5/CHRISTIANSEN Aspirin 325 mg 08/09/20 10:00 08/10/20 09:20 Aspirin 325 Mg Tab PO 325 mg QDAY PRANEETH Administration Atorvastatin Calcium 40 mg 08/09/20 22:00 08/09/20 22:33 Atorvastatin 40 Mg Tab PO 40 mg QHS PRANEETH Administration Bisacodyl 10 mg 08/09/20 00:32 Bisacodyl 10 Mg Rect Supp VT QDAY PRN Constipation Heparin Sodium (Porcine) 5,000 unit 08/09/20 06:00 08/10/20 06:10 Heparin 5,000 Unit/1 Ml Vial SUB-Q Not Given Q8HR PRANEETH Magnesium Hydroxide 30 ml 08/09/20 00:32 Magnesium Hydroxide (Mom) Oral Liqd Udc PO Q4H PRN Constipation Metoclopramide HCl 10 mg 08/09/20 00:32 Metoclopramide 10 Mg Tab PO Q6H PRN Nausea And Vomiting Morphine Sulfate 2 mg 08/09/20 00:32 Morphine 2 Mg/1 Ml Inj IV Q4H PRN Pain, Moderate (4-6) Nifedipine 60 mg 08/10/20 00:35 08/10/20 09:20 Nifedipine Xl 60 Mg Tab PO 60 mg Q12HR PRANEETH Administration Ondansetron HCl 4 mg 08/09/20 00:32 Ondansetron 4 Mg/2 Ml Inj IV Q8H PRN Nausea And Vomiting Promethazine HCl 25 mg 08/09/20 00:32 Promethazine 25 Mg Rect Supp VT Q6H PRN Nausea And Vomiting Sodium Chloride 10 ml 08/09/20 10:00 08/10/20 09:21 Sodium Chloride 0.9% 10 Ml Flush Syringe IV 10 ml BID PRANEETH Administration Sodium Chloride 10 ml 08/09/20 00:32 Sodium Chloride 0.9% 10 Ml Flush Syringe IV PRN PRN LINE FLUSH Nutrition/Malnutrition Assess - Dietary Evaluation Nutrition/Malnutrition Findings: Nutrition Notes Start: 08/09/20 09:51 Freq: Status: Active Protocol: Document 08/09/20 09:51 MACO (Rec: 08/09/20 09:55 MACO [id number]) Nutrition Notes Need for Assessment generated from: MD Order,Education Initial or Follow up Brief Note Current Diagnosis COPD,Coronary Artery Disease, Hypertension,Stroke Current Diet Cardiac Labs/Tests reviewed Pertinent Medications reviewed Height 5 ft 4 in Weight 63.5 kg [place] Body Weight (kg) 59.09 BMI 24.0 Weight Status Appropriate Subjective/Other Information RD consulted for NTR recommendations and diet education. Pt received Heart Healthy diet education from RD on 01/18/20 during a previous admission sec to CVA. Burn Absent Trauma Absent Minimum of two criteria No Is patient on ventilator? No Is Patient Ambulatory and/or Out of Bed No REE-([facility]-confined to bed) 3851.748 Calculation [facility] for [facility]ations [facility] Additional Notes Pro needs 1-1.2g/k-76g/ day Fluid needs 1ml/kcal Nutrition Intervention Follow-Up By: 08/15/20 Additional Comments F/U: intakes
[2020-08-10] MEDS ORDERED: MECLIZINE 25 MG TAB PO PRN (11:32)
--- NOTE | 2020-08-10 17:20 | Cat Scan Report ---
CT angio head INDICATION / CLINICAL INFORMATION: 64 years Male; MAIN. TECHNIQUE: Thin cut axial images obtained through the head during IV bolus contrast administration. S agittal, coronal, and 3 plane MIP reconstructions performed by the technologist. NASCET type criteria used evaluate stenoses. Automated exposure control utilized for radiation reduction purposes. COMPARISON: The study is compared to the previous CTA of 01/13/2020. FINDINGS: INTERNAL CAROTID ARTERIES: There is continued atherosclerotic calcification involving the distal inte rnal carotid arteries without significant developing stenosis by NASCET criteria from the previous CT A. VERTEBROBASILAR SYSTEM: The findings remain neck compatible with occlusion of the intracranial right vertebral artery. There is no significant developing stenosis involving left vertebral or basilar art eries. CEREBRAL ARTERIES: There is developmental origin of the right DIRECTOR STRATEGY. There is no clear evidence o f significant developing stenosis of the cerebral arteries. ANEURYSM: The findings remain neck compatible with small 2-3 mm aneurysm directed laterally from the right MCA trifurcation, best seen on the axial source images at. This finding also correlates with th e prior exam. ADDITIONAL FINDINGS: Remainder of the surrounding soft tissues are grossly normal. IMPRESSION: There is continued occlusion of the intracranial right vertebral artery which correlates with the pre vious CTA of 01/13/2020. There is persistent atherosclerotic calcification involving distal internal carotid arteries without significant developing stenosis from the prior exam. The findings remain compatible with 2-3 mm aneurysm involving the right MCA trifurcation as detailed above Signer Name: Robbie Seals MD Signed: 08/10/2020 5:16 PM Workstation Name: [id number]
--- NOTE | 2020-08-10 17:39 | Cat Scan Report ---
CT angio neck INDICATION / CLINICAL INFORMATION: 64 years Male; CVA. TECHNIQUE: Thin cut axial images obtained through the head during IV bolus contrast administration. S agittal, coronal, and 3 plane MIP reconstructions performed by the technologist. NASCET type criteria used evaluate stenoses. All CT scans at this location are performed using CT dose reduction for ALAR A by means of automated exposure control. COMPARISON: None available. FINDINGS: CAROTID ARTERIES: There is continued mild foci of calcified plaque involving carotid bifurcations and proximal internal carotid arteries without significant developing stenosis by NASCET criteria. There are also persistent small foci of calcification involving the distal cervical segments of ICAs witho ut significant narrowing. Vertebral arteries: There is continued occlusion occlusion of the right vertebral artery distal to th e C2 level which also correlates with the prior study there is notable small caliber of the more prox imal segments though there is opacification of the lumen without interval change. The left vertebral artery remains dominant without significant focal narrowing. ARCH: The origin of the left common carotid artery is not well visualized and appears to be obscured by the degree of dense contrast within the adjacent brachiocephalic vein. There is no significant marion rowing of this vessel on the previous CTA of 01/13/2020. Otherwise I, there is continued mild calcific ation of the aortic arch without significant narrowing of the remaining visualized arch of vessels. ADDITIONAL FINDINGS: Remainder of the surrounding soft tissues are grossly normal. IMPRESSION: There is continued mild atherosclerotic calcification involving proximal internal carotid arteries wi thout significant developing stenosis by NASCET criteria. There is persistent occlusion of the right vertebral artery at the C2 level as detailed above. Signer Name: Robbie Seals MD Signed: 08/10/2020 5:34 PM Workstation Name: [id number]
[2020-08-11] MEDS: HEPARIN 5,000 UNIT/1 ML VIAL SUB-Q SCH (04:59)
[2020-08-11 05:08] LABS: Hematocrit 39.2 % (35.5-45.6); Hemoglobin 13.7 gm/dl (11.8-15.2); Mean Corpuscular HGB Conc 35 % (32-34); Mean Corpuscular Volume 92 fl (84-94); Platelet Count 284 K/mm3 (140-440); Red Blood Count 4.25 M/mm3 (3.65-5.03); Red Cell Distribution Width 12.7 % (13.2-15.2)
[2020-08-11 05:19] LABS: BUN/Creatinine Ratio 16; Blood Urea Nitrogen 18 mg/dL (9-20); Hemolysis Index 9
[2020-08-11 05:37] VITALS: BP 114/70
--- NOTE | 2020-08-11 07:48 | Discharge Summary ---
Providers - Providers Date of Admission: 08/09/20 00:28 Attending physician: JANNIE STEPHENS MD 08/09/20 00:32 Consult to Physician [CONS] Routine Comment: Consulting Provider: SAIRA NAVARRETE Physician Instructions: Reason For Exam: Headache,dizziness. R/O CVA 08/09/20 00:34 Consult to Dietitian/Nutrition [CONS] Routine Physician Instructions: Reason For Exam: Reason for Consult: Nutrition Recommendations Reason for Consult: Diet education Occupational Therapy Evaluate and Treat [CONS] Routine Comment: Reason For Exam: Neuro deficits Physical Therapy Evaluation and Treat [CONS] Routine Comment: Reason For Exam: Neuro deficits Primary care physician: BENZENE WASHER Hospitalization Reason for admission: Hemiplegic migraine Condition: Stable Hospital course: 64-year-old male with known history of CVA, bipolar disorder, COPD, hypertension presenting to the emergency room today complaining of headache and dizziness and having unsteady gait for about 1 week. Headache is said to be frontal and at times left-sided. He has had intermittent unsteady gait which has gotten worse over the past few days. He also indicates that he has had blurry vision. He denies any fever or chills, no chest pain, no shortness of breath, no nausea vomiting, no abdominal pain. Patient denies any weakness or tingling sensation in any extremities. Patient was seen in January this year having been admitted for stroke. He was found to have a conjugate gaze at that time and outpatient prism glasses were recommended and also follow-up with neurology on outpatient basis was also recommended. Work-up in the emergency room today CT scan of the head reveals: microvascular angiopathy and old small lacunar infarcts. No CT evidence of acute intracranial hemorrhage. Patient was evaluated by tele-neurologist. Recommendation is to have patient worked up for CVA. MRI brain IMPRESSION: 1. Mild microvascular ischemic changes in the white matter of both cerebral hemispheres. 2. Otherwise normal MRI brain without contrast. 08/10: Considering persistent headache and dizziness we will start the patient on meclizine while obtaining CTA of the head and neck. Posterior CVA still in consideration. Await PT OT evaluation. A Covid test was collected this morning we will order the test. Patient will also like to know. Continue aspirin as recommended. Awaiting echocardiogram. PT OT and speech swallow evaluation. Continue statin therapy. Patient's cough has resolved right-sided weakness PT evaluation is pending. Will recommend outpatient urology work-up. There was mention of urinary incontinence with the patient denies at this time. I advised him that he needs to have a primary care physician follow-up. 08/11: Patient clinically stable today ambulating without any dizziness noted. Findings of CTA discussed with the patient the patient is aware of the aneurysm and also are aware of the occlusion noted I recommended an outpatient follow-up with both neurosurgeon and also vascular surgeon he verbalized understanding he states that he has all his medications and does not need any repeat or renewal. He is clinically stable for discharge diagnosis at this point leads to was a TIA with underlying migraine presumed hemiplegic migraine at this time. (1) hemiplegic migraine with underlying TIA CVA ruled out (2) Headache Current Visit: Yes Status: Acute Plan to address problem: Place patient on analgesic medication as needed. (3) HTN (hypertension) Current Visit: No Status: Chronic Plan to address problem: We will resume routine home medications and monitor vital signs closely. 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 Absent: scleral icterus ENT: hearing intact, clear oral mucosa, dentition normal, poor dentition - Neck Neck: Present: supple, normal ROM - Respiratory Respiratory effort: normal Respiratory: bilateral: CTA - Cardiovascular Rhythm: regular Heart Sounds: Present: S1 & S2, diastolic murmur. Absent: gallop, systolic murmur, rub - Extremities Extremities: no ischemia, pulses intact, pulses symmetrical, No edema, Full ROM Peripheral Pulses: within normal limits - Abdominal General gastrointestinal: Present: soft, non-tender, non-distended, normal bowel sounds. Absent: mass - Integumentary Integumentary: Present: clear, warm, dry. Absent: rash - Musculoskeletal Musculoskeletal: strength equal bilaterally - Psychiatric Psychiatric: appropriate mood/affect, intact judgment & insight, memory intact, cooperative - Neurologic Neurologic: CNII-XII intact, no focal deficits, moves all extremities - Constitutional Vitals: Temp Pulse Resp BP Pulse Ox 98.6 F 104 H 20 114/70 86 08/11/20 05:34 08/11/20 05:34 08/11/20 05:34 08/11/20 05:34 08/11/20 05:34 Plan Activity: advance as tolerated, fall precautions Diet: low fat, low carbohydrate Special Instructions: record daily weights, record daily BP diary, physical therapy, occupational therapy Follow up with: PRIMARY CAREMD [Primary Care Provider] - 3-5 Days VANESSA CHRISTIE MD [Staff Physician] - 7 Days YAN FABIAN II, MD [Staff Physician] - 7 Days
[2020-08-11] MEDS: ASPIRIN 325 MG TAB PO SCH (09:17)
[2020-08-11] MEDS: NIFEdipine XL 60 MG TAB PO SCH (09:17)
== END 2020-08-11 11:45 | disposition home or self-care (01) ==
LOC: ED 12:39 → 3A 08-09 00:28
PROVIDERS: ADMIT Internal Medicine Geriatric Medicine; ATTEND Internal Medicine
DX: I63.9 Cerebral infarction, unspecified (principal); Z20.828 Contact with and (suspected) exposure to other viral communicable diseases; I10 Essential (primary) hypertension; J44.9 Chronic obstructive pulmonary disease, unspecified; F31.9 Bipolar disorder, unspecified; I25.10 Atherosclerotic heart disease of native coronary artery without angina pectoris; H55.00 Unspecified nystagmus; R47.1 Dysarthria and anarthria; R32 Unspecified urinary incontinence; H53.8 Other visual disturbances; I95.9 Hypotension, unspecified; R42 Dizziness and giddiness; R05 Cough; R51.9 Headache, unspecified; R29.704 NIHSS score 4; Z86.73 Personal history of transient ischemic attack (TIA), and cerebral infarction without residual deficits; Z95.1 Presence of aortocoronary bypass graft; Z87.891 Personal history of nicotine dependence; Z79.82 Long term (current) use of aspirin; Z86.79 Personal history of other diseases of the circulatory system; Z79.899 Other long term (current) drug therapy
CPT/HCPCS: 36415; 70450; 70496; 70498; 70551; 71045; 80048; 80061; 81001; 82962; 85025; 85027; 85610; 93005; 93306; 93880; 96372; 96374; 96375; 97162; 97165; 99285; A9270; G0378; J1200; J1644; J2765; J7120; Q9967; U0003

== ENCOUNTER 2020-08-20 16:22 | Emergency (ER) | payer SELFPAY ==
--- NOTE | 2020-08-20 17:49 | Event Note ---
ED Screening Note Date of service: 08/20/20 Time: 17:49 ED Screening Note: Complains of continue body aches, chills, dizziness, and headache since discharge 08/08/2020 CT and MRI without acute findings on 08/09/2020 This initial assessment/diagnostic orders/clinical plan/treatment(s) is/are tee bject to change based on patients health status, clinical progression and re- assessment by fellow clinical providers in the ED. Further treatment and workup at subsequent clinical providers discretion. Patient/guardian urged not to elope from the ED as their condition may be serious if not clinically assessed and managed. Initial orders include: Labs
[2020-08-20 18:26] LABS: Basophils # (Auto) 0.1 K/mm3 (0.0-0.1); Basophils % (Auto) 0.8 % (0.0-1.8); Eosinophils # (Auto) 0.3 K/mm3 (0.0-0.4); Eosinophils % (Auto) 4.4 % (0.0-4.3); Hematocrit 40.7 % (35.5-45.6); Hemoglobin 14.1 gm/dl (11.8-15.2); Lymphocytes # (Auto) 1.2 K/mm3 (1.2-5.4); Mean Corpuscular HGB Conc 35 % (32-34); Mean Corpuscular Volume 95 fl (84-94); Monocytes # (Auto) 0.8 K/mm3 (0.0-0.8); Monocytes % (Auto) 12.1 % (0.0-7.3); Platelet Count 346 K/mm3 (140-440); Red Cell Distribution Width 12.9 % (13.2-15.2)
[2020-08-20 18:45] LABS: Albumin 3.8 g/dL (3.9-5); Calcium 9.1 mg/dL (8.4-10.2)
--- NOTE | 2020-08-20 20:58 | XRay Report ---
CHEST 2 VIEWS INDICATION / CLINICAL INFORMATION: Body aches, chills. COMPARISON: 08/08/2020 FINDINGS: SUPPORT DEVICES: None. HEART / MEDIASTINUM: No significant abnormality. LUNGS / PLEURA: No significant pulmonary or pleural abnormality. No pneumothorax. ADDITIONAL FINDINGS: No significant additional findings. IMPRESSION: 1. No acute findings or significant interval change when compared to 08/08/2020. Signer Name: Prince Schmidt MD Signed: 08/20/2020 8:54 PM Workstation Name: [id number]
[2020-08-20] MEDS ORDERED: SODIUM CHLORIDE 0.9% 1000 ML 1,000 ML IV ONE (21:11)
--- NOTE | 2020-08-20 21:14 | Emergency Department Report ---
HPI - General Chief Complaint: Headache Time Seen by Provider: 08/20/20 20:51 - HPI HPI: Room 35 The patient is a 64-year-old male present with a chief complaint of headache. Patient was admitted to this hospital last week for headache. Patient was nico gnosed with hemiplegic migraine. The patient states the headache had resolved at the time of discharge but over the past 3 days he has had headaches intermittently at the calvarium. Patient denies any preceding trauma or history of fever. Patient denies nausea or vomiting. The patient states he only has a slight headache now and gives it a score of 1/10. ED Past Medical Hx - Past Medical History Previous Medical History?: Yes Hx Hypertension: Yes (non-compliance) Hx CVA: Yes Hx Heart Attack/AMI: Yes (x5) - Family History Family history: no significant - Social History Smoking Status: Former Smoker (None x6 months) Substance Use Type: None (Denies illicit drug use) - Medications Home Medications: Home Medications Medication Instructions Recorded Confirmed Last Taken Type Aspirin EC [Halfprin EC] 81 mg PO QDAY #90 tablet. 02/04/20 08/11/20 Unknown Rx AtorvaSTATin [Lipitor] 40 mg PO QHS #30 tablet 02/04/20 08/11/20 Unknown Rx Clopidogrel [Plavix] 75 mg PO QDAY #90 tablet 02/04/20 08/11/20 Unknown Rx Diclofenac 1% [Diclofenac 1% 1 applic TP TID tube 02/04/20 08/11/20 Unknown Rx topical gel] NIFEdipine XL [Procardia Xl] 60 mg PO Q12HR #60 tablet 02/04/20 08/11/20 Unknown Rx Nicotine [Habitrol] 14 mg TD QDAY #30 patch 02/04/20 08/11/20 Unknown Rx Pantoprazole [Protonix TAB] 40 mg PO QDAY #30 tablet 02/04/20 08/11/20 Unknown Rx Tamsulosin [Flomax] 0.4 mg PO HS #30 capsule 02/04/20 08/11/20 Unknown Rx Butalb/Acetamin/Caff 50-325-40 2 tab PO Q8HR PRN #20 tablet 08/20/20 Unknown Rx [Fioricet 50-325-40] ED Review of Systems ROS: Stated complaint: HEADACHE X'S 3DAYS Other details as noted in HPI Constitutional: denies: fever Eyes: denies: eye pain ENT: denies: throat pain Respiratory: no symptoms reported Cardiovascular: denies: chest pain Endocrine: no symptoms reported Gastrointestinal: denies: nausea, vomiting Genitourinary: denies: dysuria Musculoskeletal: denies: back pain Neurological: headache Physical Exam - Physical Exam Vital Signs: Vital Signs 08/20/20 16:33 Temperature 97.3 F L Pulse Rate 103 H Respiratory 16 Rate Blood Pressure 96/61 O2 Sat by Pulse 92 Oximetry Physical Exam: GENERAL: The patient is well-developed well-nourished male lying on stretcher not appearing to be in acute distress. [] HEENT: Normocephalic. Atraumatic. Extraocular motions are intact. Patient has moist mucous membranes. NECK: Supple. No meningitic signs are noted. There is no nuchal rigidity CHEST/LUNGS: Clear to auscultation. There is no respiratory distress noted. HEART/CARDIOVASCULAR: Regular. There is no tachycardia. There is no gallop rub or murmur. ABDOMEN: Abdomen is soft, nontender. Patient has normal bowel sounds. There is no abdominal distention. SKIN: There is no rash. There is no edema. There is no diaphoresis. NEURO: The patient is awake, alert, and oriented. The patient is cooperative. The patient has no focal neurologic deficits. The patient has normal speech. Cranial nerves II through XII grossly intact MUSCULOSKELETAL: There is no evidence of acute injury. ED Course Vital Signs 08/20/20 16:33 Temperature 97.3 F L Pulse Rate 103 H Respiratory 16 Rate Blood Pressure 96/61 O2 Sat by Pulse 92 Oximetry - Reevaluation(s) Reevaluation #1: 08/20/20 21:56 Repeat blood pressure systolic 130s ED Medical Decision Making - Lab Data Result diagrams: 08/20/20 18:13 08/20/20 18:13 Laboratory Tests 08/20/20 08/20/20 08/20/20 18:13 18:13 18:13 WBC 6.5 RBC 4.30 Hgb 14.1 Hct 40.7 MCV 95 H MCH 33 H MCHC 35 H RDW 12.9 L Plt Count 346 Lymph % (Auto) 19.0 [place] % (Auto) 12.1 H Eos % (Auto) 4.4 H Baso % (Auto) 0.8 Lymph # (Auto) 1.2 [place] # (Auto) 0.8 Eos # (Auto) 0.3 Baso # (Auto) 0.1 Seg Neutrophils % 63.7 Seg Neutrophils # 4.1 Sodium 137 Potassium 5.2 H Chloride 101.9 Carbon Dioxide 27 Anion Gap 13 BUN 17 Creatinine 1.3 Estimated GFR 56 BUN/Creatinine Ratio 13 Glucose 109 H Calcium 9.1 Total Bilirubin 0.30 AST 23 ALT 31 Alkaline Phosphatase 127 Troponin T < 0.010 Total Protein 7.5 Albumin 3.8 L Albumin/Globulin Ratio 1.0 - Radiology Data Radiology results: report reviewed (CT head), image reviewed (CT head) Findings [facility] [address] [id number] Cat Scan Report Signed Patient: LEIF VALDEZ MR#: [id number] : 1955 Acct:[id number] Age/Sex: 64 / M ADM Date: 08/20/20 Loc: ED Attending Dr: Ordering Physician: RUSH WHYTE MD Date of Service: 08/20/20 Procedure(s): CT head/brain wo con Accession Number(s): [id number] cc: RUSH WHYTE MD CT head/brain wo con INDICATION / CLINICAL INFORMATION: 64 years Male; Headache. TECHNIQUE: Routine CT head without contrast. All CT scans at this location are performed using CT dose reduction for ALARA by means of automated exposure control. COMPARISON: 08/08/2020 FINDINGS: BRAIN / INTRACRANIAL CONTENTS: Small lacunar infarcts are seen in the gangliocapsular regions, which are also noted on prior exam. It might be difficult to evaluate for small areas of ischemia without diffusion imaging by MRI. Otherwise, no acute hemorrhage, mass effect, midline shift, hydrocephalus, or acute, large territorial infarct. No signs of significant atrophy. Minimal, nonspecific white matter disease suggested. CRANIOCERVICAL JUNCTION: No significant abnormality. ORBITS: No significant abnormality of visualized orbits. SINUSES / MASTOIDS: Visualized paranasal sinuses and mastoid air cells are essentially clear. ADDITIONAL FINDINGS: Atherosclerotic disease is seen in the anterior and posterior circulation. IMPRESSION: 1. No focal mass, hemorrhage, hydrocephalus, or acute, large territorial infarct. Follow-up with diffusion imaging by MRI, as clinically warranted. Signer Name: Rafael Walker MD, III Signed: 08/20/2020 9:41 PM Workstation Name: [email or web address] Transcribed By: HR Dictated By: Rafael Walker MD Electronically Authenticated By: Rafael Walker MD Signed Date/Time: 08/20/202140 DD/ 37 TD/TT: - Differential Diagnosis Headache, migraine, intracranial hemorrhage Critical care attestation.: If time is entered above; I have spent that time in minutes in the direct care of this critically ill patient, excluding procedure time. ED Disposition Clinical Impression: Headache Disposition: DC- TO HOME OR SELFCARE Is pt being admited?: No Does the pt Need Aspirin: No Condition: Stable Additional Instructions: Return to the emergency department should you develop worsening symptoms, inability to tolerate food or liquids, high fever or any other concerns Prescriptions: Butalb/Acetamin/Caff 50-325-40 [Fioricet 50-325-40] 2 tab PO Q8HR PRN #20 tablet PRN Reason: Headache Referrals: [facility] [Provider Group] - 3-5 Days RAMU VERA MD [Staff Physician] - 3-5 Days (Dr. Vera is a neurologist. Please follow-up with him for further evaluation) Time of Disposition: 21:57
--- NOTE | 2020-08-20 21:46 | Cat Scan Report ---
CT head/brain wo con INDICATION / CLINICAL INFORMATION: 64 years Male; Headache. TECHNIQUE: Routine CT head without contrast. All CT scans at this location are performed using CT dos e reduction for ALARA by means of automated exposure control. COMPARISON: 08/08/2020 FINDINGS: BRAIN / INTRACRANIAL CONTENTS: Small lacunar infarcts are seen in the gangliocapsular regions, which are also noted on prior exam. It might be difficult to evaluate for small areas of ischemia without d iffusion imaging by MRI. Otherwise, no acute hemorrhage, mass effect, midline shift, hydrocephalus, or acute, large territori al infarct. No signs of significant atrophy. Minimal, nonspecific white matter disease suggested. CRANIOCERVICAL JUNCTION: No significant abnormality. ORBITS: No significant abnormality of visualized orbits. SINUSES / MASTOIDS: Visualized paranasal sinuses and mastoid air cells are essentially clear. ADDITIONAL FINDINGS: Atherosclerotic disease is seen in the anterior and posterior circulation. IMPRESSION: 1. No focal mass, hemorrhage, hydrocephalus, or acute, large territorial infarct. Follow-up with diff usion imaging by MRI, as clinically warranted. Signer Name: Rafael Walker MD, III Signed: 08/20/2020 9:41 PM Workstation Name: [id number]
[2020-08-20 22:48] VITALS: BP 138/87
== END 2020-08-20 22:30 | disposition home or self-care (01) ==
LOC: ED 16:22
DX: R51.9 Headache, unspecified (principal); I10 Essential (primary) hypertension; I25.2 Old myocardial infarction; Z87.891 Personal history of nicotine dependence; Z79.899 Other long term (current) drug therapy; Z86.73 Personal history of transient ischemic attack (TIA), and cerebral infarction without residual deficits
CPT/HCPCS: 36415; 70450; 71046; 80053; 84484; 85025